=== PATIENT | female | born 1955 | race Caucasian/White ===

== ENCOUNTER 2018-12-06 21:05 | Inpatient (IN) | payer OTHER ==
[~2018-12-06] VITALS: Ht 175.3 cm; Wt 96.6 kg
--- NOTE | 2018-12-06 22:40 | PHYS DOC ---
Past Medical History Past Medical History: High Cholesterol, Hypertension, Hypothyroid, Other Additional Past Medical Histor: SVT. Past Surgical History: Other Additional Past Surgical Histo: INGUINAL HERNIA Alcohol Use: None Drug Use: None Adult General Chief Complaint Chief Complaint: URINARY RETENTION HPI HPI Patient is a 63 year old female who presents complaining of urinary retention. Patient states that she has not urinated since thirty this morning. Patient states that she has had three bottles of water without urinating. Patient states that she has attempted to urinate twice without success. Patient states that she has not felt the urge to urinate, however, she still attempted to urinate as she felt it was odd that she has not since this morning. Patient reports a similar episode last week in which she eventually was able to urinate. Patient notes that she is currently being treated for a UTI with Ciprofloxacin of which she is currently on day 5 of 7. Patient states that she received a phone call from her PCP today and was told that her sodium is low and she should be evaluated by a flag car driver as she is 'not filtering correctly '. Patient reports sensation of abdominal fullness but denies experiencing any pain. Patient states that she would like to attempt to urinate here in the ED. Denies hematuria, urinary frequency, urinary urgency, and dysuria. Review of Systems Review of Systems Constitutional: Denies fever or chills. Eyes: Denies change in visual acuity or eye pain. HENT: Denies nasal congestion or sore throat. Respiratory: Denies cough or shortness of breath. Cardiovascular: Denies chest pain or palpitations. GI: Denies abdominal pain, nausea, vomiting, or diarrhea [] : Denies dysuria or hematuria. Musculoskeletal: Denies back pain or joint pain. Integument: Denies rash or skin lesions. Neurologic: Denies headache, focal weakness or sensory changes. Complete systems were reviewed and found to be within normal limits, except as documented in this note. Current Medications Current Medications Current Medications Medications (Trade) Dose Ordered Sig/Jayden Start Time Stop Time Status Last Admin Dose Admin Ceftriaxone Sodium (Rocephin) 1 gm 1X ONCE 12/06/18 23:45 12/06/18 23:46 DC 12/06/18 23:45 1 GM Fluconazole (Diflucan) 100 mg 1X ONCE 12/06/18 23:45 12/06/18 23:46 DC 12/06/18 23:45 100 MG Magnesium Sulfate 50 ml @ 25 mls/hr 1X ONCE 12/06/18 23:45 12/07/18 01:44 12/06/18 23:45 25 MLS/HR Sodium Chloride 1,000 ml @ 1,000 mls/hr 1X ONCE 12/06/18 23:00 12/06/18 23:59 DC 12/06/18 22:49 1,000 MLS/HR Allergies Allergies Allergies Coded Allergies Type Severity Reaction Last Updated Verified codeine Allergy Intermediate 12/06/18 Yes Physical Exam Physical Exam Constitutional: Well developed, well nourished, no acute distress, non-toxic appearance. HENT: Normocephalic, atraumatic, oropharynx moist, no oral exudates. Eyes: PERRL, EOMI, conjunctiva without erythema. Neck: Normal range of motion, no tenderness, supple. Cardiovascular: Heart rate regular rhythm, no murmur. Lungs & Thorax: Bilateral breath sounds clear to auscultation. No wheezes or rhonchi. Abdomen: Bowel sounds normal, soft, no tenderness on palpation. No rebound or guarding. Skin: Warm, dry, no rash. Back: No tenderness, no CVA tenderness. Extremities: No tenderness, ROM intact, no edema. Neurologic: Alert and oriented X3, normal motor function, normal sensory function, no focal deficits noted. Psychologic: Affect normal. Speech within normal limits. Current Patient Data Vital Signs Vital Signs Date Time Temp Pulse Resp B/P (MAP) Pulse Ox O2 Delivery O2 Flow Rate FiO2 12/06/18 22:55 64 99 12/06/18 21:20 97.4 130/60 (83) Room Air 97.4 Lab Values Laboratory Tests Test 12/06/18 22:33 12/06/18 22:42 Urine Collection Type Unknown Urine Color Yellow Urine Clarity Clear Urine pH 6.5 Urine Specific [place] 1.010 Urine Protein >=300 mg/dL (NEG-TRACE) Urine Glucose (UA) Negative mg/dL (NEG) Urine Ketones (Stick) Negative mg/dL (NEG) Urine Blood Small (NEG) Urine Nitrite Negative (NEG) Urine Bilirubin Negative (NEG) Urine Urobilinogen Dipstick 0.2 mg/dL (0.2 mg/dL) Urine Leukocyte Esterase Small (NEG) Urine RBC 1-2 /HPF (0-2) Urine WBC 11-20 /HPF (0-4) Urine Squamous Epithelial Cells Mod /LPF Urine Bacteria Moderate /HPF (0-FEW) Urine Mucus Slight /LPF Urine Yeast Present /HPF White Blood Count 12.3 x10^3/uL (4.0-11.0) H Red Blood Count 3.67 x10^6/uL (3.50-5.40) Hemoglobin 12.9 g/dL (12.0-15.5) Hematocrit 38.1 % (36.0-47.0) Mean Corpuscular Volume 104 fL (79-100) H Mean Corpuscular Hemoglobin 35 pg (25-35) Mean Corpuscular Hemoglobin Concent 34 g/dL (31-37) Red Cell Distribution Width 13.7 % (11.5-14.5) Platelet Count 242 x10^3/uL (140-400) Neutrophils (%) (Auto) 78 % (31-73) H Lymphocytes (%) (Auto) 8 % (24-48) L Monocytes (%) (Auto) 12 % (0-9) H Eosinophils (%) (Auto) 1 % (0-3) Basophils (%) (Auto) 1 % (0-3) Neutrophils # (Auto) 9.5 x10^3uL (1.8-7.7) H Lymphocytes # (Auto) 1.0 x10^3/uL (1.0-4.8) Monocytes # (Auto) 1.5 x10^3/uL (0.0-1.1) H Eosinophils # (Auto) 0.2 x10^3/uL (0.0-0.7) Basophils # (Auto) 0.1 x10^3/uL (0.0-0.2) Sodium Level 121 mmol/L (136-145) L Potassium Level 4.0 mmol/L (3.5-5.1) Chloride Level 84 mmol/L (98-107) L Carbon Dioxide Level 22 mmol/L (21-32) Anion Gap 15 (6-14) H Blood Urea Nitrogen 23 mg/dL (7-20) H Creatinine 4.1 mg/dL (0.6-1.0) H Estimated GFR (Cockcroft-Gault) 11.0 BUN/Creatinine Ratio 6 (6-20) Glucose Level 118 mg/dL (70-99) H Calcium Level 8.3 mg/dL (8.5-10.1) L Magnesium Level 1.6 mg/dL (1.8-2.4) L Total Bilirubin 0.7 mg/dL (0.2-1.0) Aspartate Amino Transferase (AST) 15 U/L (15-37) Alanine Aminotransferase (ALT) 14 U/L (14-59) Alkaline Phosphatase 84 U/L (46-116) Total Protein 6.9 g/dL (6.4-8.2) Albumin 3.2 g/dL (3.4-5.0) L Albumin/Globulin Ratio 0.9 (1.0-1.7) L Laboratory Tests 12/06/18 22:42 Laboratory Tests 12/06/18 22:42 EKG EKG [] Radiology/Procedures Radiology/Procedures [] Course & Med Decision Making Course & Med Decision Making Pertinent Labs and Imaging studies reviewed. (See chart for details) [] Dragon Disclaimer Dragon Disclaimer This electronic medical record was generated, in whole or in part, using a voice recognition dictation system. Departure Departure Impression: Primary Impression: Acute renal failure Additional Impressions: Hyponatremia Hypomagnesemia UTI (urinary tract infection) Yeast cystitis Disposition: ADMITTED INPATIENT Admitting Physician: Other (Riffel) Condition: GUARDED Referrals: JOEL FRYE (PCP) Critical Care Time Critical care time was 30 minutes which includes time at bedside, spent in discussion of patient's care with specialists and/or family members, with interpretation of laboratory and/or radiological studies and is exclusive of procedures. Problem Qualifiers Primary Impression: Acute renal failure Acute renal failure type: unspecified Qualified Codes: N17.9 - Acute kidney failure, unspecified Additional Impressions: UTI (urinary tract infection) Urinary tract infection type: acute cystitis Hematuria presence: without hematuria Qualified Codes: N30.00 - Acute cystitis without hematuria MARY CARMONA DO Dec 06, 2018 22:40
[2018-12-06 22:55] LABS: BASO # 0.1 x10^3/uL (0.0-0.2); BASO % 1 % (0-3); EOS # 0.2 x10^3/uL (0.0-0.7); EOS % 1 % (0-3); HEMATOCRIT 38.1 % (36.0-47.0); HEMOGLOBIN 12.9 g/dL (12.0-15.5); LYMPH % 8 % (24-48); MEAN CORPUSCULAR HEMOGLOBIN 35 pg (25-35); MEAN CORPUSCULAR HGB CONC 34 g/dL (31-37); MEAN CORPUSCULAR VOLUME 104 fL (79-100); MONO # 1.5 x10^3/uL (0.0-1.1); MONO % 12 % (0-9); NEUT # 9.5 x10^3uL (1.8-7.7); NEUT % 78 % (31-73); PLATELET COUNT 242 x10^3/uL (140-400); RED BLOOD COUNT 3.67 x10^6/uL (3.50-5.40); RED CELL DISTRIBUTION WIDTH 13.7 % (11.5-14.5); WHITE BLOOD COUNT 12.3 x10^3/uL (4.0-11.0)
[2018-12-06 22:55] LABS: BILIRUBIN,URINE NEGATIVE (NEG); CLARITY,URINE CLEAR; COLOR,URINE YELLOW; NITRITE,URINE NEGATIVE (NEG); PH,URINE 6.5; PROTEIN,URINE >=300 mg/dL (NEG-TRACE); UROBILINOGEN,URINE 0.2 mg/dL (0.2 mg/dL)
[2018-12-06 22:58] LABS: SQUAMOUS EPITHELIAL CELL,UR MOD /LPF
[2018-12-06 23:00] LABS: BACTERIA,URINE MODERATE /HPF (0-FEW); YEAST,URINE PRESENT /HPF
[2018-12-06] MEDS ORDERED: IV NORMAL SALINE 1000ML BAG 1,000 ML IV ONE (23:00)
[2018-12-06 23:03] LABS: CALCIUM 8.3 mg/dL (8.5-10.1); CREATININE 4.1 mg/dL (0.6-1.0)
[2018-12-06 23:09] LABS: ALBUMIN 3.2 g/dL (3.4-5.0); ALBUMIN/GLOBULIN RATIO 0.9 (1.0-1.7); MAGNESIUM 1.6 mg/dL (1.8-2.4); TOTAL BILIRUBIN 0.7 mg/dL (0.2-1.0); TOTAL PROTEIN 6.9 g/dL (6.4-8.2)
[2018-12-06] MEDS ORDERED: FLUCONAZOLE 100 MG TABLET. PO ONE (23:45)
[2018-12-06] MEDS ORDERED: MAGNESIUM SULFATE 2GM 50 ML IV ONE (23:45)
[2018-12-06] MEDS ORDERED: cefTRIAXone IV Push 1 GM VIAL. IVP ONE (23:45)
[2018-12-07] MEDS ORDERED: ONDANSETRON PF 4 MG/2 ML VIAL. IV PRN (00:30)
[2018-12-07] MEDS ORDERED: IV NORMAL SALINE 1000ML BAG 1,000 ML IV ONE (01:00)
[2018-12-07] MEDS ORDERED: LOSA-73 PO (01:36)
[2018-12-07] MEDS ORDERED: METO50TA6 PO (01:36)
[2018-12-07] MEDS ORDERED: LEVO75TA5 PO (01:36)
[2018-12-07] MEDS ORDERED: SENN-37 PO (01:36)
[2018-12-07] MEDS ORDERED: SIMV20TA3 PO (01:36)
[2018-12-07 02:29] VITALS: BP 110/49
[2018-12-07] MEDS: LORazepam 0.5 MG TABLET PO PRN ×3 (03:55→20:57)
[2018-12-07 05:47] LABS: CALCIUM 7.8 mg/dL (8.5-10.1); CREATININE 4.2 mg/dL (0.6-1.0); GFR 10.7; POTASSIUM 4.8 mmol/L (3.5-5.1)
[2018-12-07] MEDS: LEVOTHYROXINE 75 MCG TABLET PO SCH (06:38)
[2018-12-07] MEDS: IV NORMAL SALINE 1000ML BAG 1,000 ML IV SCH ×3 (06:40→22:30)
[2018-12-07 07:00] VITALS: BP 115/66
[2018-12-07] MEDS ORDERED: SODIUM CHLORIDE 3 % 100 ML IV ONE (09:00)
[2018-12-07] MEDS: METOPROLOL TART IMMED RELEASE 50 MG TABLET. PO SCH ×2 (09:10→20:55)
[2018-12-07] MEDS: SENNOSIDES/DOCUSATE 8.6/50MG TABLET. PO SCH (09:10)
[2018-12-07 11:00] VITALS: BP 108/66
--- NOTE | 2018-12-07 11:35 | HP ---
ADMIT DATE: 12/07/2018 CHIEF COMPLAINT: Urinary retention. HISTORY OF PRESENT ILLNESS: The patient is a pleasant 63-year-old female who has not been urinating much. She presented for evaluation, rates it at 9. She has associated anxiety. Tried taking some home meds, but that was not working. Her doctor told her to be on low sodium diet, so she has been trying to follow that. She describes her symptoms as irritating. While in the ER, she is noted to have severe hyponatremia of 121 and a white count of 12 and acute renal failure with a creatinine of 4.2. I discussed the case with ER physician. We are going to admit the patient and consult Nephrology. She will be getting some hypertonic saline as well. PAST MEDICAL HISTORY: Hyperlipidemia, hypertension, hypothyroidism, SVT, inguinal hernia. ALLERGIES: CODEINE. FAMILY HISTORY: Coronary artery disease. SOCIAL HISTORY: She does not drink, smoke or take drugs. MEDICATIONS: Reviewed, please refer to MRAD. She is on 5 including simvastatin, metoprolol, losartan, Senokot, Synthroid. REVIEW OF SYSTEMS: GENERAL: No history of weight change, weakness or fevers. SKIN: No bruising, hair changes or rashes. EYES: No blurred, double or loss of vision. NOSE AND THROAT: No history of nosebleeds, hoarseness or sore throat. HEART: No history of palpitations, chest pain or shortness of breath on exertion. LUNGS: Denies cough, hemoptysis, wheezing or shortness of breath. GASTROINTESTINAL: Denies changes in appetite, nausea, vomiting, diarrhea or constipation. GENITOURINARY: She complains of dysuria and low urine output. NEUROLOGIC: Denies history of numbness, tingling, tremor or weakness. PSYCHIATRIC: No history of panic, anxiety or depression. ENDOCRINE: No history of heat or cold intolerance, polyuria or polydipsia. EXTREMITIES: Denies muscle weakness, joint pain, pain on walking or stiffness. PHYSICAL EXAMINATION: VITAL SIGNS: Temperature is afebrile, pulse 92, respirations 16, blood pressure 144/90. GENERAL: She is alert, cooperative. HEART: Normal S1, S2. LUNGS: Clear. ABDOMEN: Soft. EXTREMITIES: Trace edema. SKIN: No rash. ENDOCRINE: No thyromegaly. LYMPHATICS: No cervical edema. HEMATOPOIETIC: No bruising. PSYCHIATRIC: She is stable, a little anxious though. LABORATORY DATA: Electrolytes: Sodium 121, potassium 4, chloride 84, bicarbonate 22, BUN is 23, creatinine 4.1, glucose 118. ASSESSMENT AND PLAN: Severe hyponatremia and acute renal failure. The patient has been admitted. We are going to try some hypertonic saline. Consult Nephrology. IV fluids to try to hydrate her well and see if her creatinine will drop. Frequent labs. Deep venous thrombosis prophylaxis. Full code. Resume home meds except for the losartan. PROGNOSIS: Guarded. TOTAL TIME: 32 minutes. AMANDA IRBY DO DR: MARGY/amie JOB#: [id number] / [id number]
--- NOTE | 2018-12-07 11:48 | RAD ---
Renal ultrasound, 12/07/2018: HISTORY: Acute kidney injury The right kidney measures 13.5 cm in length while the left kidney measures 12.3 cm. There is no evidence of hydronephrosis or a renal mass. The renal parenchymal echogenicity is within normal limits. The bladder is largely collapsed and not adequately delineated. IMPRESSION: No significant renal abnormality is detected. Electronically signed by: Bridger Baca MD (12/07/2018 11:45 AM) [facility]
--- NOTE | 2018-12-07 14:06 | PDOC2 ---
CONSULT Date of Consult Date of Consult DATE: 12/07/18 TIME: 13:51 Reason for Consult Reason for Consult: RENAL FAILURE AND LOW NA Referring Physician Referring Physician: ANITAFEL Identification/Chief Complaint Chief Complaint ABNORMAL LABS Source Source: Chart review, Patient History of Present Illness Reason for Visit: THIS IS A 63 YR OLD PT WHO SEES DR JOEL FRYE OP. SHE WAS SEEN IN 2016 AT WHICH TIME HER LABS WERE NORMAL. SHE WAS TREATED FOR AN UTI LAST WEEK WITH [facility]. HER FIRST VISIT IN THE OFFICE SINCE 2015 WAS LAST WEEK ON Thursday12-02-18. AT WHICH TIME LABS WERE DRAWN AND SHE WAS NOTIFIED OF LAB RESULTS YESTERDAY AND TOLD TO GO TO THE ER PER THE WET SUIT GLUER AT DR WASHBURN OFFICE. PT STATES THAT SHE HAS NOT BEEN ABLE TO URINATE AND THEREFORE CAME TO THE ER. NO NEPHROTOXINS NOTED. NO NSAIDS. NO HX OF ANY KIDNEY OR BLADDER SURGERIES HEMATURIA NOTED. NO OTHER HX. PT DOES STATE THAT SHE RAN OUT OF HER HTN MEDS AND TOOK ONE OF HER MOTHERS BP MEDS BUT CANNOT RECALL WHAT IT IS. SHE IS A POOR HISTORIAN. OP MEDS PER OFFICE INDICATED METOPROLOL AND LOSARTAN HER ONLY TWO ANTIHYPERTENSIVES. APPETITE NOT THE BEST PER PT BUT N/V OR DIARRHEA Past Medical History Cardiovascular: HTN, Hyperlipidemia, Other (PSVT) Pulmonary: Other (ALLERGIC RHINITIS) GI: No pertinent hx Heme/Onc: No pertinent hx Renal/: No pertinent hx Endocrine: Hypothyroidism Social History Quit Drugs: None Lives: with Family Current Problem List Problem List Problems Medical Problems: (1) Acute renal failure Status: Acute (2) Hypomagnesemia Status: Acute (3) Hyponatremia Status: Acute (4) UTI (urinary tract infection) Status: Acute (5) Yeast cystitis Status: Acute Current Medications Current Medications Current Medications Sodium Chloride 1,000 ml @ 1,000 mls/hr 1X ONCE IV Last administered on at 22:49; Start 12/06/18 at 23:00; Stop 12/06/18 at 23:59; Status DC Magnesium Sulfate 50 ml @ 25 mls/hr 1X ONCE IV Last administered on 12/06/18at 23:45; Start 12/06/18 at 23:45; Stop 12/07/18 at 01:44; Status DC Ceftriaxone Sodium (Rocephin) 1 gm 1X ONCE IVP Last administered on 12/06/18at 23:45; Start 12/06/18 at 23:45; Stop 12/06/18 at 23:46; Status DC Fluconazole (Diflucan) 100 mg 1X ONCE PO Last administered on 12/06/18at 23:45; Start 12/06/18 at 23:45; Stop 12/06/18 at 23:46; Status DC Ondansetron HCl (Zofran) 4 mg PRN Q8HRS PRN IV NAUSEA/VOMITING 1ST CHOICE Last administered on 12/07/18at 00:38; Start 12/07/18 at 00:30; Stop 12/08/18 at 00:29 Sodium Chloride 1,000 ml @ 100 mls/hr 1X ONCE IV Last administered on at 02:05; Start 12/07/18 at 01:00; Stop 12/07/18 at 10:59; Status DC Levothyroxine Sodium (Synthroid) 75 mcg DAILY06 PO Last administered on at 06:38; Start 12/07/18 at 06:00 Metoprolol Tartrate (Lopressor) 50 mg BID PO Last administered on 12/07/18at 09: 10; Start 12/07/18 at 09:00 Senna/Docusate Sodium (Senna Plus) 1 tab DAILY PO Last administered on at 09:10; Start 12/07/18 at 09:00 Simvastatin (Zocor) 20 mg HS PO ; Start 12/07/18 at 21:00 Lorazepam (Ativan) 0.5 mg PRN Q6HRS PRN PO ANXIETY / AGITATION Last administered on 12/07/18at 10:26; Start 12/07/18 at 03:00 Sodium Chloride 1,000 ml @ 100 mls/hr Q10H IV Last administered on 12/07/18 10 :25; Start 12/07/18 at 06:00 Sodium Chloride 100 ml @ 30 mls/hr 1X ONCE IV Last administered on 12/07/18 10:25; Start 12/07/18 at 09:00; Stop 12/07/18 at 12:19; Status DC Active Scripts Active Reported Metoprolol Tartrate 50 Mg Tablet 50 Mg PO BID Simvastatin 20 Mg Tablet 20 Mg PO HS Levothyroxine Sodium 75 Mcg Tablet 75 Mcg PO DAILYAC Senokot-S Tablet (Sennosides/Docusate Sodium) 1 Each Tablet 1 Each PO DAILY Losartan Potassium 50 Mg Tablet 50 Mg PO DAILY Allergies Allergies: Coded Allergies: codeine (Verified Allergy, Intermediate, 12/06/18) ROS General: YES: Fatigue, Malaise, Appetite Eyes: Yes Decreased vision HEENT: YES: Heacaches ALLERGY AND IMMUNOLOGY: YES: Seasonal Allergies Respiratory: YES: Cough Gastrointestinal: Yes Constipation Genitourinary: YES Retention Musculoskeletal: Yes Muscular Weakness Neurological: Yes Weakness Skin: Yes Dry Skin Physical Exam General: Alert, Oriented X3, Cooperative, No acute distress, mild distress HEENT: Atraumatic, PERRLA, EOMI, Mucous membr. moist/pink Lungs: Clear to auscultation Heart: Regular rate, Normal S1, Normal S2 Abdomen: Normal bowel sounds, Soft, No tenderness Extremities: No clubbing, No cyanosis Skin: No breakdown Neuro: Normal speech, Sensation intact Psych/Mental Status: Mental status NL, Mood NL MUSCULOSKELETAL: No joint tenderness, No deformity, No swelling Vitals VITALS Vital Signs Date Time Temp Pulse Resp B/P (MAP) Pulse Ox O2 Delivery O2 Flow Rate FiO2 12/07/18 11:00 98.1 65 16 108/66 (80) 96 Room Air 98.1 Labs Labs Laboratory Tests Test 12/06/18 22:33 12/06/18 22:42 12/07/18 05:00 Urine Collection Type Unknown Urine Color Yellow Urine Clarity Clear Urine pH 6.5 Urine Specific [place] 1.010 Urine Protein >=300 mg/dL (NEG-TRACE) Urine Glucose (UA) Negative mg/dL (NEG) Urine Ketones (Stick) Negative mg/dL (NEG) Urine Blood Small (NEG) Urine Nitrite Negative (NEG) Urine Bilirubin Negative (NEG) Urine Urobilinogen Dipstick 0.2 mg/dL (0.2 mg/dL) Urine Leukocyte Esterase Small (NEG) Urine RBC 1-2 /HPF (0-2) Urine WBC 11-20 /HPF (0-4) Urine Squamous Epithelial Cells Mod /LPF Urine Bacteria Moderate /HPF (0-FEW) Urine Mucus Slight /LPF Urine Yeast Present /HPF White Blood Count 12.3 x10^3/uL (4.0-11.0) Red Blood Count 3.67 x10^6/uL (3.50-5.40) Hemoglobin 12.9 g/dL (12.0-15.5) Hematocrit 38.1 % (36.0-47.0) Mean Corpuscular Volume 104 fL (79-100) Mean Corpuscular Hemoglobin 35 pg (25-35) Mean Corpuscular Hemoglobin Concent 34 g/dL (31-37) Red Cell Distribution Width 13.7 % (11.5-14.5) Platelet Count 242 x10^3/uL (140-400) Neutrophils (%) (Auto) 78 % (31-73) Lymphocytes (%) (Auto) 8 % (24-48) Monocytes (%) (Auto) 12 % (0-9) Eosinophils (%) (Auto) 1 % (0-3) Basophils (%) (Auto) 1 % (0-3) Neutrophils # (Auto) 9.5 x10^3uL (1.8-7.7) Lymphocytes # (Auto) 1.0 x10^3/uL (1.0-4.8) Monocytes # (Auto) 1.5 x10^3/uL (0.0-1.1) Eosinophils # (Auto) 0.2 x10^3/uL (0.0-0.7) Basophils # (Auto) 0.1 x10^3/uL (0.0-0.2) Sodium Level 121 mmol/L (136-145) 119 mmol/L (136-145) Potassium Level 4.0 mmol/L (3.5-5.1) 4.8 mmol/L (3.5-5.1) Chloride Level 84 mmol/L (98-107) 85 mmol/L (98-107) Carbon Dioxide Level 22 mmol/L (21-32) 24 mmol/L (21-32) Anion Gap 15 (6-14) 10 (6-14) Blood Urea Nitrogen 23 mg/dL (7-20) 23 mg/dL (7-20) Creatinine 4.1 mg/dL (0.6-1.0) 4.2 mg/dL (0.6-1.0) Estimated GFR (Cockcroft-Gault) 11.0 10.7 BUN/Creatinine Ratio 6 (6-20) Glucose Level 118 mg/dL (70-99) 118 mg/dL (70-99) Calcium Level 8.3 mg/dL (8.5-10.1) 7.8 mg/dL (8.5-10.1) Magnesium Level 1.6 mg/dL (1.8-2.4) Total Bilirubin 0.7 mg/dL (0.2-1.0) Aspartate Amino Transf (AST/SGOT) 15 U/L (15-37) Alanine Aminotransferase (ALT/SGPT) 14 U/L (14-59) Alkaline Phosphatase 84 U/L (46-116) Total Protein 6.9 g/dL (6.4-8.2) Albumin 3.2 g/dL (3.4-5.0) Albumin/Globulin Ratio 0.9 (1.0-1.7) Thyroid Stimulating Hormone (TSH) 2.302 uIU/mL (0.358-3.74) Laboratory Tests Test 12/06/18 22:33 12/06/18 22:42 12/07/18 05:00 Urine Collection Type Unknown Urine Color Yellow Urine Clarity Clear Urine pH 6.5 Urine Specific [place] 1.010 Urine Protein >=300 mg/dL (NEG-TRACE) Urine Glucose (UA) Negative mg/dL (NEG) Urine Ketones (Stick) Negative mg/dL (NEG) Urine Blood Small (NEG) Urine Nitrite Negative (NEG) Urine Bilirubin Negative (NEG) Urine Urobilinogen Dipstick 0.2 mg/dL (0.2 mg/dL) Urine Leukocyte Esterase Small (NEG) Urine RBC 1-2 /HPF (0-2) Urine WBC 11-20 /HPF (0-4) Urine Squamous Epithelial Cells Mod /LPF Urine Bacteria Moderate /HPF (0-FEW) Urine Mucus Slight /LPF Urine Yeast Present /HPF White Blood Count 12.3 x10^3/uL (4.0-11.0) Red Blood Count 3.67 x10^6/uL (3.50-5.40) Hemoglobin 12.9 g/dL (12.0-15.5) Hematocrit 38.1 % (36.0-47.0) Mean Corpuscular Volume 104 fL (79-100) Mean Corpuscular Hemoglobin 35 pg (25-35) Mean Corpuscular Hemoglobin Concent 34 g/dL (31-37) Red Cell Distribution Width 13.7 % (11.5-14.5) Platelet Count 242 x10^3/uL (140-400) Neutrophils (%) (Auto) 78 % (31-73) Lymphocytes (%) (Auto) 8 % (24-48) Monocytes (%) (Auto) 12 % (0-9) Eosinophils (%) (Auto) 1 % (0-3) Basophils (%) (Auto) 1 % (0-3) Neutrophils # (Auto) 9.5 x10^3uL (1.8-7.7) Lymphocytes # (Auto) 1.0 x10^3/uL (1.0-4.8) Monocytes # (Auto) 1.5 x10^3/uL (0.0-1.1) Eosinophils # (Auto) 0.2 x10^3/uL (0.0-0.7) Basophils # (Auto) 0.1 x10^3/uL (0.0-0.2) Sodium Level 121 mmol/L (136-145) 119 mmol/L (136-145) Potassium Level 4.0 mmol/L (3.5-5.1) 4.8 mmol/L (3.5-5.1) Chloride Level 84 mmol/L (98-107) 85 mmol/L (98-107) Carbon Dioxide Level 22 mmol/L (21-32) 24 mmol/L (21-32) Anion Gap 15 (6-14) 10 (6-14) Blood Urea Nitrogen 23 mg/dL (7-20) 23 mg/dL (7-20) Creatinine 4.1 mg/dL (0.6-1.0) 4.2 mg/dL (0.6-1.0) Estimated GFR (Cockcroft-Gault) 11.0 10.7 BUN/Creatinine Ratio 6 (6-20) Glucose Level 118 mg/dL (70-99) 118 mg/dL (70-99) Calcium Level 8.3 mg/dL (8.5-10.1) 7.8 mg/dL (8.5-10.1) Magnesium Level 1.6 mg/dL (1.8-2.4) Total Bilirubin 0.7 mg/dL (0.2-1.0) Aspartate Amino Transf (AST/SGOT) 15 U/L (15-37) Alanine Aminotransferase (ALT/SGPT) 14 U/L (14-59) Alkaline Phosphatase 84 U/L (46-116) Total Protein 6.9 g/dL (6.4-8.2) Albumin 3.2 g/dL (3.4-5.0) Albumin/Globulin Ratio 0.9 (1.0-1.7) Thyroid Stimulating Hormone (TSH) 2.302 uIU/mL (0.358-3.74) Assessment/Plan Assessment/Plan IMP SEVERE HYPONATREMIA ARCENIO-ETIOLOGY UNKNOWN RECENT UTI HTN HX LOW MAG PLAN HYDRATION AVOID NEPHROTOXINS 3 % SALINE URINE AND SERUM OSMO URINE LYTES CHECK TSH REPLACE MAG RENAL SONOGRAM PT WILL TRY TO FIND OUT WHICH MED SHE TOOK FROM HER MOTHER KATHLEEN MOBLEY MD Dec 07, 2018 14:06
[2018-12-07] MEDS ORDERED: MAGNESIUM SULFATE 2GM 50 ML IV ONE (14:15)
[2018-12-07 15:00] VITALS: BP 117/55
--- NOTE | 2018-12-07 15:02 | NUR ---
SW following pt for anticipated dc needs. Chart reviewed and discussed with RN. Pt lives at home with family. Nephrology currently following pt. No discharge recommendations noted at this time. Will continue to follow.
--- NOTE | 2018-12-07 16:55 | NUR ---
Relayed result of serum Na [address] Chi. Orders received for another round of sodium correction.
[2018-12-07] MEDS ORDERED: SODIUM CHLORIDE 3 % 300 ML IV ONE (17:00)
[2018-12-07 17:11] LABS: SODIUM, URINE 67 mmol/L (Not Estab.); UR POTASSIUM 12.3 mmol/L (Not Estab.)
[2018-12-07 19:30] VITALS: BP 117/60
[2018-12-07] MEDS ORDERED: MOME13HF2 IH (19:35)
[2018-12-07] MEDS: SIMVASTATIN 20 MG TABLET PO SCH (20:55)
[2018-12-07] MEDS: BUDESONIDE 0.5 MG/2 ML NEBU. NEB SCH (21:52)
[2018-12-07] MEDS: ALBUTEROL SULFATE 2.5 MG/3 ML NEBU. NEB SCH (21:53)
[2018-12-07 23:30] VITALS: BP 102/60
[2018-12-08 03:30] VITALS: BP 121/58
[2018-12-08 05:23] LABS: BASO # 0.1 x10^3/uL (0.0-0.2); BASO % 1 % (0-3); EOS % 0 % (0-3); HEMATOCRIT 34.4 % (36.0-47.0); HEMOGLOBIN 11.9 g/dL (12.0-15.5); LYMPH # 0.5 x10^3/uL (1.0-4.8); LYMPH % 6 % (24-48); MEAN CORPUSCULAR HEMOGLOBIN 36 pg (25-35); MEAN CORPUSCULAR HGB CONC 35 g/dL (31-37); MEAN CORPUSCULAR VOLUME 104 fL (79-100); MONO # 0.9 x10^3/uL (0.0-1.1); MONO % 11 % (0-9); NEUT # 6.9 x10^3uL (1.8-7.7); NEUT % 83 % (31-73); PLATELET COUNT 191 x10^3/uL (140-400); RED BLOOD COUNT 3.32 x10^6/uL (3.50-5.40); RED CELL DISTRIBUTION WIDTH 13.8 % (11.5-14.5); WHITE BLOOD COUNT 8.4 x10^3/uL (4.0-11.0)
[2018-12-08] MEDS: LEVOTHYROXINE 75 MCG TABLET PO SCH (06:03)
[2018-12-08 06:04] LABS: CALCIUM 7.7 mg/dL (8.5-10.1); CREATININE 5.2 mg/dL (0.6-1.0); GFR 8.3; MAGNESIUM 2.6 mg/dL (1.8-2.4); POTASSIUM 4.8 mmol/L (3.5-5.1)
[2018-12-08 07:20] VITALS: BP 111/74
[2018-12-08] MEDS: BUDESONIDE 0.5 MG/2 ML NEBU. NEB SCH ×2 (08:04→19:48)
[2018-12-08] MEDS: ALBUTEROL SULFATE 2.5 MG/3 ML NEBU. NEB SCH ×4 (08:04→19:50)
[2018-12-08] MEDS: SENNOSIDES/DOCUSATE 8.6/50MG TABLET. PO SCH (09:00)
[2018-12-08] MEDS ORDERED: NON FORMULARY ITEM (Mometasone/Formoterol (Dulera 100 Mcg/5 Mcg Inhaler) 2 PUFF) IH SCH (09:00)
[2018-12-08] MEDS: METOPROLOL TART IMMED RELEASE 50 MG TABLET. PO SCH ×2 (09:54→20:44)
[2018-12-08 10:56] VITALS: BP 103/61
--- NOTE | 2018-12-08 11:52 | PDOC ---
PROGRESS NOTES Chief Complaint Chief Complaint Hyponatremia and acute renal failure Urinary retention UTI HLD HTN Hypothyroidism SVT History of Present Illness History of Present Illness Pt sitting up in bed, watching TV Denies any new complaints Vitals Vitals Vital Signs Date Time Temp Pulse Resp B/P (MAP) Pulse Ox O2 Delivery O2 Flow Rate FiO2 12/08/18 10:56 98.3 72 20 103/61 (75) 95 Room Air 98.3 Physical Exam General: Alert, Oriented X3, Cooperative, No acute distress Heart: Regular rate, Normal S1, Normal S2, No murmurs Lungs: Clear, Other (No crackles, wheezing or ronchi) Abdomen: Normal bowel sounds, Soft, No tenderness Extremities: No clubbing, No cyanosis, No edema Skin: No rashes, No breakdown, No significant lesion Labs LABS Laboratory Tests Test 12/07/18 16:05 12/08/18 04:40 Sodium Level 121 mmol/L (136-145) 122 mmol/L (136-145) White Blood Count 8.4 x10^3/uL (4.0-11.0) Red Blood Count 3.32 x10^6/uL (3.50-5.40) Hemoglobin 11.9 g/dL (12.0-15.5) Hematocrit 34.4 % (36.0-47.0) Mean Corpuscular Volume 104 fL (79-100) Mean Corpuscular Hemoglobin 36 pg (25-35) Mean Corpuscular Hemoglobin Concent 35 g/dL (31-37) Red Cell Distribution Width 13.8 % (11.5-14.5) Platelet Count 191 x10^3/uL (140-400) Neutrophils (%) (Auto) 83 % (31-73) Lymphocytes (%) (Auto) 6 % (24-48) Monocytes (%) (Auto) 11 % (0-9) Eosinophils (%) (Auto) 0 % (0-3) Basophils (%) (Auto) 1 % (0-3) Neutrophils # (Auto) 6.9 x10^3uL (1.8-7.7) Lymphocytes # (Auto) 0.5 x10^3/uL (1.0-4.8) Monocytes # (Auto) 0.9 x10^3/uL (0.0-1.1) Eosinophils # (Auto) 0.0 x10^3/uL (0.0-0.7) Basophils # (Auto) 0.1 x10^3/uL (0.0-0.2) Potassium Level 4.8 mmol/L (3.5-5.1) Chloride Level 91 mmol/L (98-107) Carbon Dioxide Level 19 mmol/L (21-32) Anion Gap 12 (6-14) Blood Urea Nitrogen 25 mg/dL (7-20) Creatinine 5.2 mg/dL (0.6-1.0) Estimated GFR (Cockcroft-Gault) 8.3 Glucose Level 117 mg/dL (70-99) Calcium Level 7.7 mg/dL (8.5-10.1) Magnesium Level 2.6 mg/dL (1.8-2.4) Review of Systems Review of Systems Denies any F/C Denies N/V Denies CP, SOA Assessment and Plan Assessmemt and Plan Assessment: Acute renal failure, Cr 5.2 from 4.2 Hyponatremia, 122 from 119 Hypomagnesemia, resolved Urinary retention UTI yest cystitis HLD HTN Hypothyroidism, on Synthroid, TSH 2.3 SVT Plan: Refractory hyponatremia, appreciate Nephrology input Awaiting urine and serum osmolarity U/s revealed no significant renal abnormality NS @ 100/hr Recheck labs in am PT/OT Ordered Home meds, holding losartan Monitor I&O's Problems Medical Problems: (1) Acute renal failure Status: Acute (2) Hypomagnesemia Status: Acute (3) Hyponatremia Status: Acute (4) UTI (urinary tract infection) Status: Acute (5) Yeast cystitis Status: Acute Comment Review of Relevant I have reviewed the following items timmy (where applicable) has been applied. Labs Laboratory Tests Test 12/06/18 22:33 12/06/18 22:42 12/07/18 05:00 12/07/18 09:30 Urine Collection Type Unknown Urine Color Yellow Urine Clarity Clear Urine pH 6.5 Urine Specific Wells 1.010 Urine Protein >=300 mg/dL (NEG-TRACE) Urine Glucose (UA) Negative mg/dL (NEG) Urine Ketones (Stick) Negative mg/dL (NEG) Urine Blood Small (NEG) Urine Nitrite Negative (NEG) Urine Bilirubin Negative (NEG) Urine Urobilinogen Dipstick 0.2 mg/dL (0.2 mg/dL) Urine Leukocyte Esterase Small (NEG) Urine RBC 1-2 /HPF (0-2) Urine WBC 11-20 /HPF (0-4) Urine Squamous Epithelial Cells Mod /LPF Urine Bacteria Moderate /HPF (0-FEW) Urine Mucus Slight /LPF Urine Yeast Present /HPF White Blood Count 12.3 x10^3/uL (4.0-11.0) Red Blood Count 3.67 x10^6/uL (3.50-5.40) Hemoglobin 12.9 g/dL (12.0-15.5) Hematocrit 38.1 % (36.0-47.0) Mean Corpuscular Volume 104 fL (79-100) Mean Corpuscular Hemoglobin 35 pg (25-35) Mean Corpuscular Hemoglobin Concent 34 g/dL (31-37) Red Cell Distribution Width 13.7 % (11.5-14.5) Platelet Count 242 x10^3/uL (140-400) Neutrophils (%) (Auto) 78 % (31-73) Lymphocytes (%) (Auto) 8 % (24-48) Monocytes (%) (Auto) 12 % (0-9) Eosinophils (%) (Auto) 1 % (0-3) Basophils (%) (Auto) 1 % (0-3) Neutrophils # (Auto) 9.5 x10^3uL (1.8-7.7) Lymphocytes # (Auto) 1.0 x10^3/uL (1.0-4.8) Monocytes # (Auto) 1.5 x10^3/uL (0.0-1.1) Eosinophils # (Auto) 0.2 x10^3/uL (0.0-0.7) Basophils # (Auto) 0.1 x10^3/uL (0.0-0.2) Sodium Level 121 mmol/L (136-145) 119 mmol/L (136-145) Potassium Level 4.0 mmol/L (3.5-5.1) 4.8 mmol/L (3.5-5.1) Chloride Level 84 mmol/L (98-107) 85 mmol/L (98-107) Carbon Dioxide Level 22 mmol/L (21-32) 24 mmol/L (21-32) Anion Gap 15 (6-14) 10 (6-14) Blood Urea Nitrogen 23 mg/dL (7-20) 23 mg/dL (7-20) Creatinine 4.1 mg/dL (0.6-1.0) 4.2 mg/dL (0.6-1.0) Estimated GFR (Cockcroft-Gault) 11.0 10.7 BUN/Creatinine Ratio 6 (6-20) Glucose Level 118 mg/dL (70-99) 118 mg/dL (70-99) Calcium Level 8.3 mg/dL (8.5-10.1) 7.8 mg/dL (8.5-10.1) Magnesium Level 1.6 mg/dL (1.8-2.4) Total Bilirubin 0.7 mg/dL (0.2-1.0) Aspartate Amino Transf (AST/SGOT) 15 U/L (15-37) Alanine Aminotransferase (ALT/SGPT) 14 U/L (14-59) Alkaline Phosphatase 84 U/L (46-116) Total Protein 6.9 g/dL (6.4-8.2) Albumin 3.2 g/dL (3.4-5.0) Albumin/Globulin Ratio 0.9 (1.0-1.7) Thyroid Stimulating Hormone (TSH) 2.302 uIU/mL (0.358-3.74) Urine Sodium 67 mmol/L (Not Estab.) Urine Potassium 12.3 mmol/L (Not Estab.) Urine Chloride <60 mmol/L (Not Estab.) Test 12/07/18 16:05 12/08/18 04:40 Sodium Level 121 mmol/L (136-145) 122 mmol/L (136-145) White Blood Count 8.4 x10^3/uL (4.0-11.0) Red Blood Count 3.32 x10^6/uL (3.50-5.40) Hemoglobin 11.9 g/dL (12.0-15.5) Hematocrit 34.4 % (36.0-47.0) Mean Corpuscular Volume 104 fL (79-100) Mean Corpuscular Hemoglobin 36 pg (25-35) Mean Corpuscular Hemoglobin Concent 35 g/dL (31-37) Red Cell Distribution Width 13.8 % (11.5-14.5) Platelet Count 191 x10^3/uL (140-400) Neutrophils (%) (Auto) 83 % (31-73) Lymphocytes (%) (Auto) 6 % (24-48) Monocytes (%) (Auto) 11 % (0-9) Eosinophils (%) (Auto) 0 % (0-3) Basophils (%) (Auto) 1 % (0-3) Neutrophils # (Auto) 6.9 x10^3uL (1.8-7.7) Lymphocytes # (Auto) 0.5 x10^3/uL (1.0-4.8) Monocytes # (Auto) 0.9 x10^3/uL (0.0-1.1) Eosinophils # (Auto) 0.0 x10^3/uL (0.0-0.7) Basophils # (Auto) 0.1 x10^3/uL (0.0-0.2) Potassium Level 4.8 mmol/L (3.5-5.1) Chloride Level 91 mmol/L (98-107) Carbon Dioxide Level 19 mmol/L (21-32) Anion Gap 12 (6-14) Blood Urea Nitrogen 25 mg/dL (7-20) Creatinine 5.2 mg/dL (0.6-1.0) Estimated GFR (Cockcroft-Gault) 8.3 Glucose Level 117 mg/dL (70-99) Calcium Level 7.7 mg/dL (8.5-10.1) Magnesium Level 2.6 mg/dL (1.8-2.4) Laboratory Tests Test 12/07/18 16:05 12/08/18 04:40 Sodium Level 121 mmol/L (136-145) 122 mmol/L (136-145) White Blood Count 8.4 x10^3/uL (4.0-11.0) Red Blood Count 3.32 x10^6/uL (3.50-5.40) Hemoglobin 11.9 g/dL (12.0-15.5) Hematocrit 34.4 % (36.0-47.0) Mean Corpuscular Volume 104 fL (79-100) Mean Corpuscular Hemoglobin 36 pg (25-35) Mean Corpuscular Hemoglobin Concent 35 g/dL (31-37) Red Cell Distribution Width 13.8 % (11.5-14.5) Platelet Count 191 x10^3/uL (140-400) Neutrophils (%) (Auto) 83 % (31-73) Lymphocytes (%) (Auto) 6 % (24-48) Monocytes (%) (Auto) 11 % (0-9) Eosinophils (%) (Auto) 0 % (0-3) Basophils (%) (Auto) 1 % (0-3) Neutrophils # (Auto) 6.9 x10^3uL (1.8-7.7) Lymphocytes # (Auto) 0.5 x10^3/uL (1.0-4.8) Monocytes # (Auto) 0.9 x10^3/uL (0.0-1.1) Eosinophils # (Auto) 0.0 x10^3/uL (0.0-0.7) Basophils # (Auto) 0.1 x10^3/uL (0.0-0.2) Potassium Level 4.8 mmol/L (3.5-5.1) Chloride Level 91 mmol/L (98-107) Carbon Dioxide Level 19 mmol/L (21-32) Anion Gap 12 (6-14) Blood Urea Nitrogen 25 mg/dL (7-20) Creatinine 5.2 mg/dL (0.6-1.0) Estimated GFR (Cockcroft-Gault) 8.3 Glucose Level 117 mg/dL (70-99) Calcium Level 7.7 mg/dL (8.5-10.1) Magnesium Level 2.6 mg/dL (1.8-2.4) Medications Current Medications Sodium Chloride 1,000 ml @ 1,000 mls/hr 1X ONCE IV Last administered on at 22:49; Start 12/06/18 at 23:00; Stop 12/06/18 at 23:59; Status DC Magnesium Sulfate 50 ml @ 25 mls/hr 1X ONCE IV Last administered on 12/06/18at 23:45; Start 12/06/18 at 23:45; Stop 12/07/18 at 01:44; Status DC Ceftriaxone Sodium (Rocephin) 1 gm 1X ONCE IVP Last administered on 12/06/18at 23:45; Start 12/06/18 at 23:45; Stop 12/06/18 at 23:46; Status DC Fluconazole (Diflucan) 100 mg 1X ONCE PO Last administered on 12/06/18 23:45; Start 12/06/18 at 23:45; Stop 12/06/18 at 23:46; Status DC Ondansetron HCl (Zofran) 4 mg PRN Q8HRS PRN IV NAUSEA/VOMITING 1ST CHOICE Last administered on 12/07/18 00:38; Start 12/07/18 at 00:30; Stop 12/08/18 at 00:29; Status DC Sodium Chloride 1,000 ml @ 100 mls/hr 1X ONCE IV Last administered on 02:05; Start 12/07/18 at 01:00; Stop 12/07/18 at 10:59; Status DC Levothyroxine Sodium (Synthroid) 75 mcg DAILY06 PO Last administered on 06:03; Start 12/07/18 at 06:00 Metoprolol Tartrate (Lopressor) 50 mg BID PO Last administered on 12/08/18 09: 54; Start 12/07/18 at 09:00 Senna/Docusate Sodium (Senna Plus) 1 tab DAILY PO Last administered on 09:10; Start 12/07/18 at 09:00 Simvastatin (Zocor) 20 mg HS PO Last administered on 12/07/18 20:55; Start 12/07 at 21:00 Lorazepam (Ativan) 0.5 mg PRN Q6HRS PRN PO ANXIETY / AGITATION Last administered on 12/07/18 20:57; Start 12/07/18 at 03:00 Sodium Chloride 1,000 ml @ 100 mls/hr Q10H IV Last administered on 12/07/18 22 :30; Start 12/07/18 at 06:00 Sodium Chloride 100 ml @ 30 mls/hr 1X ONCE IV Last administered on 12/07/18 10:25; Start 12/07/18 at 09:00; Stop 12/07/18 at 12:19; Status DC Magnesium Sulfate 50 ml @ 25 mls/hr 1X ONCE IV Last administered on 12/07/18 15:41; Start 12/07/18 at 14:15; Stop 12/07/18 at 16:14; Status DC Sodium Chloride 300 ml @ 0 mls/hr 1X ONCE IV Last administered on 4/2/19at 19: 12; Start 12/07/18 at 17:00; Stop 12/07/18 at 17:04; Status DC Non-Formulary Medication (Mometasone/ Formoterol (Dulera 100 Mcg/5 Mcg Inhaler) ) 2 puff BID IH ; Start 12/08/18 at 09:00; Status UNV Albuterol Sulfate (Ventolin Neb Soln) 2.5 mg RTQID NEB Last administered on 12/08at 08:04; Start 12/07/18 at 22:00 Budesonide (Pulmicort) 0.5 mg RTBID NEB Last administered on 12/08/18at 08:04; Start 12/07/18 at 22:00 Active Scripts Active Reported Dulera 100 Mcg/5 Mcg Inhaler (Mometasone/Formoterol) 13 Gm Hfa.aer.ad 2 Puff IH BID Metoprolol Tartrate 50 Mg Tablet 50 Mg PO BID Simvastatin 20 Mg Tablet 20 Mg PO HS Levothyroxine Sodium 75 Mcg Tablet 75 Mcg PO DAILYAC Senokot-S Tablet (Sennosides/Docusate Sodium) 1 Each Tablet 1 Each PO DAILY Losartan Potassium 50 Mg Tablet 50 Mg PO DAILY Vitals/I & O Vital Sign - Last 24 Hours 12/07/18 12/07/18 12/07/18 12/07/18 15:00 19:30 20:15 20:55 Temp 97.9 97.5 97.9 97.5 Pulse 69 73 73 Resp 18 16 B/P (MAP) 117/55 (75) 117/60 (79) 117/60 Pulse Ox 96 97 O2 Delivery Room Air Room Air Room Air 12/07/18 12/08/18 12/08/18 12/08/18 23:30 03:30 07:20 08:04 Temp 97.5 98.5 97.9 97.5 98.5 97.9 Pulse 78 79 76 Resp 16 16 19 B/P (MAP) 102/60 (74) 121/58 (79) 111/74 (86) Pulse Ox 93 93 96 96 O2 Delivery Room Air Room Air Room Air Room Air 12/08/18 12/08/18 09:54 10:56 Temp 98.3 98.3 Pulse 76 72 Resp 20 B/P (MAP) 111/74 103/61 (75) Pulse Ox 95 O2 Delivery Room Air Intake and Output 12/07/18 12/07/18 12/08/18 14:59 22:59 06:59 Intake Total 880 ml 220 ml 150 ml Output Total 550 ml 1500 ml Balance 880 ml -330 ml -1350 ml AMANDA IRBY III DO Dec 08, 2018 11:52
--- NOTE | 2018-12-08 12:43 | PDOC ---
Renal-Progress Notes Subjective Notes Notes NO NEW COMPLAINTS History of Present Illness Hx of present illness ARCENIO IS WORSE Vitals Vitals Vital Signs Date Time Temp Pulse Resp B/P (MAP) Pulse Ox O2 Delivery O2 Flow Rate FiO2 12/08/18 10:56 98.3 72 20 103/61 (75) 95 Room Air 98.3 Weight Weight [ ] I.O. Intake and Output Intake and Output 12/08/18 06:59 Intake Total 1250 ml Output Total 2050 ml Balance -800 ml Intake Oral 1250 ml Output Urine Total 2050 ml Labs Labs Laboratory Tests Test 12/07/18 16:05 12/08/18 04:40 Sodium Level 121 mmol/L (136-145) 122 mmol/L (136-145) White Blood Count 8.4 x10^3/uL (4.0-11.0) Red Blood Count 3.32 x10^6/uL (3.50-5.40) Hemoglobin 11.9 g/dL (12.0-15.5) Hematocrit 34.4 % (36.0-47.0) Mean Corpuscular Volume 104 fL (79-100) Mean Corpuscular Hemoglobin 36 pg (25-35) Mean Corpuscular Hemoglobin Concent 35 g/dL (31-37) Red Cell Distribution Width 13.8 % (11.5-14.5) Platelet Count 191 x10^3/uL (140-400) Neutrophils (%) (Auto) 83 % (31-73) Lymphocytes (%) (Auto) 6 % (24-48) Monocytes (%) (Auto) 11 % (0-9) Eosinophils (%) (Auto) 0 % (0-3) Basophils (%) (Auto) 1 % (0-3) Neutrophils # (Auto) 6.9 x10^3uL (1.8-7.7) Lymphocytes # (Auto) 0.5 x10^3/uL (1.0-4.8) Monocytes # (Auto) 0.9 x10^3/uL (0.0-1.1) Eosinophils # (Auto) 0.0 x10^3/uL (0.0-0.7) Basophils # (Auto) 0.1 x10^3/uL (0.0-0.2) Potassium Level 4.8 mmol/L (3.5-5.1) Chloride Level 91 mmol/L (98-107) Carbon Dioxide Level 19 mmol/L (21-32) Anion Gap 12 (6-14) Blood Urea Nitrogen 25 mg/dL (7-20) Creatinine 5.2 mg/dL (0.6-1.0) Estimated GFR (Cockcroft-Gault) 8.3 Glucose Level 117 mg/dL (70-99) Calcium Level 7.7 mg/dL (8.5-10.1) Magnesium Level 2.6 mg/dL (1.8-2.4) Micro Micro Microbiology 12/06/18 Urine Culture - Final, Complete 12/06/18 Urine Culture Result 1 (BOB) - Final, Complete Review of Systems Constitutional: yes: weakness, alert, oriented Ears/Nose/Throat: Yes: no symptom reported Eyes: Yes: no symptom reported Pulmonary: Yes no symptom reported Cardiovascular: Yes no symptom reported Gastrointestional: Yes: no symptom reported Genitourinary: Yes: no symptom reported Musculoskeletal: Yes: muscle stiffness Skin: Yes no symptom reported Psychiatric/Neurological: Yes: anxiety Endocrine: Yes: no symptom reported Hematologic/Lymphatic: Yes: no symptom reported Physical Exam General Appearance: no apparent distress Skin: warm, no edema, no erythema Respiratory: bilateral CTA Heart: S1S2, RRR Abdomen: soft, bowel sounds present Genitourinary: bladder flat Extremities: pulses present, no edema Neurology: alert, oriented, Ext weakness Assessment Assessment IMP SEVERE HYPONATREMIA ARCENIO-ETIOLOGY UNKNOWN-LAST NL LABS IN 2016-NONE SINCE THEN TILL LAST WK WHEN CR WAS 4.2 RECENT UTI WITH DIP STICK POS HEMATURIA AND PROTEINURIA HTN HX LOW MAG PLAN HYDRATION AVOID NEPHROTOXINS 3 % SALINE AGAIN URINE AND SERUM OSMO URINE LYTES CHECK TSH REPLACED MAG RENAL SONOGRAM-NEG FOR ACUTE FINDINGS SHE TOOK HER MOTHERS LEYLA-I/HCTZ FOR A FEW DAYS BUT NO EVIDENCE OF DEHYDRATION ON EXAM RENAL BIOPSY ORDERED FOR TISSUE DIAGNOSIS-COULD JUST BE ATN BUT WITH RECENT UTI UA DIFFICULT TO INTERPRET ALSO WILL ASK IR TO PLACE A TEMP HD CATHETER HD WILL START TOMORROW UPDATED PT AND SON AND THEY AGREE TO OUTLINED PLAN KATHLEEN MOBLEY MD Dec 08, 2018 12:43
[2018-12-08] MEDS ORDERED: SODIUM CHLORIDE 3 % 250 ML IV ONE (13:00)
[2018-12-08 14:23] VITALS: BP 101/51
--- NOTE | 2018-12-08 15:58 | NUR ---
SW following pt. Chart reviewed and discussed with RN. Pt will get a temporary cath tomorrow and start HD. No indication if this is acute or pt will need OP HD at this time. SW will continue to assess dc needs.
[2018-12-08] MEDS: LORazepam 0.5 MG TABLET PO PRN ×2 (16:28→23:41)
[2018-12-08] MEDS: IV NORMAL SALINE 1000ML BAG 1,000 ML IV SCH (16:29)
[2018-12-08 19:56] VITALS: BP 121/63
[2018-12-08] MEDS: SIMVASTATIN 20 MG TABLET PO SCH (20:44)
[2018-12-08 23:41] VITALS: BP 116/59
[2018-12-09] VITALS (10 sets, daily range): BP systolic 12–141; BP diastolic 58–83
[2018-12-09] MEDS: IV NORMAL SALINE 1000ML BAG 1,000 ML IV SCH ×3 (02:04→16:31)
[2018-12-09] MEDS: LEVOTHYROXINE 75 MCG TABLET PO SCH (05:20)
[2018-12-09] MEDS: ALBUTEROL SULFATE 2.5 MG/3 ML NEBU. NEB SCH ×2 (08:00→12:00)
[2018-12-09] MEDS: BUDESONIDE 0.5 MG/2 ML NEBU. NEB SCH (08:00)
[2018-12-09] MEDS: METOPROLOL TART IMMED RELEASE 50 MG TABLET. PO SCH ×2 (08:02→20:30)
[2018-12-09] MEDS: SENNOSIDES/DOCUSATE 8.6/50MG TABLET. PO SCH (08:02)
[2018-12-09] MEDS: LORazepam 0.5 MG TABLET PO PRN ×2 (08:03→20:28)
[2018-12-09 08:54] LABS: BASO % 1 % (0-3); EOS # 0.1 x10^3/uL (0.0-0.7); EOS % 1 % (0-3); HEMATOCRIT 35.4 % (36.0-47.0); HEMOGLOBIN 11.9 g/dL (12.0-15.5); LYMPH # 0.6 x10^3/uL (1.0-4.8); LYMPH % 9 % (24-48); MEAN CORPUSCULAR HEMOGLOBIN 35 pg (25-35); MEAN CORPUSCULAR HGB CONC 34 g/dL (31-37); MEAN CORPUSCULAR VOLUME 105 fL (79-100); MONO # 0.8 x10^3/uL (0.0-1.1); MONO % 11 % (0-9); NEUT # 5.6 x10^3uL (1.8-7.7); NEUT % 79 % (31-73); PLATELET COUNT 208 x10^3/uL (140-400); RED BLOOD COUNT 3.37 x10^6/uL (3.50-5.40); RED CELL DISTRIBUTION WIDTH 13.9 % (11.5-14.5); WHITE BLOOD COUNT 7.1 x10^3/uL (4.0-11.0)
[2018-12-09 09:20] LABS: CALCIUM 7.6 mg/dL (8.5-10.1); GFR 7.1; PHOSPHORUS 4.1 mg/dL (2.6-4.7); POTASSIUM 4.4 mmol/L (3.5-5.1)
[2018-12-09] MEDS ORDERED: MIDAZOLAM HCL/PF 2 MG/2 ML VIAL. ONE (09:46)
[2018-12-09] MEDS ORDERED: fentaNYL PF VIAL 100 MCG/2 ML VIAL ONE (09:47)
[2018-12-09] MEDS ORDERED: GELATIN SPONGE SIZE 12-7MM SPONGE. ONE (10:00)
[2018-12-09] MEDS ORDERED: LIDOCAINE WITH 8.4% SOD BICARB 3 ML DISP.SYRIN. ONE ×2 (10:00→10:09)
--- NOTE | 2018-12-09 10:14 | PDOC ---
SUBJECTIVE ROS No complaints- denies any N/V. No Orthostatic symptoms reports Good UOP since next day of admission She has many questions regarding HD OBJECTIVE Vital Signs Vital Signs Date Time Temp Pulse Resp B/P (MAP) Pulse Ox O2 Delivery O2 Flow Rate FiO2 12/09/18 08:02 71 111/58 12/09/18 07:09 98.1 18 93 Room Air 98.1 I & 0 Intake and Output 12/09/18 06:59 Intake Total 3780 ml Output Total 1200 ml Balance 2580 ml Intake Oral 1380 ml Other 2400 ml Output Urine Total 1200 ml # Voids 5 PHYSICAL EXAM Physical Exam General: NAD HEENT: OM moist Lungs: Clear to auscultation Heart: Regular rate, Normal S1, Normal S2 Abdomen: Soft, No tenderness Extremities: No LE edema Skin: No rash Neuro: Normal speech, Sensation intact - No Ordoñez DIAGNOSIS/ASSESSMENT Assessment & Plan ARCENIO- Etiology Unknown ? 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 Pt reports was on Lisinopril/HCTZ from 2008- 2013 , it was dced by her PCP, not sure of the reason Reports taking it for 5 days approx 2 weeks back on her own as ran out of BP meds Anuric post UTI and Cipro, now good UOP No improvement in Renal function,no Micr hematuria, Proteinuria +, WBC + Renal US unremarkable Scheduled for renal bx and Temp HD cath placement this am Severe Hyponatremia - Improving HD today Recent UTI - Received Cipro Hx of HTN - BP stable Discussed at great length with Pt and son at bedside COMMENT/RELEVANT DATA Meds Current Medications Medications (Trade) Dose Ordered Sig/Jayden Start Time Stop Time Status Last Admin Dose Admin Albuterol Sulfate (Ventolin Neb Soln) 2.5 mg RTQID 12/07/18 22:00 12/08/18 08:04 2.5 MG Budesonide (Pulmicort) 0.5 mg RTBID 12/07/18 22:00 12/08/18 19:48 0.5 MG Ceftriaxone Sodium (Rocephin) 1 gm 1X ONCE 12/06/18 23:45 12/06/18 23:46 DC 12/06/18 23:45 1 GM Fentanyl Citrate (Fentanyl 2ml Vial) 100 mcg STK-MED ONCE 12/09/18 09:47 12/09/18 09:48 DC Fluconazole (Diflucan) 100 mg 1X ONCE 12/06/18 23:45 12/06/18 23:46 DC 12/06/18 23:45 100 MG Gelatin (Gelfoam Size 12-7mm) 1 each STK-MED ONCE 12/09/18 10:00 12/09/18 10:01 DC Levothyroxine Sodium (Synthroid) 75 mcg DAILY06 12/07/18 06:00 12/08/18 06:03 75 MCG Lidocaine/Sodium Bicarbonate (Buffered Lidocaine 1%) 3 ml STK-MED ONCE 12/09/18 10:00 12/09/18 10:01 DC Lorazepam (Ativan) 0.5 mg PRN Q6HRS PRN 12/07/18 03:00 12/09/18 08:03 0.5 MG Magnesium Sulfate 50 ml @ 25 mls/hr 1X ONCE 12/07/18 14:15 12/07/18 16:14 DC 12/07/18 15:41 25 MLS/HR Metoprolol Tartrate (Lopressor) 50 mg BID 12/07/18 09:00 12/09/18 08:02 50 MG Midazolam HCl (Versed) 2 mg STK-MED ONCE 12/09/18 09:46 12/09/18 09:47 DC Non-Formulary Medication (Mometasone/ Formoterol (Dulera 100 Mcg/5 Mcg Inhaler)) 2 puff BID 12/08/18 09:00 UNV Ondansetron HCl (Zofran) 4 mg PRN Q8HRS PRN 12/07/18 00:30 12/08/18 00:29 DC 12/07/18 00:38 4 MG Senna/Docusate Sodium (Senna Plus) 1 tab DAILY 12/07/18 09:00 12/09/18 08:02 1 TAB Simvastatin (Zocor) 20 mg HS 12/07/18 21:00 12/08/18 20:44 20 MG Sodium Chloride 250 ml @ 30 mls/hr 1X ONCE 12/08/18 13:00 12/08/18 21:19 DC 12/08/18 16:29 30 MLS/HR Lab Laboratory Tests Test 12/09/18 08:03 White Blood Count 7.1 x10^3/uL (4.0-11.0) Red Blood Count 3.37 x10^6/uL (3.50-5.40) Hemoglobin 11.9 g/dL (12.0-15.5) Hematocrit 35.4 % (36.0-47.0) Mean Corpuscular Volume 105 fL (79-100) Mean Corpuscular Hemoglobin 35 pg (25-35) Mean Corpuscular Hemoglobin Concent 34 g/dL (31-37) Red Cell Distribution Width 13.9 % (11.5-14.5) Platelet Count 208 x10^3/uL (140-400) Neutrophils (%) (Auto) 79 % (31-73) Lymphocytes (%) (Auto) 9 % (24-48) Monocytes (%) (Auto) 11 % (0-9) Eosinophils (%) (Auto) 1 % (0-3) Basophils (%) (Auto) 1 % (0-3) Neutrophils # (Auto) 5.6 x10^3uL (1.8-7.7) Lymphocytes # (Auto) 0.6 x10^3/uL (1.0-4.8) Monocytes # (Auto) 0.8 x10^3/uL (0.0-1.1) Eosinophils # (Auto) 0.1 x10^3/uL (0.0-0.7) Basophils # (Auto) 0.0 x10^3/uL (0.0-0.2) Sodium Level 126 mmol/L (136-145) Potassium Level 4.4 mmol/L (3.5-5.1) Chloride Level 95 mmol/L (98-107) Carbon Dioxide Level 20 mmol/L (21-32) Anion Gap 11 (6-14) Blood Urea Nitrogen 26 mg/dL (7-20) Creatinine 6.0 mg/dL (0.6-1.0) Estimated GFR (Cockcroft-Gault) 7.1 Glucose Level 105 mg/dL (70-99) Calcium Level 7.6 mg/dL (8.5-10.1) Phosphorus Level 4.1 mg/dL (2.6-4.7) Results All relevant outside records, renal labs, imaging studies, telemetry/EKG's were reviewed. YANG FERREIRA MD Dec 09, 2018 10:14
[2018-12-09] MEDS ORDERED: fentaNYL PF VIAL 100 MCG/2 ML VIAL IV ONE (10:45)
[2018-12-09] MEDS ORDERED: LIDOCAINE WITH 8.4% SOD BICARB 3 ML DISP.SYRIN. IJ ONE (10:45)
[2018-12-09] MEDS ORDERED: MIDAZOLAM HCL/PF 2 MG/2 ML VIAL. IV ONE (10:45)
--- NOTE | 2018-12-09 10:46 | PDOC ---
PROGRESS NOTES Chief Complaint Chief Complaint Hyponatremia and acute renal failure Urinary retention UTI HLD HTN Hypothyroidism SVT History of Present Illness History of Present Illness Pt sitting up in bed, son at bedside Pt now reporting she was taking a combined ACEinhib/HCTZ medication for ~5days. Questions regarding dialysis and need for kidney biopsy addressed Discussed plans of care with son Denies any new complaints Vitals Vitals Vital Signs Date Time Temp Pulse Resp B/P (MAP) Pulse Ox O2 Delivery O2 Flow Rate FiO2 12/09/18 10:35 66 16 100 Nasal Cannula 2.0 12/09/18 08:02 111/58 12/09/18 07:09 98.1 98.1 Physical Exam General: Alert, Oriented X3, Cooperative, No acute distress Heart: Regular rate, Normal S1, Normal S2, No murmurs Lungs: Clear, Other (No crackles, wheezing or ronchi) Abdomen: Normal bowel sounds, Soft, No tenderness Extremities: No clubbing, No cyanosis, No edema Skin: No rashes, No breakdown, No significant lesion Labs LABS Laboratory Tests Test 12/09/18 08:03 White Blood Count 7.1 x10^3/uL (4.0-11.0) Red Blood Count 3.37 x10^6/uL (3.50-5.40) Hemoglobin 11.9 g/dL (12.0-15.5) Hematocrit 35.4 % (36.0-47.0) Mean Corpuscular Volume 105 fL (79-100) Mean Corpuscular Hemoglobin 35 pg (25-35) Mean Corpuscular Hemoglobin Concent 34 g/dL (31-37) Red Cell Distribution Width 13.9 % (11.5-14.5) Platelet Count 208 x10^3/uL (140-400) Neutrophils (%) (Auto) 79 % (31-73) Lymphocytes (%) (Auto) 9 % (24-48) Monocytes (%) (Auto) 11 % (0-9) Eosinophils (%) (Auto) 1 % (0-3) Basophils (%) (Auto) 1 % (0-3) Neutrophils # (Auto) 5.6 x10^3uL (1.8-7.7) Lymphocytes # (Auto) 0.6 x10^3/uL (1.0-4.8) Monocytes # (Auto) 0.8 x10^3/uL (0.0-1.1) Eosinophils # (Auto) 0.1 x10^3/uL (0.0-0.7) Basophils # (Auto) 0.0 x10^3/uL (0.0-0.2) Sodium Level 126 mmol/L (136-145) Potassium Level 4.4 mmol/L (3.5-5.1) Chloride Level 95 mmol/L (98-107) Carbon Dioxide Level 20 mmol/L (21-32) Anion Gap 11 (6-14) Blood Urea Nitrogen 26 mg/dL (7-20) Creatinine 6.0 mg/dL (0.6-1.0) Estimated GFR (Cockcroft-Gault) 7.1 Glucose Level 105 mg/dL (70-99) Calcium Level 7.6 mg/dL (8.5-10.1) Phosphorus Level 4.1 mg/dL (2.6-4.7) Review of Systems Review of Systems Denies any N/F, F/C, CP or SOA Assessment and Plan Assessmemt and Plan Assessment: Acute renal failure, Cr 6.0 from 5.2 yesterday Hyponatremia, 126 from 122 yesterday Hypomagnesemia, resolved Urinary retention UTI yest cystitis HLD HTN Hypothyroidism, on Synthroid, TSH 2.3 SVT Plan: HD planned for today Renal Biopsy planned Refractory hyponatremia, slowly improving following hypertonic saline and NS, appreciate Nephrology input Awaiting urine and serum osmolarity U/s revealed no significant renal abnormality NS @ 100/hr Recheck labs in am PT/OT Ordered Home meds, holding losartan Monitor I&O's Plan of care discussed with pt and son Problems Medical Problems: (1) Acute renal failure Status: Acute (2) Hypomagnesemia Status: Acute (3) Hyponatremia Status: Acute (4) UTI (urinary tract infection) Status: Acute (5) Yeast cystitis Status: Acute Comment Review of Relevant I have reviewed the following items timmy (where applicable) has been applied. Labs Laboratory Tests Test 12/07/18 16:05 12/08/18 04:40 12/09/18 08:03 Sodium Level 121 mmol/L (136-145) 122 mmol/L (136-145) 126 mmol/L (136-145) White Blood Count 8.4 x10^3/uL (4.0-11.0) 7.1 x10^3/uL (4.0-11.0) Red Blood Count 3.32 x10^6/uL (3.50-5.40) 3.37 x10^6/uL (3.50-5.40) Hemoglobin 11.9 g/dL (12.0-15.5) 11.9 g/dL (12.0-15.5) Hematocrit 34.4 % (36.0-47.0) 35.4 % (36.0-47.0) Mean Corpuscular Volume 104 fL (79-100) 105 fL (79-100) Mean Corpuscular Hemoglobin 36 pg (25-35) 35 pg (25-35) Mean Corpuscular Hemoglobin Concent 35 g/dL (31-37) 34 g/dL (31-37) Red Cell Distribution Width 13.8 % (11.5-14.5) 13.9 % (11.5-14.5) Platelet Count 191 x10^3/uL (140-400) 208 x10^3/uL (140-400) Neutrophils (%) (Auto) 83 % (31-73) 79 % (31-73) Lymphocytes (%) (Auto) 6 % (24-48) 9 % (24-48) Monocytes (%) (Auto) 11 % (0-9) 11 % (0-9) Eosinophils (%) (Auto) 0 % (0-3) 1 % (0-3) Basophils (%) (Auto) 1 % (0-3) 1 % (0-3) Neutrophils # (Auto) 6.9 x10^3uL (1.8-7.7) 5.6 x10^3uL (1.8-7.7) Lymphocytes # (Auto) 0.5 x10^3/uL (1.0-4.8) 0.6 x10^3/uL (1.0-4.8) Monocytes # (Auto) 0.9 x10^3/uL (0.0-1.1) 0.8 x10^3/uL (0.0-1.1) Eosinophils # (Auto) 0.0 x10^3/uL (0.0-0.7) 0.1 x10^3/uL (0.0-0.7) Basophils # (Auto) 0.1 x10^3/uL (0.0-0.2) 0.0 x10^3/uL (0.0-0.2) Prothrombin Time 14.0 SEC (11.7-14.0) Prothromb Time International Ratio 1.1 (0.8-1.1) Potassium Level 4.8 mmol/L (3.5-5.1) 4.4 mmol/L (3.5-5.1) Chloride Level 91 mmol/L (98-107) 95 mmol/L (98-107) Carbon Dioxide Level 19 mmol/L (21-32) 20 mmol/L (21-32) Anion Gap 12 (6-14) 11 (6-14) Blood Urea Nitrogen 25 mg/dL (7-20) 26 mg/dL (7-20) Creatinine 5.2 mg/dL (0.6-1.0) 6.0 mg/dL (0.6-1.0) Estimated GFR (Cockcroft-Gault) 8.3 7.1 Glucose Level 117 mg/dL (70-99) 105 mg/dL (70-99) Calcium Level 7.7 mg/dL (8.5-10.1) 7.6 mg/dL (8.5-10.1) Magnesium Level 2.6 mg/dL (1.8-2.4) Phosphorus Level 4.1 mg/dL (2.6-4.7) Laboratory Tests Test 12/09/18 08:03 White Blood Count 7.1 x10^3/uL (4.0-11.0) Red Blood Count 3.37 x10^6/uL (3.50-5.40) Hemoglobin 11.9 g/dL (12.0-15.5) Hematocrit 35.4 % (36.0-47.0) Mean Corpuscular Volume 105 fL (79-100) Mean Corpuscular Hemoglobin 35 pg (25-35) Mean Corpuscular Hemoglobin Concent 34 g/dL (31-37) Red Cell Distribution Width 13.9 % (11.5-14.5) Platelet Count 208 x10^3/uL (140-400) Neutrophils (%) (Auto) 79 % (31-73) Lymphocytes (%) (Auto) 9 % (24-48) Monocytes (%) (Auto) 11 % (0-9) Eosinophils (%) (Auto) 1 % (0-3) Basophils (%) (Auto) 1 % (0-3) Neutrophils # (Auto) 5.6 x10^3uL (1.8-7.7) Lymphocytes # (Auto) 0.6 x10^3/uL (1.0-4.8) Monocytes # (Auto) 0.8 x10^3/uL (0.0-1.1) Eosinophils # (Auto) 0.1 x10^3/uL (0.0-0.7) Basophils # (Auto) 0.0 x10^3/uL (0.0-0.2) Sodium Level 126 mmol/L (136-145) Potassium Level 4.4 mmol/L (3.5-5.1) Chloride Level 95 mmol/L (98-107) Carbon Dioxide Level 20 mmol/L (21-32) Anion Gap 11 (6-14) Blood Urea Nitrogen 26 mg/dL (7-20) Creatinine 6.0 mg/dL (0.6-1.0) Estimated GFR (Cockcroft-Gault) 7.1 Glucose Level 105 mg/dL (70-99) Calcium Level 7.6 mg/dL (8.5-10.1) Phosphorus Level 4.1 mg/dL (2.6-4.7) Microbiology 12/06/18 Urine Culture - Final, Complete 12/06/18 Urine Culture Result 1 (BOB) - Final, Complete Medications Current Medications Sodium Chloride 1,000 ml @ 1,000 mls/hr 1X ONCE IV Last administered on at 22:49; Start 12/06/18 at 23:00; Stop 12/06/18 at 23:59; Status DC Magnesium Sulfate 50 ml @ 25 mls/hr 1X ONCE IV Last administered on 12/06/18at 23:45; Start 12/06/18 at 23:45; Stop 12/07/18 at 01:44; Status DC Ceftriaxone Sodium (Rocephin) 1 gm 1X ONCE IVP Last administered on 12/06/18at 23:45; Start 12/06/18 at 23:45; Stop 12/06/18 at 23:46; Status DC Fluconazole (Diflucan) 100 mg 1X ONCE PO Last administered on 12/06/18at 23:45; Start 12/06/18 at 23:45; Stop 12/06/18 at 23:46; Status DC Ondansetron HCl (Zofran) 4 mg PRN Q8HRS PRN IV NAUSEA/VOMITING 1ST CHOICE Last administered on 12/07/18at 00:38; Start 12/07/18 at 00:30; Stop 12/08/18 at 00:29; Status DC Sodium Chloride 1,000 ml @ 100 mls/hr 1X ONCE IV Last administered on at 02:05; Start 12/07/18 at 01:00; Stop 12/07/18 at 10:59; Status DC Levothyroxine Sodium (Synthroid) 75 mcg DAILY06 PO Last administered on 06:03; Start 12/07/18 at 06:00 Metoprolol Tartrate (Lopressor) 50 mg BID PO Last administered on 12/09/18 08: 02; Start 12/07/18 at 09:00 Senna/Docusate Sodium (Senna Plus) 1 tab DAILY PO Last administered on 08:02; Start 12/07/18 at 09:00 Simvastatin (Zocor) 20 mg HS PO Last administered on 12/08/18 20:44; Start 12/07 at 21:00 Lorazepam (Ativan) 0.5 mg PRN Q6HRS PRN PO ANXIETY / AGITATION Last administered on 12/09/18 08:03; Start 12/07/18 at 03:00 Sodium Chloride 1,000 ml @ 100 mls/hr Q10H IV Last administered on 12/09/18 08 :03; Start 12/07/18 at 06:00 Sodium Chloride 100 ml @ 30 mls/hr 1X ONCE IV Last administered on 12/07/18at 10:25; Start 12/07/18 at 09:00; Stop 12/07/18 at 12:19; Status DC Magnesium Sulfate 50 ml @ 25 mls/hr 1X ONCE IV Last administered on 12/07/18at 15:41; Start 12/07/18 at 14:15; Stop 12/07/18 at 16:14; Status DC Sodium Chloride 300 ml @ 0 mls/hr 1X ONCE IV Last administered on 12/07/18at 19: 12; Start 12/07/18 at 17:00; Stop 12/07/18 at 17:04; Status DC Non-Formulary Medication (Mometasone/ Formoterol (Dulera 100 Mcg/5 Mcg Inhaler) ) 2 puff BID IH ; Start 12/08/18 at 09:00; Status UNV Albuterol Sulfate (Ventolin Neb Soln) 2.5 mg RTQID NEB Last administered on 12/08at 08:04; Start 12/07/18 at 22:00 Budesonide (Pulmicort) 0.5 mg RTBID NEB Last administered on 12/08/18at 19:48; Start 12/07/18 at 22:00 Sodium Chloride 250 ml @ 30 mls/hr 1X ONCE IV Last administered on 12/08/18at 16:29; Start 12/08/18 at 13:00; Stop 12/08/18 at 21:19; Status DC Midazolam HCl (Versed) 2 mg STK-MED ONCE .ROUTE ; Start 12/09/18 at 09:46; Stop 12/09/18 at 09:47; Status DC Fentanyl Citrate (Fentanyl 2ml Vial) 100 mcg STK-MED ONCE .ROUTE ; Start at 09:47; Stop 12/09/18 at 09:48; Status DC Lidocaine/Sodium Bicarbonate (Buffered Lidocaine 1%) 3 ml STK-MED ONCE .ROUTE ; Start 12/09/18 at 10:00; Stop 12/09/18 at 10:01; Status DC Gelatin (Gelfoam Size 12-7mm) 1 each STK-MED ONCE .ROUTE ; Start 12/09/18 at 10: 00; Stop 12/09/18 at 10:01; Status DC Lidocaine/Sodium Bicarbonate (Buffered Lidocaine 1%) 3 ml STK-MED ONCE .ROUTE ; Start 12/09/18 at 10:09; Stop 12/09/18 at 10:10; Status DC Lidocaine/Sodium Bicarbonate (Buffered Lidocaine 1%) 3 ml 1X ONCE IJ ; Start at 10:45; Stop 12/09/18 at 10:46 Midazolam HCl (Versed) 2 mg 1X ONCE IV ; Start 12/09/18 at 10:45; Stop 12/09/18 at 10:46 Fentanyl Citrate (Fentanyl 2ml Vial) 100 mcg 1X ONCE IV ; Start 12/09/18 at 10: 45; Stop 12/09/18 at 10:46 Active Scripts Active Reported Dulera 100 Mcg/5 Mcg Inhaler (Mometasone/Formoterol) 13 Gm Hfa.aer.ad 2 Puff IH BID Metoprolol Tartrate 50 Mg Tablet 50 Mg PO BID Simvastatin 20 Mg Tablet 20 Mg PO HS Levothyroxine Sodium 75 Mcg Tablet 75 Mcg PO DAILYAC Senokot-S Tablet (Sennosides/Docusate Sodium) 1 Each Tablet 1 Each PO DAILY Losartan Potassium 50 Mg Tablet 50 Mg PO DAILY Vitals/I & O Vital Sign - Last 24 Hours 12/08/18 12/08/18 12/08/18 12/08/18 10:56 14:23 19:51 19:56 Temp 98.3 98.4 97.9 98.3 98.4 97.9 Pulse 72 63 66 Resp 20 18 16 B/P (MAP) 103/61 (75) 101/51 (68) 121/63 (82) Pulse Ox 95 94 96 O2 Delivery Room Air Room Air Room Air Room Air 12/08/18 12/08/18 12/08/18 12/09/18 20:00 20:44 23:41 03:35 Temp 97.9 97.8 97.9 97.8 Pulse 66 75 76 Resp 16 16 B/P (MAP) 123/63 116/59 (78) 119/62 (81) Pulse Ox 96 94 O2 Delivery Room Air Room Air Room Air 12/09/18 12/09/18 12/09/18 12/09/18 07:09 08:02 10:30 10:35 Temp 98.1 98.1 Pulse 71 71 67 66 Resp 16 16 B/P (MAP) 111/58 (75) 111/58 Pulse Ox 93 100 100 O2 Delivery Room Air Nasal Cannula Nasal Cannula O2 Flow Rate 2.0 2.0 Intake and Output 12/08/18 12/08/18 12/09/18 15:00 23:00 07:00 Intake Total 880 ml 2900 ml 0 ml Output Total 700 ml 500 ml Balance 880 ml 2200 ml -500 ml AMANDA IRBY K III DO Dec 09, 2018 10:46
[2018-12-09] MEDS ORDERED: IV NORMAL SALINE 1000ML BAG 1,000 ML IV PRN ×2 (11:00)
[2018-12-09] MEDS ORDERED: 0.9 % SODIUM CHLORIDE 10 ML DISP.SYRIN. IV PRN ×2 (11:00)
--- NOTE | 2018-12-09 11:17 | NUR ---
Patient to for renal biopsy and temp HD catheter placement. Patient had left renal biopsy with sedation, no issue or concerns tolerated well, vitals stable. Temp HD catheter to right IJ placed with no issues or concerns, patient tolerated well and vitals stable. Report called to 6th floor charge nurse and MICHAEL Avendano in dialysis. Patient transported to dialysis from .
--- NOTE | 2018-12-09 13:21 | RAD ---
Procedure: Ultrasound and fluoroscopically guided placement of right internal jugular central venous catheter12/09/2018 1:16 PM Clinical Indication: Renal Failure Discussion: The risks and benefits of the procedure were discussed the patient and/or their employee's representative. Informed consent was obtained. A timeout procedure was performed. All elements of maximal sterile barrier technique including the use of a cap, mask, sterile gown, sterile gloves, large sterile sheet, appropriate hand hygiene, and 2% chlorhexidine for cutaneous antisepsis (or acceptable alternative antiseptic per current guidelines) were followed for this procedure. The patient was prepped and draped in the usual sterile fashion. Ultrasound interrogation of the right neck revealed patency and compressibility of the right internal jugular vein. A 21-gauge micropuncture was then used to gain access to this vein under ultrasound guidance. A hard copy ultrasound image was recorded. A guidewire was advanced centrally. 5 Lao sheath was placed. Over a wire following dilatation, a dual-lumen temporary dialysis catheter was advanced centrally, and placed under fluoroscopy, such the tip is at the cavoatrial junction. Catheter was found to flush and aspirate normally. Catheter secured in place and a sterile dressing was applied. No immediate complications were identified. Total fluoroscopy time: 0.5 Minutes dose area product: 1 Gycm2 Anesthesia: Local only Impression: Successful ultrasound-guided placement of right internal jugular triple-lumen central venous catheter
--- NOTE | 2018-12-09 13:23 | RAD ---
Nontargeted Ultrasound-guided biopsy, left kidney 12/09/2018 Indication: Acute renal failure, unknown etiology Discussion: The risks and benefits of the procedure were discussed the patient. Informed consent was obtained. Timeout procedure was performed. The patient was placed in the prone position. Ultrasound evaluation demonstrates adequate visualization of the left kidney. 1% lidocaine was administered for local anesthesia. Under continuous ultrasound guidance a 17-gauge needle was advanced into the posterior inferior renal cortex. 2 x 18-gauge core biopsy samples were obtained. Gelfoam embolization of the biopsy tract was performed as the guiding needle was removed. Manual pressure was held. Repeat ultrasound demonstrates no significant hemorrhage or other immediate complication. The patient tolerated the procedure well. The procedures performed under conscious sedation including continuous cardiopulmonary monitoring via a dedicated sedation nurse. [id number] sedation time: 15 minutes Impression: Ultrasound-guided left renal biopsy
[2018-12-09] MEDS ORDERED: DIALYSIS PATIENT. MC PRN ×2 (13:30)
[2018-12-09] MEDS: DULERA INH SCH (20:27)
[2018-12-09] MEDS: SIMVASTATIN 20 MG TABLET PO SCH (20:28)
[2018-12-10 03:00] VITALS: BP 134/76
[2018-12-10] MEDS: LEVOTHYROXINE 75 MCG TABLET PO SCH (05:17)
[2018-12-10] MEDS: IV NORMAL SALINE 1000ML BAG 1,000 ML IV SCH ×3 (05:18→20:55)
[2018-12-10 07:00] VITALS: BP 125/58
[2018-12-10 07:08] LABS: BASO % 1 % (0-3); EOS # 0.1 x10^3/uL (0.0-0.7); EOS % 1 % (0-3); HEMATOCRIT 34.7 % (36.0-47.0); LYMPH # 0.9 x10^3/uL (1.0-4.8); LYMPH % 13 % (24-48); MEAN CORPUSCULAR HEMOGLOBIN 36 pg (25-35); MEAN CORPUSCULAR HGB CONC 35 g/dL (31-37); MEAN CORPUSCULAR VOLUME 104 fL (79-100); MONO # 0.9 x10^3/uL (0.0-1.1); MONO % 13 % (0-9); NEUT # 4.9 x10^3uL (1.8-7.7); NEUT % 72 % (31-73); PLATELET COUNT 193 x10^3/uL (140-400); RED BLOOD COUNT 3.34 x10^6/uL (3.50-5.40); WHITE BLOOD COUNT 6.8 x10^3/uL (4.0-11.0)
[2018-12-10 08:21] LABS: CALCIUM 7.4 mg/dL (8.5-10.1); CREATININE 3.8 mg/dL (0.6-1.0); POTASSIUM 3.9 mmol/L (3.5-5.1)
[2018-12-10] MEDS ORDERED: IV NORMAL SALINE 1000ML BAG 1,000 ML IV PRN ×2 (08:39)
[2018-12-10] MEDS ORDERED: DIALYSIS PATIENT. MC PRN (08:45)
[2018-12-10] MEDS ORDERED: diphenhydrAMINE 50 MG/ML VIAL IV PRN ×2 (08:45)
--- NOTE | 2018-12-10 11:16 | PDOC ---
PROGRESS NOTES Chief Complaint Chief Complaint Hyponatremia and acute renal failure Urinary retention UTI HLD HTN Hypothyroidism SVT History of Present Illness History of Present Illness Pt sitting upright in bed on Hemodialysis Answered questions regarding need for HD Discussed plans of care with nursing Pt reports she took a combined ACEinhib/HCTZ medication for ~5days. Denies any new complaints Vitals Vitals Vital Signs Date Time Temp Pulse Resp B/P (MAP) Pulse Ox O2 Delivery O2 Flow Rate FiO2 12/10/18 08:00 Room Air 2.0 12/10/18 07:00 97.6 69 16 125/58 (80) 97 97.6 Physical Exam General: Alert, Oriented X3, Cooperative, No acute distress, Other (Flat affect ) Heart: Regular rate, Normal S1, Normal S2, No murmurs Lungs: Clear, Other (No crackles, wheezing or ronchi) Abdomen: Normal bowel sounds, Soft, No tenderness Extremities: No clubbing, No cyanosis, No edema Skin: No rashes, No breakdown, No significant lesion, Other (R IJ Cath ) Labs LABS Laboratory Tests Test 12/10/18 06:58 White Blood Count 6.8 x10^3/uL (4.0-11.0) Red Blood Count 3.34 x10^6/uL (3.50-5.40) Hemoglobin 12.0 g/dL (12.0-15.5) Hematocrit 34.7 % (36.0-47.0) Mean Corpuscular Volume 104 fL (79-100) Mean Corpuscular Hemoglobin 36 pg (25-35) Mean Corpuscular Hemoglobin Concent 35 g/dL (31-37) Red Cell Distribution Width 14.0 % (11.5-14.5) Platelet Count 193 x10^3/uL (140-400) Neutrophils (%) (Auto) 72 % (31-73) Lymphocytes (%) (Auto) 13 % (24-48) Monocytes (%) (Auto) 13 % (0-9) Eosinophils (%) (Auto) 1 % (0-3) Basophils (%) (Auto) 1 % (0-3) Neutrophils # (Auto) 4.9 x10^3uL (1.8-7.7) Lymphocytes # (Auto) 0.9 x10^3/uL (1.0-4.8) Monocytes # (Auto) 0.9 x10^3/uL (0.0-1.1) Eosinophils # (Auto) 0.1 x10^3/uL (0.0-0.7) Basophils # (Auto) 0.0 x10^3/uL (0.0-0.2) Sodium Level 133 mmol/L (136-145) Potassium Level 3.9 mmol/L (3.5-5.1) Chloride Level 98 mmol/L (98-107) Carbon Dioxide Level 26 mmol/L (21-32) Anion Gap 9 (6-14) Blood Urea Nitrogen 13 mg/dL (7-20) Creatinine 3.8 mg/dL (0.6-1.0) Estimated GFR (Cockcroft-Gault) 12.0 Glucose Level 94 mg/dL (70-99) Calcium Level 7.4 mg/dL (8.5-10.1) Review of Systems Review of Systems Denies any F/C, CP or SOA Assessment and Plan Assessmemt and Plan Assessment: Acute renal failure, Cr improving, 3.8 today Hyponatremia, improving 133 from 126 Hypomagnesemia, resolved Urinary retention UTI yest cystitis HLD HTN Hypothyroidism, on Synthroid, TSH 2.3 SVT Plan: R IJ placed for HD, currently receiving HD Awaiting results of Renal Biopsy Refractory hyponatremia, slowly improving following hypertonic saline and NS, appreciate Nephrology input Awaiting urine and serum osmolarity U/s revealed no significant renal abnormality NS @ 100/hr Recheck labs in am PT/OT Ordered Home meds, holding losartan Monitor I&O's Problems Medical Problems: (1) Acute renal failure Status: Acute (2) Hypomagnesemia Status: Acute (3) Hyponatremia Status: Acute (4) UTI (urinary tract infection) Status: Acute (5) Yeast cystitis Status: Acute Comment Review of Relevant I have reviewed the following items timmy (where applicable) has been applied. Labs Laboratory Tests Test 12/09/18 08:03 12/10/18 06:58 White Blood Count 7.1 x10^3/uL (4.0-11.0) 6.8 x10^3/uL (4.0-11.0) Red Blood Count 3.37 x10^6/uL (3.50-5.40) 3.34 x10^6/uL (3.50-5.40) Hemoglobin 11.9 g/dL (12.0-15.5) 12.0 g/dL (12.0-15.5) Hematocrit 35.4 % (36.0-47.0) 34.7 % (36.0-47.0) Mean Corpuscular Volume 105 fL (79-100) 104 fL (79-100) Mean Corpuscular Hemoglobin 35 pg (25-35) 36 pg (25-35) Mean Corpuscular Hemoglobin Concent 34 g/dL (31-37) 35 g/dL (31-37) Red Cell Distribution Width 13.9 % (11.5-14.5) 14.0 % (11.5-14.5) Platelet Count 208 x10^3/uL (140-400) 193 x10^3/uL (140-400) Neutrophils (%) (Auto) 79 % (31-73) 72 % (31-73) Lymphocytes (%) (Auto) 9 % (24-48) 13 % (24-48) Monocytes (%) (Auto) 11 % (0-9) 13 % (0-9) Eosinophils (%) (Auto) 1 % (0-3) 1 % (0-3) Basophils (%) (Auto) 1 % (0-3) 1 % (0-3) Neutrophils # (Auto) 5.6 x10^3uL (1.8-7.7) 4.9 x10^3uL (1.8-7.7) Lymphocytes # (Auto) 0.6 x10^3/uL (1.0-4.8) 0.9 x10^3/uL (1.0-4.8) Monocytes # (Auto) 0.8 x10^3/uL (0.0-1.1) 0.9 x10^3/uL (0.0-1.1) Eosinophils # (Auto) 0.1 x10^3/uL (0.0-0.7) 0.1 x10^3/uL (0.0-0.7) Basophils # (Auto) 0.0 x10^3/uL (0.0-0.2) 0.0 x10^3/uL (0.0-0.2) Sodium Level 126 mmol/L (136-145) 133 mmol/L (136-145) Potassium Level 4.4 mmol/L (3.5-5.1) 3.9 mmol/L (3.5-5.1) Chloride Level 95 mmol/L (98-107) 98 mmol/L (98-107) Carbon Dioxide Level 20 mmol/L (21-32) 26 mmol/L (21-32) Anion Gap 11 (6-14) 9 (6-14) Blood Urea Nitrogen 26 mg/dL (7-20) 13 mg/dL (7-20) Creatinine 6.0 mg/dL (0.6-1.0) 3.8 mg/dL (0.6-1.0) Estimated GFR (Cockcroft-Gault) 7.1 12.0 Glucose Level 105 mg/dL (70-99) 94 mg/dL (70-99) Calcium Level 7.6 mg/dL (8.5-10.1) 7.4 mg/dL (8.5-10.1) Phosphorus Level 4.1 mg/dL (2.6-4.7) Hepatitis B Surface Antigen Nonreactive (Nonreactive) Laboratory Tests Test 12/10/18 06:58 White Blood Count 6.8 x10^3/uL (4.0-11.0) Red Blood Count 3.34 x10^6/uL (3.50-5.40) Hemoglobin 12.0 g/dL (12.0-15.5) Hematocrit 34.7 % (36.0-47.0) Mean Corpuscular Volume 104 fL (79-100) Mean Corpuscular Hemoglobin 36 pg (25-35) Mean Corpuscular Hemoglobin Concent 35 g/dL (31-37) Red Cell Distribution Width 14.0 % (11.5-14.5) Platelet Count 193 x10^3/uL (140-400) Neutrophils (%) (Auto) 72 % (31-73) Lymphocytes (%) (Auto) 13 % (24-48) Monocytes (%) (Auto) 13 % (0-9) Eosinophils (%) (Auto) 1 % (0-3) Basophils (%) (Auto) 1 % (0-3) Neutrophils # (Auto) 4.9 x10^3uL (1.8-7.7) Lymphocytes # (Auto) 0.9 x10^3/uL (1.0-4.8) Monocytes # (Auto) 0.9 x10^3/uL (0.0-1.1) Eosinophils # (Auto) 0.1 x10^3/uL (0.0-0.7) Basophils # (Auto) 0.0 x10^3/uL (0.0-0.2) Sodium Level 133 mmol/L (136-145) Potassium Level 3.9 mmol/L (3.5-5.1) Chloride Level 98 mmol/L (98-107) Carbon Dioxide Level 26 mmol/L (21-32) Anion Gap 9 (6-14) Blood Urea Nitrogen 13 mg/dL (7-20) Creatinine 3.8 mg/dL (0.6-1.0) Estimated GFR (Cockcroft-Gault) 12.0 Glucose Level 94 mg/dL (70-99) Calcium Level 7.4 mg/dL (8.5-10.1) Microbiology 12/06/18 Urine Culture - Final, Complete 12/06/18 Urine Culture Result 1 (BOB) - Final, Complete Medications Current Medications Sodium Chloride 1,000 ml @ 1,000 mls/hr 1X ONCE IV Last administered on at 22:49; Start 12/06/18 at 23:00; Stop 12/06/18 at 23:59; Status DC Magnesium Sulfate 50 ml @ 25 mls/hr 1X ONCE IV Last administered on 12/06/18at 23:45; Start 12/06/18 at 23:45; Stop 12/07/18 at 01:44; Status DC Ceftriaxone Sodium (Rocephin) 1 gm 1X ONCE IVP Last administered on 12/06/18at 23:45; Start 12/06/18 at 23:45; Stop 12/06/18 at 23:46; Status DC Fluconazole (Diflucan) 100 mg 1X ONCE PO Last administered on 12/06/18at 23:45; Start 12/06/18 at 23:45; Stop 12/06/18 at 23:46; Status DC Ondansetron HCl (Zofran) 4 mg PRN Q8HRS PRN IV NAUSEA/VOMITING 1ST CHOICE Last administered on 12/07/18at 00:38; Start 12/07/18 at 00:30; Stop 12/08/18 at 00:29; Status DC Sodium Chloride 1,000 ml @ 100 mls/hr 1X ONCE IV Last administered on at 02:05; Start 12/07/18 at 01:00; Stop 12/07/18 at 10:59; Status DC Levothyroxine Sodium (Synthroid) 75 mcg DAILY06 PO Last administered on 05:17; Start 12/07/18 at 06:00 Metoprolol Tartrate (Lopressor) 50 mg BID PO Last administered on 12/09/18 20: 30; Start 12/07/18 at 09:00 Senna/Docusate Sodium (Senna Plus) 1 tab DAILY PO Last administered on 08:02; Start 12/07/18 at 09:00 Simvastatin (Zocor) 20 mg HS PO Last administered on 12/09/18 20:28; Start 12/07 at 21:00 Lorazepam (Ativan) 0.5 mg PRN Q6HRS PRN PO ANXIETY / AGITATION Last administered on 12/09/18 20:28; Start 12/07/18 at 03:00 Sodium Chloride 1,000 ml @ 100 mls/hr Q10H IV Last administered on 12/10/18 05 :18; Start 12/07/18 at 06:00 Sodium Chloride 100 ml @ 30 mls/hr 1X ONCE IV Last administered on 12/07/18 10:25; Start 12/07/18 at 09:00; Stop 12/07/18 at 12:19; Status DC Magnesium Sulfate 50 ml @ 25 mls/hr 1X ONCE IV Last administered on 12/07/18at 15:41; Start 12/07/18 at 14:15; Stop 12/07/18 at 16:14; Status DC Sodium Chloride 300 ml @ 0 mls/hr 1X ONCE IV Last administered on 12/07/18 19: 12; Start 12/07/18 at 17:00; Stop 12/07/18 at 17:04; Status DC Non-Formulary Medication (Mometasone/ Formoterol (Dulera 100 Mcg/5 Mcg Inhaler) ) 2 puff BID IH ; Start 12/08/18 at 09:00; Status UNV Albuterol Sulfate (Ventolin Neb Soln) 2.5 mg RTQID NEB Last administered on 12/08at 08:04; Start 12/07/18 at 22:00; Stop 12/09/18 at 14:23; Status DC Budesonide (Pulmicort) 0.5 mg RTBID NEB Last administered on 12/08/18at 19:48; Start 12/07/18 at 22:00; Stop 12/09/18 at 14:23; Status DC Sodium Chloride 250 ml @ 30 mls/hr 1X ONCE IV Last administered on 12/08/18at 16:29; Start 12/08/18 at 13:00; Stop 12/08/18 at 21:19; Status DC Midazolam HCl (Versed) 2 mg STK-MED ONCE .ROUTE ; Start 12/09/18 at 09:46; Stop 12/09/18 at 09:47; Status DC Fentanyl Citrate (Fentanyl 2ml Vial) 100 mcg STK-MED ONCE .ROUTE ; Start at 09:47; Stop 12/09/18 at 09:48; Status DC Lidocaine/Sodium Bicarbonate (Buffered Lidocaine 1%) 3 ml STK-MED ONCE .ROUTE ; Start 12/09/18 at 10:00; Stop 12/09/18 at 10:01; Status DC Gelatin (Gelfoam Size 12-7mm) 1 each STK-MED ONCE .ROUTE ; Start 12/09/18 at 10: 00; Stop 12/09/18 at 10:01; Status DC Lidocaine/Sodium Bicarbonate (Buffered Lidocaine 1%) 3 ml STK-MED ONCE .ROUTE ; Start 12/09/18 at 10:09; Stop 12/09/18 at 10:10; Status DC Lidocaine/Sodium Bicarbonate (Buffered Lidocaine 1%) 3 ml 1X ONCE IJ Last administered on 12/09/18at 10:44; Start 12/09/18 at 10:45; Stop 12/09/18 at 10:46; Status DC Midazolam HCl (Versed) 2 mg 1X ONCE IV Last administered on 12/09/18at 10:44; Start 12/09/18 at 10:45; Stop 12/09/18 at 10:46; Status DC Fentanyl Citrate (Fentanyl 2ml Vial) 100 mcg 1X ONCE IV Last administered on at 10:44; Start 12/09/18 at 10:45; Stop 12/09/18 at 10:46; Status DC Sodium Chloride 1,000 ml @ 1,000 mls/hr Q1H PRN IV hypotension; Start 12/09/18 at 11:00; Stop 12/09/18 at 16:59; Status DC Sodium Chloride (Normal Saline Flush) 10 ml 1X PRN PRN IV AP catheter pack; Start 12/09/18 at 11:00; Stop 12/10/18 at 10:59; Status DC Sodium Chloride (Normal Saline Flush) 10 ml 1X PRN PRN IV LEATHER DRIER catheter pack; Start 12/09/18 at 11:00; Stop 12/10/18 at 10:59; Status DC Sodium Chloride 1,000 ml @ 400 mls/hr Q2H30M PRN IV PATENCY; Start 12/09/18 at 11:00; Stop 12/09/18 at 22:59; Status DC Info (PHARMACY MONITORING -- do not chart) 1 each PRN DAILY PRN MC SEE COMMENTS ; Start 12/09/18 at 13:30 Info (PHARMACY MONITORING -- do not chart) 1 each PRN DAILY PRN MC SEE COMMENTS ; Start 12/09/18 at 13:30; Status UNV Non-Formulary Medication 1 ea BID INH Last administered on 12/09/18at 20:27; Start 12/09/18 at 21:00 Sodium Chloride 1,000 ml @ 1,000 mls/hr Q1H PRN IV hypotension; Start 12/10/18 at 08:39; Stop 12/10/18 at 14:38 Diphenhydramine HCl (Benadryl) 25 mg 1X PRN PRN IV ITCHING; Start 12/10/18 at 08 :45; Stop 12/11/18 at 08:44 Diphenhydramine HCl (Benadryl) 25 mg 1X PRN PRN IV ITCHING; Start 12/10/18 at 08 :45; Stop 12/11/18 at 08:44 Sodium Chloride 1,000 ml @ 400 mls/hr Q2H30M PRN IV PATENCY; Start 12/10/18 at 08:39; Stop 12/10/18 at 20:38 Info (PHARMACY MONITORING -- do not chart) 1 each PRN DAILY PRN MC SEE COMMENTS ; Start 12/10/18 at 08:45 Active Scripts Active Reported Dulera 100 Mcg/5 Mcg Inhaler (Mometasone/Formoterol) 13 Gm Hfa.aer.ad 2 Puff IH BID Metoprolol Tartrate 50 Mg Tablet 50 Mg PO BID Simvastatin 20 Mg Tablet 20 Mg PO HS Levothyroxine Sodium 75 Mcg Tablet 75 Mcg PO DAILYAC Senokot-S Tablet (Sennosides/Docusate Sodium) 1 Each Tablet 1 Each PO DAILY Losartan Potassium 50 Mg Tablet 50 Mg PO DAILY Vitals/I & O Vital Sign - Last 24 Hours 12/09/18 12/09/18 12/09/18 12/09/18 11:15 19:00 20:00 20:30 Temp 97.6 97.6 Pulse 66 66 66 Resp 14 18 B/P (MAP) 141/70 (93) 141/66 Pulse Ox 96 97 O2 Delivery Room Air Room Air Room Air O2 Flow Rate 2.0 12/09/18 12/10/18 12/10/18 12/10/18 23:00 03:00 07:00 08:00 Temp 97.8 97.7 97.6 97.8 97.7 97.6 Pulse 72 75 69 Resp 18 18 16 B/P (MAP) 132/69 (90) 134/76 (95) 125/58 (80) Pulse Ox 96 96 97 O2 Delivery Room Air Room Air Room Air Room Air O2 Flow Rate 2.0 2.0 Intake and Output 12/09/18 12/09/18 12/10/18 15:00 23:00 07:00 Intake Total 1000 ml 150 ml 0 ml Output Total 1100 ml Balance 1000 ml 150 ml -1100 ml AMANDA IRBY III DO Dec 10, 2018 11:16
[2018-12-10] MEDS: DULERA INH SCH ×2 (12:40→20:59)
[2018-12-10] MEDS: SENNOSIDES/DOCUSATE 8.6/50MG TABLET. PO SCH (12:40)
[2018-12-10] MEDS: METOPROLOL TART IMMED RELEASE 50 MG TABLET. PO SCH ×2 (12:40→20:56)
[2018-12-10 15:00] VITALS: BP 117/60
--- NOTE | 2018-12-10 15:06 | NUR ---
SW following pt. Discussed with Dr. Batres about OP HD. At this time, unsure if pt will need OP HD. Physician believes pt's renal function will improve after doing dialysis the next two days. Discussed with RN as well.
--- NOTE | 2018-12-10 15:15 | PDOC ---
SUBJECTIVE ROS Seen on HD - 2 nd treatment today No complaints OBJECTIVE Vital Signs Vital Signs Date Time Temp Pulse Resp B/P (MAP) Pulse Ox O2 Delivery O2 Flow Rate FiO2 12/10/18 12:40 69 125/58 12/10/18 08:00 Room Air 2.0 12/10/18 07:00 97.6 16 97 97.6 I & 0 Intake and Output 12/10/18 07:00 Intake Total 1150 ml Output Total 1100 ml Balance 50 ml Intake Oral 150 ml IV Total 1000 ml Output Urine Total 1100 ml # Voids 2 PHYSICAL EXAM Physical Exam General: NAD HEENT: OM moist Lungs: Clear to auscultation Heart: Regular rate, Normal S1, Normal S2 Abdomen: Soft, No tenderness Extremities: No LE edema Skin: No rash Neuro: Normal speech, Sensation intact - No Ordoñez DIAGNOSIS/ASSESSMENT Assessment & Plan ARCENIO- Etiology uncertain ? 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 Pt reports was on Lisinopril/HCTZ from 2008- 2013 , it was dced by her PCP, not sure of the reason Reports taking it for 5 days approx 2 weeks back on her own as ran out of BP meds Anuric post UTI and Cipro, now good UOP No improvement in Renal function,no Micr hematuria, Proteinuria +, WBC + Renal US unremarkable s/p renal bx 12/09 and Temp HD cath placed- Initiated HD 12/09 treatment today- seen on HD, tolerating well Continue as ordered , Dw psychiatric cns, No UF Monitor for renal recovery Severe Hyponatremia - Improving HD today Recent UTI - Received Cipro Hx of HTN - BP stable Discussed at great length with Pt and son at bedside COMMENT/RELEVANT DATA Meds Current Medications Medications (Trade) Dose Ordered Sig/Jayden Start Time Stop Time Status Last Admin Dose Admin Albuterol Sulfate (Ventolin Neb Soln) 2.5 mg RTQID 12/07/18 22:00 12/09/18 14:23 DC 12/08/18 08:04 2.5 MG Budesonide (Pulmicort) 0.5 mg RTBID 12/07/18 22:00 12/09/18 14:23 DC 12/08/18 19:48 0.5 MG Ceftriaxone Sodium (Rocephin) 1 gm 1X ONCE 12/06/18 23:45 12/06/18 23:46 DC 12/06/18 23:45 1 GM Diphenhydramine HCl (Benadryl) 25 mg 1X PRN PRN 12/10/18 08:45 12/11/18 08:44 Fentanyl Citrate (Fentanyl 2ml Vial) 100 mcg 1X ONCE 12/09/18 10:45 12/09/18 10:46 DC 12/09/18 10:44 50 MCG Fluconazole (Diflucan) 100 mg 1X ONCE 12/06/18 23:45 12/06/18 23:46 DC 12/06/18 23:45 100 MG Gelatin (Gelfoam Size 12-7mm) 1 each STK-MED ONCE 12/09/18 10:00 12/09/18 10:01 DC Info (PHARMACY MONITORING -- do not chart) 1 each PRN DAILY PRN 12/10/18 08:45 Levothyroxine Sodium (Synthroid) 75 mcg DAILY06 12/07/18 06:00 12/10/18 05:17 75 MCG Lidocaine/Sodium Bicarbonate (Buffered Lidocaine 1%) 3 ml 1X ONCE 12/09/18 10:45 12/09/18 10:46 DC 12/09/18 10:44 8 ML Lorazepam (Ativan) 0.5 mg PRN Q6HRS PRN 12/07/18 03:00 12/09/18 20:28 0.5 MG Magnesium Sulfate 50 ml @ 25 mls/hr 1X ONCE 12/07/18 14:15 12/07/18 16:14 DC 12/07/18 15:41 25 MLS/HR Metoprolol Tartrate (Lopressor) 50 mg BID 12/07/18 09:00 12/10/18 12:40 50 MG Midazolam HCl (Versed) 2 mg 1X ONCE 12/09/18 10:45 12/09/18 10:46 DC 12/09/18 10:44 1 MG Non-Formulary Medication 1 ea BID 12/09/18 21:00 12/10/18 12:40 1 EA Non-Formulary Medication (Mometasone/ Formoterol (Dulera 100 Mcg/5 Mcg Inhaler)) 2 puff BID 12/08/18 09:00 UNV Ondansetron HCl (Zofran) 4 mg PRN Q8HRS PRN 12/07/18 00:30 12/08/18 00:29 DC 12/07/18 00:38 4 MG Senna/Docusate Sodium (Senna Plus) 1 tab DAILY 12/07/18 09:00 12/10/18 12:40 1 TAB Simvastatin (Zocor) 20 mg HS 12/07/18 21:00 12/09/18 20:28 20 MG Sodium Chloride 1,000 ml @ 400 mls/hr Q2H30M PRN 12/10/18 08:39 12/10/18 20:38 Sodium Chloride (Normal Saline Flush) 10 ml 1X PRN PRN 12/09/18 11:00 12/10/18 10:59 DC Lab Laboratory Tests Test 12/10/18 06:58 White Blood Count 6.8 x10^3/uL (4.0-11.0) Red Blood Count 3.34 x10^6/uL (3.50-5.40) Hemoglobin 12.0 g/dL (12.0-15.5) Hematocrit 34.7 % (36.0-47.0) Mean Corpuscular Volume 104 fL (79-100) Mean Corpuscular Hemoglobin 36 pg (25-35) Mean Corpuscular Hemoglobin Concent 35 g/dL (31-37) Red Cell Distribution Width 14.0 % (11.5-14.5) Platelet Count 193 x10^3/uL (140-400) Neutrophils (%) (Auto) 72 % (31-73) Lymphocytes (%) (Auto) 13 % (24-48) Monocytes (%) (Auto) 13 % (0-9) Eosinophils (%) (Auto) 1 % (0-3) Basophils (%) (Auto) 1 % (0-3) Neutrophils # (Auto) 4.9 x10^3uL (1.8-7.7) Lymphocytes # (Auto) 0.9 x10^3/uL (1.0-4.8) Monocytes # (Auto) 0.9 x10^3/uL (0.0-1.1) Eosinophils # (Auto) 0.1 x10^3/uL (0.0-0.7) Basophils # (Auto) 0.0 x10^3/uL (0.0-0.2) Sodium Level 133 mmol/L (136-145) Potassium Level 3.9 mmol/L (3.5-5.1) Chloride Level 98 mmol/L (98-107) Carbon Dioxide Level 26 mmol/L (21-32) Anion Gap 9 (6-14) Blood Urea Nitrogen 13 mg/dL (7-20) Creatinine 3.8 mg/dL (0.6-1.0) Estimated GFR (Cockcroft-Gault) 12.0 Glucose Level 94 mg/dL (70-99) Calcium Level 7.4 mg/dL (8.5-10.1) Hepatitis B Surface Antibody Nonreactive Results All relevant outside records, renal labs, imaging studies, telemetry/EKG's were reviewed. YANG FERREIRA MD Dec 10, 2018 15:15
--- NOTE | 2018-12-10 17:00 | NUR ---
Multiple questions about labs and procedures and the truck terminal manager POC. This RN explained the current goals of care, and patient verbalized understanding of this. This RN also suggested that she should write all her questions down and talk with the physicians airway traffic controller this weekend. Pt agreed to do this.
[2018-12-10 19:00] VITALS: BP 115/61
[2018-12-10] MEDS: SIMVASTATIN 20 MG TABLET PO SCH (20:56)
[2018-12-10] MEDS: LORazepam 0.5 MG TABLET PO PRN (20:56)
--- NOTE | 2018-12-10 21:00 | NUR ---
Non-administered patient second dose of Dulera due to pt stating she only takes once daily.
[2018-12-10 23:00] VITALS: BP 114/57
[2018-12-11 03:00] VITALS: BP 130/58
[2018-12-11] MEDS: IV NORMAL SALINE 1000ML BAG 1,000 ML IV SCH (06:03)
[2018-12-11] MEDS: LEVOTHYROXINE 75 MCG TABLET PO SCH (06:03)
[2018-12-11 06:14] LABS: BASO # 0.1 x10^3/uL (0.0-0.2); BASO % 1 % (0-3); EOS # 0.1 x10^3/uL (0.0-0.7); EOS % 2 % (0-3); HEMATOCRIT 31.9 % (36.0-47.0); HEMOGLOBIN 10.9 g/dL (12.0-15.5); LYMPH % 16 % (24-48); MEAN CORPUSCULAR HEMOGLOBIN 36 pg (25-35); MEAN CORPUSCULAR HGB CONC 34 g/dL (31-37); MEAN CORPUSCULAR VOLUME 104 fL (79-100); MONO # 0.9 x10^3/uL (0.0-1.1); MONO % 15 % (0-9); NEUT # 4.1 x10^3uL (1.8-7.7); NEUT % 66 % (31-73); PLATELET COUNT 175 x10^3/uL (140-400); RED BLOOD COUNT 3.06 x10^6/uL (3.50-5.40); RED CELL DISTRIBUTION WIDTH 13.9 % (11.5-14.5); WHITE BLOOD COUNT 6.1 x10^3/uL (4.0-11.0)
[2018-12-11 06:34] LABS: CALCIUM 7.5 mg/dL (8.5-10.1); CREATININE 2.5 mg/dL (0.6-1.0); GFR 19.4; POTASSIUM 3.1 mmol/L (3.5-5.1)
[2018-12-11 07:00] VITALS: BP 124/55
[2018-12-11] MEDS: SENNOSIDES/DOCUSATE 8.6/50MG TABLET. PO SCH (08:42)
[2018-12-11] MEDS: DULERA INH SCH ×2 (08:42→19:22)
[2018-12-11] MEDS: METOPROLOL TART IMMED RELEASE 50 MG TABLET. PO SCH ×2 (09:44→19:20)
[2018-12-11] MEDS ORDERED: POTASSIUM CHLORIDE 20 MEQ TABLET.ER. PO ONE (10:00)
[2018-12-11 11:00] VITALS: BP 131/71
--- NOTE | 2018-12-11 11:12 | PDOC ---
PROGRESS NOTES Chief Complaint Chief Complaint Hyponatremia and acute renal failure Urinary retention UTI HLD HTN Hypothyroidism SVT History of Present Illness History of Present Illness Pt sitting upright in bed, son at bedside Plans of care discussed with pt and son Denies any new complaints Pt reports she took a combined ACEinhib/HCTZ medication for ~5days PR[employer]. Vitals Vitals Vital Signs Date Time Temp Pulse Resp B/P (MAP) Pulse Ox O2 Delivery O2 Flow Rate FiO2 12/11/18 09:44 71 124/55 12/11/18 07:00 97.9 20 96 Room Air 97.9 12/10/18 08:00 2.0 Physical Exam General: Alert, Oriented X3, Cooperative, No acute distress, Other (Flat affect ) Heart: Regular rate, Normal S1, Normal S2, No murmurs, Other (R Subclavian HD access site) Lungs: Clear, Other (No crackles, wheezing or ronchi) Abdomen: Normal bowel sounds, Soft, No tenderness Extremities: No clubbing, No cyanosis, No edema Skin: No rashes, No breakdown, No significant lesion, Other (R subclavian Cath C/D/I) Labs LABS Laboratory Tests Test 12/10/18 11:20 12/11/18 05:30 Hepatitis B Core Total Antibody Negative (Negative) White Blood Count 6.1 x10^3/uL (4.0-11.0) Red Blood Count 3.06 x10^6/uL (3.50-5.40) Hemoglobin 10.9 g/dL (12.0-15.5) Hematocrit 31.9 % (36.0-47.0) Mean Corpuscular Volume 104 fL (79-100) Mean Corpuscular Hemoglobin 36 pg (25-35) Mean Corpuscular Hemoglobin Concent 34 g/dL (31-37) Red Cell Distribution Width 13.9 % (11.5-14.5) Platelet Count 175 x10^3/uL (140-400) Neutrophils (%) (Auto) 66 % (31-73) Lymphocytes (%) (Auto) 16 % (24-48) Monocytes (%) (Auto) 15 % (0-9) Eosinophils (%) (Auto) 2 % (0-3) Basophils (%) (Auto) 1 % (0-3) Neutrophils # (Auto) 4.1 x10^3uL (1.8-7.7) Lymphocytes # (Auto) 1.0 x10^3/uL (1.0-4.8) Monocytes # (Auto) 0.9 x10^3/uL (0.0-1.1) Eosinophils # (Auto) 0.1 x10^3/uL (0.0-0.7) Basophils # (Auto) 0.1 x10^3/uL (0.0-0.2) Sodium Level 141 mmol/L (136-145) Potassium Level 3.1 mmol/L (3.5-5.1) Chloride Level 102 mmol/L (98-107) Carbon Dioxide Level 30 mmol/L (21-32) Anion Gap 9 (6-14) Blood Urea Nitrogen 6 mg/dL (7-20) Creatinine 2.5 mg/dL (0.6-1.0) Estimated GFR (Cockcroft-Gault) 19.4 Glucose Level 103 mg/dL (70-99) Calcium Level 7.5 mg/dL (8.5-10.1) Review of Systems Review of Systems Denies N/V, F/C, CP, SOA, or changes in bowel habits Assessment and Plan Assessmemt and Plan Assessment: Acute renal failure, Cr improving, 2.5 today Hyponatremia, resolved, 141 today Hypomagnesemia, resolved Urinary retention UTI Yest cystitis HLD HTN Hypothyroidism, on Synthroid, TSH 2.3 SVT Plan: Discharge disposition pending, possible d/c Thursday following evaluation of kidney function and subsequent need for dialysis R subclavian cath placed for HD, HDx2, appreciate nephrology input Awaiting results of Renal Biopsy Refractory hyponatremia, improved following hypertonic saline and NS Awaiting urine and serum osmolarity U/s revealed no significant renal abnormality NS @ 100/hr Recheck labs in am PT/OT Ordered Home meds, holding losartan Monitor I&O's Problems Medical Problems: (1) Acute renal failure Status: Acute (2) Hypomagnesemia Status: Acute (3) Hyponatremia Status: Acute (4) UTI (urinary tract infection) Status: Acute (5) Yeast cystitis Status: Acute Comment Review of Relevant I have reviewed the following items timmy (where applicable) has been applied. Labs Laboratory Tests Test 12/10/18 06:58 12/10/18 11:20 12/11/18 05:30 White Blood Count 6.8 x10^3/uL (4.0-11.0) 6.1 x10^3/uL (4.0-11.0) Red Blood Count 3.34 x10^6/uL (3.50-5.40) 3.06 x10^6/uL (3.50-5.40) Hemoglobin 12.0 g/dL (12.0-15.5) 10.9 g/dL (12.0-15.5) Hematocrit 34.7 % (36.0-47.0) 31.9 % (36.0-47.0) Mean Corpuscular Volume 104 fL (79-100) 104 fL (79-100) Mean Corpuscular Hemoglobin 36 pg (25-35) 36 pg (25-35) Mean Corpuscular Hemoglobin Concent 35 g/dL (31-37) 34 g/dL (31-37) Red Cell Distribution Width 14.0 % (11.5-14.5) 13.9 % (11.5-14.5) Platelet Count 193 x10^3/uL (140-400) 175 x10^3/uL (140-400) Neutrophils (%) (Auto) 72 % (31-73) 66 % (31-73) Lymphocytes (%) (Auto) 13 % (24-48) 16 % (24-48) Monocytes (%) (Auto) 13 % (0-9) 15 % (0-9) Eosinophils (%) (Auto) 1 % (0-3) 2 % (0-3) Basophils (%) (Auto) 1 % (0-3) 1 % (0-3) Neutrophils # (Auto) 4.9 x10^3uL (1.8-7.7) 4.1 x10^3uL (1.8-7.7) Lymphocytes # (Auto) 0.9 x10^3/uL (1.0-4.8) 1.0 x10^3/uL (1.0-4.8) Monocytes # (Auto) 0.9 x10^3/uL (0.0-1.1) 0.9 x10^3/uL (0.0-1.1) Eosinophils # (Auto) 0.1 x10^3/uL (0.0-0.7) 0.1 x10^3/uL (0.0-0.7) Basophils # (Auto) 0.0 x10^3/uL (0.0-0.2) 0.1 x10^3/uL (0.0-0.2) Sodium Level 133 mmol/L (136-145) 141 mmol/L (136-145) Potassium Level 3.9 mmol/L (3.5-5.1) 3.1 mmol/L (3.5-5.1) Chloride Level 98 mmol/L (98-107) 102 mmol/L (98-107) Carbon Dioxide Level 26 mmol/L (21-32) 30 mmol/L (21-32) Anion Gap 9 (6-14) 9 (6-14) Blood Urea Nitrogen 13 mg/dL (7-20) 6 mg/dL (7-20) Creatinine 3.8 mg/dL (0.6-1.0) 2.5 mg/dL (0.6-1.0) Estimated GFR (Cockcroft-Gault) 12.0 19.4 Glucose Level 94 mg/dL (70-99) 103 mg/dL (70-99) Calcium Level 7.4 mg/dL (8.5-10.1) 7.5 mg/dL (8.5-10.1) Hepatitis B Surface Antibody Nonreactive Hepatitis B Core Total Antibody Negative (Negative) Laboratory Tests Test 12/10/18 11:20 12/11/18 05:30 Hepatitis B Core Total Antibody Negative (Negative) White Blood Count 6.1 x10^3/uL (4.0-11.0) Red Blood Count 3.06 x10^6/uL (3.50-5.40) Hemoglobin 10.9 g/dL (12.0-15.5) Hematocrit 31.9 % (36.0-47.0) Mean Corpuscular Volume 104 fL (79-100) Mean Corpuscular Hemoglobin 36 pg (25-35) Mean Corpuscular Hemoglobin Concent 34 g/dL (31-37) Red Cell Distribution Width 13.9 % (11.5-14.5) Platelet Count 175 x10^3/uL (140-400) Neutrophils (%) (Auto) 66 % (31-73) Lymphocytes (%) (Auto) 16 % (24-48) Monocytes (%) (Auto) 15 % (0-9) Eosinophils (%) (Auto) 2 % (0-3) Basophils (%) (Auto) 1 % (0-3) Neutrophils # (Auto) 4.1 x10^3uL (1.8-7.7) Lymphocytes # (Auto) 1.0 x10^3/uL (1.0-4.8) Monocytes # (Auto) 0.9 x10^3/uL (0.0-1.1) Eosinophils # (Auto) 0.1 x10^3/uL (0.0-0.7) Basophils # (Auto) 0.1 x10^3/uL (0.0-0.2) Sodium Level 141 mmol/L (136-145) Potassium Level 3.1 mmol/L (3.5-5.1) Chloride Level 102 mmol/L (98-107) Carbon Dioxide Level 30 mmol/L (21-32) Anion Gap 9 (6-14) Blood Urea Nitrogen 6 mg/dL (7-20) Creatinine 2.5 mg/dL (0.6-1.0) Estimated GFR (Cockcroft-Gault) 19.4 Glucose Level 103 mg/dL (70-99) Calcium Level 7.5 mg/dL (8.5-10.1) Microbiology 12/06/18 Urine Culture - Final, Complete 12/06/18 Urine Culture Result 1 (BOB) - Final, Complete Medications Current Medications Sodium Chloride 1,000 ml @ 1,000 mls/hr 1X ONCE IV Last administered on at 22:49; Start 12/06/18 at 23:00; Stop 12/06/18 at 23:59; Status DC Magnesium Sulfate 50 ml @ 25 mls/hr 1X ONCE IV Last administered on 12/06/18at 23:45; Start 12/06/18 at 23:45; Stop 12/07/18 at 01:44; Status DC Ceftriaxone Sodium (Rocephin) 1 gm 1X ONCE IVP Last administered on 12/06/18at 23:45; Start 12/06/18 at 23:45; Stop 12/06/18 at 23:46; Status DC Fluconazole (Diflucan) 100 mg 1X ONCE PO Last administered on 12/06/18 23:45; Start 12/06/18 at 23:45; Stop 12/06/18 at 23:46; Status DC Ondansetron HCl (Zofran) 4 mg PRN Q8HRS PRN IV NAUSEA/VOMITING 1ST CHOICE Last administered on 12/07/18 00:38; Start 12/07/18 at 00:30; Stop 12/08/18 at 00:29; Status DC Sodium Chloride 1,000 ml @ 100 mls/hr 1X ONCE IV Last administered on 02:05; Start 12/07/18 at 01:00; Stop 12/07/18 at 10:59; Status DC Levothyroxine Sodium (Synthroid) 75 mcg DAILY06 PO Last administered on 06:03; Start 12/07/18 at 06:00 Metoprolol Tartrate (Lopressor) 50 mg BID PO Last administered on 12/11/18 09: 44; Start 12/07/18 at 09:00 Senna/Docusate Sodium (Senna Plus) 1 tab DAILY PO Last administered on 08:42; Start 12/07/18 at 09:00 Simvastatin (Zocor) 20 mg HS PO Last administered on 12/10/18 20:56; Start 12/07 at 21:00 Lorazepam (Ativan) 0.5 mg PRN Q6HRS PRN PO ANXIETY / AGITATION Last administered on 12/10/18 20:56; Start 12/07/18 at 03:00 Sodium Chloride 1,000 ml @ 100 mls/hr Q10H IV Last administered on 12/11/18 06 :03; Start 12/07/18 at 06:00; Stop 12/11/18 at 09:26; Status DC Sodium Chloride 100 ml @ 30 mls/hr 1X ONCE IV Last administered on 12/07/18 10:25; Start 12/07/18 at 09:00; Stop 12/07/18 at 12:19; Status DC Magnesium Sulfate 50 ml @ 25 mls/hr 1X ONCE IV Last administered on 12/07/18 15:41; Start 12/07/18 at 14:15; Stop 12/07/18 at 16:14; Status DC Sodium Chloride 300 ml @ 0 mls/hr 1X ONCE IV Last administered on 12/07/18at 19: 12; Start 12/07/18 at 17:00; Stop 12/07/18 at 17:04; Status DC Non-Formulary Medication (Mometasone/ Formoterol (Dulera 100 Mcg/5 Mcg Inhaler) ) 2 puff BID IH ; Start 12/08/18 at 09:00; Status UNV Albuterol Sulfate (Ventolin Neb Soln) 2.5 mg RTQID NEB Last administered on 12/08at 08:04; Start 12/07/18 at 22:00; Stop 12/09/18 at 14:23; Status DC Budesonide (Pulmicort) 0.5 mg RTBID NEB Last administered on 12/08/18at 19:48; Start 12/07/18 at 22:00; Stop 12/09/18 at 14:23; Status DC Sodium Chloride 250 ml @ 30 mls/hr 1X ONCE IV Last administered on 12/08/18at 16:29; Start 12/08/18 at 13:00; Stop 12/08/18 at 21:19; Status DC Midazolam HCl (Versed) 2 mg STK-MED ONCE .ROUTE ; Start 12/09/18 at 09:46; Stop 12/09/18 at 09:47; Status DC Fentanyl Citrate (Fentanyl 2ml Vial) 100 mcg STK-MED ONCE .ROUTE ; Start at 09:47; Stop 12/09/18 at 09:48; Status DC Lidocaine/Sodium Bicarbonate (Buffered Lidocaine 1%) 3 ml STK-MED ONCE .ROUTE ; Start 12/09/18 at 10:00; Stop 12/09/18 at 10:01; Status DC Gelatin (Gelfoam Size 12-7mm) 1 each STK-MED ONCE .ROUTE ; Start 12/09/18 at 10: 00; Stop 12/09/18 at 10:01; Status DC Lidocaine/Sodium Bicarbonate (Buffered Lidocaine 1%) 3 ml STK-MED ONCE .ROUTE ; Start 12/09/18 at 10:09; Stop 12/09/18 at 10:10; Status DC Lidocaine/Sodium Bicarbonate (Buffered Lidocaine 1%) 3 ml 1X ONCE IJ Last administered on 12/09/18at 10:44; Start 12/09/18 at 10:45; Stop 12/09/18 at 10:46; Status DC Midazolam HCl (Versed) 2 mg 1X ONCE IV Last administered on 12/09/18at 10:44; Start 12/09/18 at 10:45; Stop 12/09/18 at 10:46; Status DC Fentanyl Citrate (Fentanyl 2ml Vial) 100 mcg 1X ONCE IV Last administered on at 10:44; Start 12/09/18 at 10:45; Stop 12/09/18 at 10:46; Status DC Sodium Chloride 1,000 ml @ 1,000 mls/hr Q1H PRN IV hypotension; Start 12/09/18 at 11:00; Stop 12/09/18 at 16:59; Status DC Sodium Chloride (Normal Saline Flush) 10 ml 1X PRN PRN IV AP catheter pack; Start 12/09/18 at 11:00; Stop 12/10/18 at 10:59; Status DC Sodium Chloride (Normal Saline Flush) 10 ml 1X PRN PRN IV [employer] catheter pack; Start 12/09/18 at 11:00; Stop 12/10/18 at 10:59; Status DC Sodium Chloride 1,000 ml @ 400 mls/hr Q2H30M PRN IV PATENCY; Start 12/09/18 at 11:00; Stop 12/09/18 at 22:59; Status DC Info (PHARMACY MONITORING -- do not chart) 1 each PRN DAILY PRN MC SEE COMMENTS ; Start 12/09/18 at 13:30; Stop 12/10/18 at 17:23; Status DC Info (PHARMACY MONITORING -- do not chart) 1 each PRN DAILY PRN MC SEE COMMENTS ; Start 12/09/18 at 13:30; Status UNV Non-Formulary Medication 1 ea BID INH Last administered on 12/11/18at 08:42; Start 12/09/18 at 21:00 Sodium Chloride 1,000 ml @ 1,000 mls/hr Q1H PRN IV hypotension; Start 12/10/18 at 08:39; Stop 12/10/18 at 14:38; Status DC Diphenhydramine HCl (Benadryl) 25 mg 1X PRN PRN IV ITCHING; Start 12/10/18 at 08 :45; Stop 12/11/18 at 08:44; Status DC Diphenhydramine HCl (Benadryl) 25 mg 1X PRN PRN IV ITCHING; Start 12/10/18 at 08 :45; Stop 12/11/18 at 08:44; Status DC Sodium Chloride 1,000 ml @ 400 mls/hr Q2H30M PRN IV PATENCY; Start 12/10/18 at 08:39; Stop 12/10/18 at 20:38; Status DC Info (PHARMACY MONITORING -- do not chart) 1 each PRN DAILY PRN MC SEE COMMENTS ; Start 12/10/18 at 08:45 Potassium Chloride (Klor-Con) 20 meq 1X ONCE PO Last administered on 12/11/18at 09:45; Start 12/11/18 at 10:00; Stop 12/11/18 at 10:01; Status DC Active Scripts Active Reported Dulera 100 Mcg/5 Mcg Inhaler (Mometasone/Formoterol) 13 Gm Hfa.aer.ad 2 Puff IH BID Metoprolol Tartrate 50 Mg Tablet 50 Mg PO BID Simvastatin 20 Mg Tablet 20 Mg PO HS Levothyroxine Sodium 75 Mcg Tablet 75 Mcg PO DAILYAC Senokot-S Tablet (Sennosides/Docusate Sodium) 1 Each Tablet 1 Each PO DAILY Losartan Potassium 50 Mg Tablet 50 Mg PO DAILY Vitals/I & O Vital Sign - Last 24 Hours 12/10/18 12/10/18 12/10/18 12/10/18 12:40 15:00 19:00 20:18 Temp 98.3 97.7 98.3 97.7 Pulse 69 62 73 Resp 16 16 B/P (MAP) 125/58 117/60 (79) 115/61 (79) Pulse Ox 95 95 O2 Delivery Room Air Room Air Room Air 12/10/18 12/10/18 12/11/18 12/11/18 20:56 23:00 03:00 07:00 Temp 98.1 97.6 97.9 98.1 97.6 97.9 Pulse 73 70 78 71 Resp 16 16 20 B/P (MAP) 115/61 114/57 (76) 130/58 (82) 124/55 (78) Pulse Ox 96 95 96 O2 Delivery Room Air Room Air Room Air 12/11/18 09:44 Pulse 71 B/P (MAP) 124/55 Intake and Output 4/01/2312/10/18 12/11/18 14:59 22:59 06:59 Intake Total 240 ml 400 ml Output Total 800 ml 1950 ml Balance 240 ml -400 ml -1950 ml AMANDA IRBY III DO Dec 11, 2018 11:12
--- NOTE | 2018-12-11 14:59 | PDOC ---
SUBJECTIVE ROS No new concerns, Complaints , good uop OBJECTIVE Vital Signs Vital Signs Date Time Temp Pulse Resp B/P (MAP) Pulse Ox O2 Delivery O2 Flow Rate FiO2 12/11/18 11:00 98.2 71 20 131/71 (91) 94 Room Air 98.2 12/10/18 08:00 2.0 I & 0 Intake and Output 12/11/18 07:00 Intake Total 640 ml Output Total 2750 ml Balance -2110 ml Intake Oral 640 ml Output Urine Total 2750 ml # Voids 103 PHYSICAL EXAM Physical Exam General: NAD HEENT: OM moist Lungs: Clear to auscultation Heart: Regular rate, Normal S1, Normal S2 Abdomen: Soft, No tenderness Extremities: No LE edema Skin: No rash Neuro: Normal speech, Sensation intact - No Ordoñez DIAGNOSIS/ASSESSMENT Assessment & Plan ARCENIO- Etiology uncertain ? 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 s/p renal biopsy on 12/09 - pending report Renal US unremarkable s/p renal bx 12/09 and Temp HD cath placed- Initiated HD 12/09 x 2 treatments No indication for HD today, Monitor for renal recovery over the weekend , continue strict I/O Dc IVF Severe Hyponatremia -resolved Hypokalemia- mild PO KCL x1 Recent UTI - Received Cipro Hx of HTN - BP stable Discussed at great length with Pt and son at bedside COMMENT/RELEVANT DATA Meds Current Medications Medications (Trade) Dose Ordered Sig/Jayden Start Time Stop Time Status Last Admin Dose Admin Albuterol Sulfate (Ventolin Neb Soln) 2.5 mg RTQID 12/07/18 22:00 12/09/18 14:23 DC 12/08/18 08:04 2.5 MG Budesonide (Pulmicort) 0.5 mg RTBID 12/07/18 22:00 12/09/18 14:23 DC 12/08/18 19:48 0.5 MG Ceftriaxone Sodium (Rocephin) 1 gm 1X ONCE 12/06/18 23:45 12/06/18 23:46 DC 12/06/18 23:45 1 GM Diphenhydramine HCl (Benadryl) 25 mg 1X PRN PRN 12/10/18 08:45 12/11/18 08:44 DC Fentanyl Citrate (Fentanyl 2ml Vial) 100 mcg 1X ONCE 12/09/18 10:45 12/09/18 10:46 DC 12/09/18 10:44 50 MCG Fluconazole (Diflucan) 100 mg 1X ONCE 12/06/18 23:45 12/06/18 23:46 DC 12/06/18 23:45 100 MG Gelatin (Gelfoam Size 12-7mm) 1 each STK-MED ONCE 12/09/18 10:00 12/09/18 10:01 DC Info (PHARMACY MONITORING -- do not chart) 1 each PRN DAILY PRN 12/10/18 08:45 Levothyroxine Sodium (Synthroid) 75 mcg DAILY06 12/07/18 06:00 12/11/18 06:03 75 MCG Lidocaine/Sodium Bicarbonate (Buffered Lidocaine 1%) 3 ml 1X ONCE 12/09/18 10:45 12/09/18 10:46 DC 12/09/18 10:44 8 ML Lorazepam (Ativan) 0.5 mg PRN Q6HRS PRN 12/07/18 03:00 12/10/18 20:56 0.5 MG Magnesium Sulfate 50 ml @ 25 mls/hr 1X ONCE 12/07/18 14:15 12/07/18 16:14 DC 12/07/18 15:41 25 MLS/HR Metoprolol Tartrate (Lopressor) 50 mg BID 12/07/18 09:00 12/11/18 09:44 50 MG Midazolam HCl (Versed) 2 mg 1X ONCE 12/09/18 10:45 12/09/18 10:46 DC 12/09/18 10:44 1 MG Non-Formulary Medication 1 ea BID 12/09/18 21:00 12/11/18 08:42 1 EA Non-Formulary Medication (Mometasone/ Formoterol (Dulera 100 Mcg/5 Mcg Inhaler)) 2 puff BID 12/08/18 09:00 UNV Ondansetron HCl (Zofran) 4 mg PRN Q8HRS PRN 12/07/18 00:30 12/08/18 00:29 DC 12/07/18 00:38 4 MG Potassium Chloride (Klor-Con) 20 meq 1X ONCE 12/11/18 10:00 12/11/18 10:01 DC 12/11/18 09:45 20 MEQ Senna/Docusate Sodium (Senna Plus) 1 tab DAILY 12/07/18 09:00 12/11/18 08:42 1 TAB Simvastatin (Zocor) 20 mg HS 12/07/18 21:00 12/10/18 20:56 20 MG Sodium Chloride 1,000 ml @ 400 mls/hr Q2H30M PRN 12/10/18 08:39 12/10/18 20:38 DC Sodium Chloride (Normal Saline Flush) 10 ml 1X PRN PRN 12/09/18 11:00 12/10/18 10:59 DC Lab Laboratory Tests Test 12/11/18 05:30 White Blood Count 6.1 x10^3/uL (4.0-11.0) Red Blood Count 3.06 x10^6/uL (3.50-5.40) Hemoglobin 10.9 g/dL (12.0-15.5) Hematocrit 31.9 % (36.0-47.0) Mean Corpuscular Volume 104 fL (79-100) Mean Corpuscular Hemoglobin 36 pg (25-35) Mean Corpuscular Hemoglobin Concent 34 g/dL (31-37) Red Cell Distribution Width 13.9 % (11.5-14.5) Platelet Count 175 x10^3/uL (140-400) Neutrophils (%) (Auto) 66 % (31-73) Lymphocytes (%) (Auto) 16 % (24-48) Monocytes (%) (Auto) 15 % (0-9) Eosinophils (%) (Auto) 2 % (0-3) Basophils (%) (Auto) 1 % (0-3) Neutrophils # (Auto) 4.1 x10^3uL (1.8-7.7) Lymphocytes # (Auto) 1.0 x10^3/uL (1.0-4.8) Monocytes # (Auto) 0.9 x10^3/uL (0.0-1.1) Eosinophils # (Auto) 0.1 x10^3/uL (0.0-0.7) Basophils # (Auto) 0.1 x10^3/uL (0.0-0.2) Sodium Level 141 mmol/L (136-145) Potassium Level 3.1 mmol/L (3.5-5.1) Chloride Level 102 mmol/L (98-107) Carbon Dioxide Level 30 mmol/L (21-32) Anion Gap 9 (6-14) Blood Urea Nitrogen 6 mg/dL (7-20) Creatinine 2.5 mg/dL (0.6-1.0) Estimated GFR (Cockcroft-Gault) 19.4 Glucose Level 103 mg/dL (70-99) Calcium Level 7.5 mg/dL (8.5-10.1) Results All relevant outside records, renal labs, imaging studies, telemetry/EKG's were reviewed. YANG FERREIRA MD Dec 11, 2018 14:59
[2018-12-11 15:00] VITALS: BP 148/69
[2018-12-11 19:10] VITALS: BP 145/61
[2018-12-11] MEDS: LORazepam 0.5 MG TABLET PO PRN (19:20)
[2018-12-11] MEDS: SIMVASTATIN 20 MG TABLET PO SCH (19:20)
[2018-12-12 03:38] VITALS: BP 142/63
[2018-12-12] MEDS: LEVOTHYROXINE 75 MCG TABLET PO SCH (06:00)
[2018-12-12 06:16] LABS: BASO # 0.1 x10^3/uL (0.0-0.2); BASO % 1 % (0-3); EOS # 0.2 x10^3/uL (0.0-0.7); EOS % 3 % (0-3); HEMATOCRIT 31.4 % (36.0-47.0); HEMOGLOBIN 10.4 g/dL (12.0-15.5); LYMPH # 1.2 x10^3/uL (1.0-4.8); LYMPH % 18 % (24-48); MEAN CORPUSCULAR HEMOGLOBIN 35 pg (25-35); MEAN CORPUSCULAR HGB CONC 33 g/dL (31-37); MEAN CORPUSCULAR VOLUME 105 fL (79-100); MONO % 15 % (0-9); NEUT % 63 % (31-73); PLATELET COUNT 185 x10^3/uL (140-400); RED CELL DISTRIBUTION WIDTH 13.6 % (11.5-14.5); WHITE BLOOD COUNT 6.4 x10^3/uL (4.0-11.0)
[2018-12-12 06:32] LABS: CALCIUM 7.4 mg/dL (8.5-10.1); CREATININE 2.1 mg/dL (0.6-1.0); GFR 23.7
[2018-12-12 06:55] VITALS: BP 122/64
[2018-12-12] MEDS: SENNOSIDES/DOCUSATE 8.6/50MG TABLET. PO SCH (08:52)
[2018-12-12] MEDS: METOPROLOL TART IMMED RELEASE 50 MG TABLET. PO SCH ×2 (08:53→20:44)
[2018-12-12] MEDS: DULERA INH SCH ×2 (09:00→20:47)
[2018-12-12 10:34] VITALS: BP 121/53
--- NOTE | 2018-12-12 13:25 | PDOC ---
PROGRESS NOTES Chief Complaint Chief Complaint Hyponatremia and acute renal failure Urinary retention UTI HLD HTN Hypothyroidism SVT History of Present Illness History of Present Illness Pt sitting upright in bed, son at bedside Denies any new complaints and reports she wants to have the temporary HD cath removed prior to d/c Discussed future plans of care with pt and son and possible need for HD, pending lab values Pt reports she took a combined ACEinhib/HCTZ medication for ~5days EQUIPMENT LEAD. Vitals Vitals Vital Signs Date Time Temp Pulse Resp B/P (MAP) Pulse Ox O2 Delivery O2 Flow Rate FiO2 12/12/18 10:34 98.4 58 16 121/53 (75) 93 Room Air 98.4 12/12/18 08:00 2.0 Physical Exam General: Alert, Oriented X3, Cooperative, No acute distress, Other (Flat affect ) Heart: Regular rate, Normal S1, Normal S2, No murmurs, Other (R Subclavian HD access site) Lungs: Clear, Other (No crackles, wheezing or ronchi) Abdomen: Normal bowel sounds, Soft, No tenderness Extremities: No clubbing, No cyanosis, No edema Skin: No rashes, No breakdown, No significant lesion, Other (R subclavian Cath C/D/I) Labs LABS Laboratory Tests Test 12/12/18 05:00 White Blood Count 6.4 x10^3/uL (4.0-11.0) Red Blood Count 3.00 x10^6/uL (3.50-5.40) Hemoglobin 10.4 g/dL (12.0-15.5) Hematocrit 31.4 % (36.0-47.0) Mean Corpuscular Volume 105 fL (79-100) Mean Corpuscular Hemoglobin 35 pg (25-35) Mean Corpuscular Hemoglobin Concent 33 g/dL (31-37) Red Cell Distribution Width 13.6 % (11.5-14.5) Platelet Count 185 x10^3/uL (140-400) Neutrophils (%) (Auto) 63 % (31-73) Lymphocytes (%) (Auto) 18 % (24-48) Monocytes (%) (Auto) 15 % (0-9) Eosinophils (%) (Auto) 3 % (0-3) Basophils (%) (Auto) 1 % (0-3) Neutrophils # (Auto) 4.0 x10^3uL (1.8-7.7) Lymphocytes # (Auto) 1.2 x10^3/uL (1.0-4.8) Monocytes # (Auto) 1.0 x10^3/uL (0.0-1.1) Eosinophils # (Auto) 0.2 x10^3/uL (0.0-0.7) Basophils # (Auto) 0.1 x10^3/uL (0.0-0.2) Sodium Level 141 mmol/L (136-145) Potassium Level 3.0 mmol/L (3.5-5.1) Chloride Level 103 mmol/L (98-107) Carbon Dioxide Level 29 mmol/L (21-32) Anion Gap 9 (6-14) Blood Urea Nitrogen 7 mg/dL (7-20) Creatinine 2.1 mg/dL (0.6-1.0) Estimated GFR (Cockcroft-Gault) 23.7 Glucose Level 101 mg/dL (70-99) Calcium Level 7.4 mg/dL (8.5-10.1) Review of Systems Review of Systems Denies N/V, Denies F/C Denies CP or SOA Assessment and Plan Assessmemt and Plan Assessment: Acute renal failure, Cr improving, 2.1 today off HD for 2 days Hypokalemia, 3.0 today Hyponatremia,141 resolved Hypomagnesemia, resolved Urinary retention UTI, tx Yest cystitis HLD HTN Hypothyroidism, on Synthroid, TSH 2.3 SVT Plan: Discharge disposition pending, possible d/c Thursday following evaluation of kidney function and subsequent need for dialysis Creatine has continued to normalize in the absence of HD, 2.1 today HypoKalemia, 3.0 today following 20Meq KCl yesterday per nephrology. Will await nephrologies input R subclavian cath placed for HD, HDx2, appreciate nephrology input Recommended to pt LEYLA/ARB be added to allergy list, pending biopsy results Awaiting results of Renal Biopsy Refractory hyponatremia, resolved following hypertonic saline and NS U/s revealed no significant renal abnormality Recheck labs in am PT/OT Ordered Home meds, holding losartan, on Metoprolol Monitor I&O's Problems Medical Problems: (1) Acute renal failure Status: Acute (2) Hypomagnesemia Status: Acute (3) Hyponatremia Status: Acute (4) UTI (urinary tract infection) Status: Acute (5) Yeast cystitis Status: Acute Comment Review of Relevant I have reviewed the following items timmy (where applicable) has been applied. Labs Laboratory Tests Test 12/11/18 05:30 12/12/18 05:00 White Blood Count 6.1 x10^3/uL (4.0-11.0) 6.4 x10^3/uL (4.0-11.0) Red Blood Count 3.06 x10^6/uL (3.50-5.40) 3.00 x10^6/uL (3.50-5.40) Hemoglobin 10.9 g/dL (12.0-15.5) 10.4 g/dL (12.0-15.5) Hematocrit 31.9 % (36.0-47.0) 31.4 % (36.0-47.0) Mean Corpuscular Volume 104 fL (79-100) 105 fL (79-100) Mean Corpuscular Hemoglobin 36 pg (25-35) 35 pg (25-35) Mean Corpuscular Hemoglobin Concent 34 g/dL (31-37) 33 g/dL (31-37) Red Cell Distribution Width 13.9 % (11.5-14.5) 13.6 % (11.5-14.5) Platelet Count 175 x10^3/uL (140-400) 185 x10^3/uL (140-400) Neutrophils (%) (Auto) 66 % (31-73) 63 % (31-73) Lymphocytes (%) (Auto) 16 % (24-48) 18 % (24-48) Monocytes (%) (Auto) 15 % (0-9) 15 % (0-9) Eosinophils (%) (Auto) 2 % (0-3) 3 % (0-3) Basophils (%) (Auto) 1 % (0-3) 1 % (0-3) Neutrophils # (Auto) 4.1 x10^3uL (1.8-7.7) 4.0 x10^3uL (1.8-7.7) Lymphocytes # (Auto) 1.0 x10^3/uL (1.0-4.8) 1.2 x10^3/uL (1.0-4.8) Monocytes # (Auto) 0.9 x10^3/uL (0.0-1.1) 1.0 x10^3/uL (0.0-1.1) Eosinophils # (Auto) 0.1 x10^3/uL (0.0-0.7) 0.2 x10^3/uL (0.0-0.7) Basophils # (Auto) 0.1 x10^3/uL (0.0-0.2) 0.1 x10^3/uL (0.0-0.2) Sodium Level 141 mmol/L (136-145) 141 mmol/L (136-145) Potassium Level 3.1 mmol/L (3.5-5.1) 3.0 mmol/L (3.5-5.1) Chloride Level 102 mmol/L (98-107) 103 mmol/L (98-107) Carbon Dioxide Level 30 mmol/L (21-32) 29 mmol/L (21-32) Anion Gap 9 (6-14) 9 (6-14) Blood Urea Nitrogen 6 mg/dL (7-20) 7 mg/dL (7-20) Creatinine 2.5 mg/dL (0.6-1.0) 2.1 mg/dL (0.6-1.0) Estimated GFR (Cockcroft-Gault) 19.4 23.7 Glucose Level 103 mg/dL (70-99) 101 mg/dL (70-99) Calcium Level 7.5 mg/dL (8.5-10.1) 7.4 mg/dL (8.5-10.1) Laboratory Tests Test 12/12/18 05:00 White Blood Count 6.4 x10^3/uL (4.0-11.0) Red Blood Count 3.00 x10^6/uL (3.50-5.40) Hemoglobin 10.4 g/dL (12.0-15.5) Hematocrit 31.4 % (36.0-47.0) Mean Corpuscular Volume 105 fL (79-100) Mean Corpuscular Hemoglobin 35 pg (25-35) Mean Corpuscular Hemoglobin Concent 33 g/dL (31-37) Red Cell Distribution Width 13.6 % (11.5-14.5) Platelet Count 185 x10^3/uL (140-400) Neutrophils (%) (Auto) 63 % (31-73) Lymphocytes (%) (Auto) 18 % (24-48) Monocytes (%) (Auto) 15 % (0-9) Eosinophils (%) (Auto) 3 % (0-3) Basophils (%) (Auto) 1 % (0-3) Neutrophils # (Auto) 4.0 x10^3uL (1.8-7.7) Lymphocytes # (Auto) 1.2 x10^3/uL (1.0-4.8) Monocytes # (Auto) 1.0 x10^3/uL (0.0-1.1) Eosinophils # (Auto) 0.2 x10^3/uL (0.0-0.7) Basophils # (Auto) 0.1 x10^3/uL (0.0-0.2) Sodium Level 141 mmol/L (136-145) Potassium Level 3.0 mmol/L (3.5-5.1) Chloride Level 103 mmol/L (98-107) Carbon Dioxide Level 29 mmol/L (21-32) Anion Gap 9 (6-14) Blood Urea Nitrogen 7 mg/dL (7-20) Creatinine 2.1 mg/dL (0.6-1.0) Estimated GFR (Cockcroft-Gault) 23.7 Glucose Level 101 mg/dL (70-99) Calcium Level 7.4 mg/dL (8.5-10.1) Microbiology 12/06/18 Urine Culture - Final, Complete 12/06/18 Urine Culture Result 1 (BOB) - Final, Complete Medications Current Medications Sodium Chloride 1,000 ml @ 1,000 mls/hr 1X ONCE IV Last administered on at 22:49; Start 12/06/18 at 23:00; Stop 12/06/18 at 23:59; Status DC Magnesium Sulfate 50 ml @ 25 mls/hr 1X ONCE IV Last administered on 12/06/18at 23:45; Start 12/06/18 at 23:45; Stop 12/07/18 at 01:44; Status DC Ceftriaxone Sodium (Rocephin) 1 gm 1X ONCE IVP Last administered on 12/06/18at 23:45; Start 12/06/18 at 23:45; Stop 12/06/18 at 23:46; Status DC Fluconazole (Diflucan) 100 mg 1X ONCE PO Last administered on 12/06/18at 23:45; Start 12/06/18 at 23:45; Stop 12/06/18 at 23:46; Status DC Ondansetron HCl (Zofran) 4 mg PRN Q8HRS PRN IV NAUSEA/VOMITING 1ST CHOICE Last administered on 12/07/18 00:38; Start 12/07/18 at 00:30; Stop 12/08/18 at 00:29; Status DC Sodium Chloride 1,000 ml @ 100 mls/hr 1X ONCE IV Last administered on 02:05; Start 12/07/18 at 01:00; Stop 12/07/18 at 10:59; Status DC Levothyroxine Sodium (Synthroid) 75 mcg DAILY06 PO Last administered on 06:03; Start 12/07/18 at 06:00 Metoprolol Tartrate (Lopressor) 50 mg BID PO Last administered on 12/12/18 08: 53; Start 12/07/18 at 09:00 Senna/Docusate Sodium (Senna Plus) 1 tab DAILY PO Last administered on 08:52; Start 12/07/18 at 09:00 Simvastatin (Zocor) 20 mg HS PO Last administered on 12/11/18 19:20; Start 12/07 at 21:00 Lorazepam (Ativan) 0.5 mg PRN Q6HRS PRN PO ANXIETY / AGITATION Last administered on 12/11/18 19:20; Start 12/07/18 at 03:00 Sodium Chloride 1,000 ml @ 100 mls/hr Q10H IV Last administered on 12/11/18 06 :03; Start 12/07/18 at 06:00; Stop 12/11/18 at 09:26; Status DC Sodium Chloride 100 ml @ 30 mls/hr 1X ONCE IV Last administered on 12/07/18 10:25; Start 12/07/18 at 09:00; Stop 12/07/18 at 12:19; Status DC Magnesium Sulfate 50 ml @ 25 mls/hr 1X ONCE IV Last administered on 4/2/19at 15:41; Start 12/07/18 at 14:15; Stop 12/07/18 at 16:14; Status DC Sodium Chloride 300 ml @ 0 mls/hr 1X ONCE IV Last administered on 12/07/18at 19: 12; Start 12/07/18 at 17:00; Stop 12/07/18 at 17:04; Status DC Non-Formulary Medication (Mometasone/ Formoterol (Dulera 100 Mcg/5 Mcg Inhaler) ) 2 puff BID IH ; Start 12/08/18 at 09:00; Status UNV Albuterol Sulfate (Ventolin Neb Soln) 2.5 mg RTQID NEB Last administered on 12/08at 08:04; Start 12/07/18 at 22:00; Stop 12/09/18 at 14:23; Status DC Budesonide (Pulmicort) 0.5 mg RTBID NEB Last administered on 12/08/18at 19:48; Start 12/07/18 at 22:00; Stop 12/09/18 at 14:23; Status DC Sodium Chloride 250 ml @ 30 mls/hr 1X ONCE IV Last administered on 12/08/18at 16:29; Start 12/08/18 at 13:00; Stop 12/08/18 at 21:19; Status DC Midazolam HCl (Versed) 2 mg STK-MED ONCE .ROUTE ; Start 12/09/18 at 09:46; Stop 12/09/18 at 09:47; Status DC Fentanyl Citrate (Fentanyl 2ml Vial) 100 mcg STK-MED ONCE .ROUTE ; Start at 09:47; Stop 12/09/18 at 09:48; Status DC Lidocaine/Sodium Bicarbonate (Buffered Lidocaine 1%) 3 ml STK-MED ONCE .ROUTE ; Start 12/09/18 at 10:00; Stop 12/09/18 at 10:01; Status DC Gelatin (Gelfoam Size 12-7mm) 1 each STK-MED ONCE .ROUTE ; Start 12/09/18 at 10: 00; Stop 12/09/18 at 10:01; Status DC Lidocaine/Sodium Bicarbonate (Buffered Lidocaine 1%) 3 ml STK-MED ONCE .ROUTE ; Start 12/09/18 at 10:09; Stop 12/09/18 at 10:10; Status DC Lidocaine/Sodium Bicarbonate (Buffered Lidocaine 1%) 3 ml 1X ONCE IJ Last administered on 12/09/18at 10:44; Start 12/09/18 at 10:45; Stop 12/09/18 at 10:46; Status DC Midazolam HCl (Versed) 2 mg 1X ONCE IV Last administered on 12/09/18at 10:44; Start 12/09/18 at 10:45; Stop 12/09/18 at 10:46; Status DC Fentanyl Citrate (Fentanyl 2ml Vial) 100 mcg 1X ONCE IV Last administered on at 10:44; Start 12/09/18 at 10:45; Stop 12/09/18 at 10:46; Status DC Sodium Chloride 1,000 ml @ 1,000 mls/hr Q1H PRN IV hypotension; Start 12/09/18 at 11:00; Stop 12/09/18 at 16:59; Status DC Sodium Chloride (Normal Saline Flush) 10 ml 1X PRN PRN IV AP catheter pack; Start 12/09/18 at 11:00; Stop 12/10/18 at 10:59; Status DC Sodium Chloride (Normal Saline Flush) 10 ml 1X PRN PRN IV NONPROFIT DIRECTOR catheter pack; Start 12/09/18 at 11:00; Stop 12/10/18 at 10:59; Status DC Sodium Chloride 1,000 ml @ 400 mls/hr Q2H30M PRN IV PATENCY; Start 12/09/18 at 11:00; Stop 12/09/18 at 22:59; Status DC Info (PHARMACY MONITORING -- do not chart) 1 each PRN DAILY PRN MC SEE COMMENTS ; Start 12/09/18 at 13:30; Stop 12/10/18 at 17:23; Status DC Info (PHARMACY MONITORING -- do not chart) 1 each PRN DAILY PRN MC SEE COMMENTS ; Start 12/09/18 at 13:30; Status UNV Non-Formulary Medication 1 ea BID INH Last administered on 12/12/18at 09:00; Start 12/09/18 at 21:00 Sodium Chloride 1,000 ml @ 1,000 mls/hr Q1H PRN IV hypotension; Start 12/10/18 at 08:39; Stop 12/10/18 at 14:38; Status DC Diphenhydramine HCl (Benadryl) 25 mg 1X PRN PRN IV ITCHING; Start 12/10/18 at 08 :45; Stop 12/11/18 at 08:44; Status DC Diphenhydramine HCl (Benadryl) 25 mg 1X PRN PRN IV ITCHING; Start 12/10/18 at 08 :45; Stop 12/11/18 at 08:44; Status DC Sodium Chloride 1,000 ml @ 400 mls/hr Q2H30M PRN IV PATENCY; Start 12/10/18 at 08:39; Stop 12/10/18 at 20:38; Status DC Info (PHARMACY MONITORING -- do not chart) 1 each PRN DAILY PRN MC SEE COMMENTS ; Start 12/10/18 at 08:45 Potassium Chloride (Klor-Con) 20 meq 1X ONCE PO Last administered on 12/11/18at 09:45; Start 12/11/18 at 10:00; Stop 12/11/18 at 10:01; Status DC Active Scripts Active Reported Dulera 100 Mcg/5 Mcg Inhaler (Mometasone/Formoterol) 13 Gm Hfa.aer.ad 2 Puff IH BID Metoprolol Tartrate 50 Mg Tablet 50 Mg PO BID Simvastatin 20 Mg Tablet 20 Mg PO HS Levothyroxine Sodium 75 Mcg Tablet 75 Mcg PO DAILYAC Senokot-S Tablet (Sennosides/Docusate Sodium) 1 Each Tablet 1 Each PO DAILY Losartan Potassium 50 Mg Tablet 50 Mg PO DAILY Vitals/I & O Vital Sign - Last 24 Hours 12/11/18 12/11/18 12/11/18 12/11/18 15:00 19:10 19:20 19:56 Temp 98.0 97.8 98.0 97.8 Pulse 76 79 79 Resp 20 20 B/P (MAP) 148/69 (95) 145/61 (89) 145/61 Pulse Ox 95 96 O2 Delivery Room Air Room Air Room Air 12/12/18 12/12/18 12/12/18 12/12/18 03:38 06:55 08:00 08:53 Temp 98.0 98.0 98.0 98.0 Pulse 74 82 82 Resp 20 18 B/P (MAP) 142/63 (89) 122/64 (83) 122/64 Pulse Ox 93 94 O2 Delivery Room Air Room Air Room Air O2 Flow Rate 2.0 12/12/18 10:34 Temp 98.4 98.4 Pulse 58 Resp 16 B/P (MAP) 121/53 (75) Pulse Ox 93 O2 Delivery Room Air Intake and Output 12/11/18 12/11/18 12/12/18 15:00 23:00 07:00 Intake Total 800 ml 200 ml 600 ml Output Total 1600 ml 400 ml 1900 ml Balance -800 ml -200 ml -1300 ml AMANDA IRBY III DO Dec 12, 2018 13:25
--- NOTE | 2018-12-12 14:09 | PDOC ---
SUBJECTIVE ROS Yesterday she was insisting that she wants HD as "someone told me that i will get for 3 days ' she was upset and tearul Today in good mood, no complaints OBJECTIVE Vital Signs Vital Signs Date Time Temp Pulse Resp B/P (MAP) Pulse Ox O2 Delivery O2 Flow Rate FiO2 12/12/18 10:34 98.4 58 16 121/53 (75) 93 Room Air 98.4 12/12/18 08:00 2.0 I & 0 Intake and Output 12/12/18 07:00 Intake Total 1600 ml Output Total 3900 ml Balance -2300 ml Intake Oral 1350 ml IV Total 250 ml Output Urine Total 3900 ml # Voids 1 PHYSICAL EXAM Physical Exam General: NAD HEENT: OM moist Lungs: Clear to auscultation Heart: Regular rate, Normal S1, Normal S2 Abdomen: Soft, No tenderness Extremities: No LE edema Skin: No rash Neuro: Normal speech, Sensation intact - No Ordoñez DIAGNOSIS/ASSESSMENT Assessment & Plan ARCENIO- Etiology uncertain ? 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 s/p renal biopsy on 12/09 - pending report Renal US unremarkable s/p renal bx 12/09 and Temp HD cath placed- Initiated HD 12/09 x 2 treatments No indication for HD today,Creat improving Re-eval in am Severe Hyponatremia -resolved Hypokalemia- mild Replace as indicated Recent UTI - Received Cipro Hx of HTN - BP stable Discussed A/P again with Pt and son at great length COMMENT/RELEVANT DATA Meds Current Medications Medications (Trade) Dose Ordered Sig/Jayden Start Time Stop Time Status Last Admin Dose Admin Albuterol Sulfate (Ventolin Neb Soln) 2.5 mg RTQID 12/07/18 22:00 12/09/18 14:23 DC 12/08/18 08:04 2.5 MG Budesonide (Pulmicort) 0.5 mg RTBID 12/07/18 22:00 12/09/18 14:23 DC 12/08/18 19:48 0.5 MG Ceftriaxone Sodium (Rocephin) 1 gm 1X ONCE 12/06/18 23:45 12/06/18 23:46 DC 12/06/18 23:45 1 GM Diphenhydramine HCl (Benadryl) 25 mg 1X PRN PRN 12/10/18 08:45 12/11/18 08:44 DC Fentanyl Citrate (Fentanyl 2ml Vial) 100 mcg 1X ONCE 12/09/18 10:45 12/09/18 10:46 DC 12/09/18 10:44 50 MCG Fluconazole (Diflucan) 100 mg 1X ONCE 12/06/18 23:45 12/06/18 23:46 DC 12/06/18 23:45 100 MG Gelatin (Gelfoam Size 12-7mm) 1 each STK-MED ONCE 12/09/18 10:00 12/09/18 10:01 DC Info (PHARMACY MONITORING -- do not chart) 1 each PRN DAILY PRN 12/10/18 08:45 Levothyroxine Sodium (Synthroid) 75 mcg DAILY06 12/07/18 06:00 12/11/18 06:03 75 MCG Lidocaine/Sodium Bicarbonate (Buffered Lidocaine 1%) 3 ml 1X ONCE 12/09/18 10:45 12/09/18 10:46 DC 12/09/18 10:44 8 ML Lorazepam (Ativan) 0.5 mg PRN Q6HRS PRN 12/07/18 03:00 12/11/18 19:20 0.5 MG Magnesium Sulfate 50 ml @ 25 mls/hr 1X ONCE 12/07/18 14:15 12/07/18 16:14 DC 12/07/18 15:41 25 MLS/HR Metoprolol Tartrate (Lopressor) 50 mg BID 12/07/18 09:00 12/12/18 08:53 50 MG Midazolam HCl (Versed) 2 mg 1X ONCE 12/09/18 10:45 12/09/18 10:46 DC 12/09/18 10:44 1 MG Non-Formulary Medication 1 ea BID 12/09/18 21:00 12/12/18 09:00 1 EA Non-Formulary Medication (Mometasone/ Formoterol (Dulera 100 Mcg/5 Mcg Inhaler)) 2 puff BID 12/08/18 09:00 UNV Ondansetron HCl (Zofran) 4 mg PRN Q8HRS PRN 12/07/18 00:30 12/08/18 00:29 DC 12/07/18 00:38 4 MG Potassium Chloride (Klor-Con) 20 meq 1X ONCE 12/11/18 10:00 12/11/18 10:01 DC 12/11/18 09:45 20 MEQ Senna/Docusate Sodium (Senna Plus) 1 tab DAILY 12/07/18 09:00 12/12/18 08:52 1 TAB Simvastatin (Zocor) 20 mg HS 12/07/18 21:00 12/11/18 19:20 20 MG Sodium Chloride 1,000 ml @ 400 mls/hr Q2H30M PRN 12/10/18 08:39 12/10/18 20:38 DC Sodium Chloride (Normal Saline Flush) 10 ml 1X PRN PRN 12/09/18 11:00 12/10/18 10:59 DC Lab Laboratory Tests Test 12/12/18 05:00 White Blood Count 6.4 x10^3/uL (4.0-11.0) Red Blood Count 3.00 x10^6/uL (3.50-5.40) Hemoglobin 10.4 g/dL (12.0-15.5) Hematocrit 31.4 % (36.0-47.0) Mean Corpuscular Volume 105 fL (79-100) Mean Corpuscular Hemoglobin 35 pg (25-35) Mean Corpuscular Hemoglobin Concent 33 g/dL (31-37) Red Cell Distribution Width 13.6 % (11.5-14.5) Platelet Count 185 x10^3/uL (140-400) Neutrophils (%) (Auto) 63 % (31-73) Lymphocytes (%) (Auto) 18 % (24-48) Monocytes (%) (Auto) 15 % (0-9) Eosinophils (%) (Auto) 3 % (0-3) Basophils (%) (Auto) 1 % (0-3) Neutrophils # (Auto) 4.0 x10^3uL (1.8-7.7) Lymphocytes # (Auto) 1.2 x10^3/uL (1.0-4.8) Monocytes # (Auto) 1.0 x10^3/uL (0.0-1.1) Eosinophils # (Auto) 0.2 x10^3/uL (0.0-0.7) Basophils # (Auto) 0.1 x10^3/uL (0.0-0.2) Sodium Level 141 mmol/L (136-145) Potassium Level 3.0 mmol/L (3.5-5.1) Chloride Level 103 mmol/L (98-107) Carbon Dioxide Level 29 mmol/L (21-32) Anion Gap 9 (6-14) Blood Urea Nitrogen 7 mg/dL (7-20) Creatinine 2.1 mg/dL (0.6-1.0) Estimated GFR (Cockcroft-Gault) 23.7 Glucose Level 101 mg/dL (70-99) Calcium Level 7.4 mg/dL (8.5-10.1) Results All relevant outside records, renal labs, imaging studies, telemetry/EKG's were reviewed. YANG FERREIRA MD Dec 12, 2018 14:09
[2018-12-12 14:26] VITALS: BP 127/57
[2018-12-12] MEDS ORDERED: POTASSIUM CHLORIDE 20 MEQ TABLET.ER. PO ONE (14:30)
[2018-12-12 19:59] VITALS: BP 140/78
[2018-12-12] MEDS: LORazepam 0.5 MG TABLET PO PRN (20:43)
[2018-12-12] MEDS: SIMVASTATIN 20 MG TABLET PO SCH (20:44)
[2018-12-13 02:56] VITALS: BP 139/63
[2018-12-13] MEDS: LEVOTHYROXINE 75 MCG TABLET PO SCH (06:42)
[2018-12-13 06:55] VITALS: BP 144/66
[2018-12-13 08:54] LABS: BASO # 0.1 x10^3/uL (0.0-0.2); BASO % 1 % (0-3); EOS # 0.2 x10^3/uL (0.0-0.7); EOS % 3 % (0-3); HEMATOCRIT 34.9 % (36.0-47.0); HEMOGLOBIN 11.8 g/dL (12.0-15.5); LYMPH # 1.2 x10^3/uL (1.0-4.8); LYMPH % 18 % (24-48); MEAN CORPUSCULAR HEMOGLOBIN 35 pg (25-35); MEAN CORPUSCULAR HGB CONC 34 g/dL (31-37); MEAN CORPUSCULAR VOLUME 103 fL (79-100); MONO # 0.6 x10^3/uL (0.0-1.1); MONO % 9 % (0-9); NEUT # 4.5 x10^3uL (1.8-7.7); NEUT % 69 % (31-73); PLATELET COUNT 221 x10^3/uL (140-400); RED BLOOD COUNT 3.38 x10^6/uL (3.50-5.40); RED CELL DISTRIBUTION WIDTH 13.9 % (11.5-14.5); WHITE BLOOD COUNT 6.5 x10^3/uL (4.0-11.0)
[2018-12-13] MEDS: DULERA INH SCH (09:00)
--- NOTE | 2018-12-13 09:00 | NUR ---
Pt stated that "someone delilah my blood at 0500 am and I want to know where it is." This RN spoke with [facility], who stated they did not have any blood drawn from 0500.
[2018-12-13 09:06] LABS: CALCIUM 7.1 mg/dL (8.5-10.1); CREATININE 1.7 mg/dL (0.6-1.0); GFR 30.3
[2018-12-13 09:10] LABS: POTASSIUM 2.8 mmol/L (3.5-5.1)
[2018-12-13] MEDS ORDERED: POTASSIUM CHLORIDE 20 MEQ TABLET.ER. PO ONE (09:45)
[2018-12-13] MEDS: SENNOSIDES/DOCUSATE 8.6/50MG TABLET. PO SCH (09:52)
[2018-12-13] MEDS: METOPROLOL TART IMMED RELEASE 50 MG TABLET. PO SCH (09:53)
--- NOTE | 2018-12-13 10:03 | PDOC ---
SUBJECTIVE ROS No complaints, wants to go home OBJECTIVE Vital Signs Vital Signs Date Time Temp Pulse Resp B/P (MAP) Pulse Ox O2 Delivery O2 Flow Rate FiO2 12/13/18 09:53 64 144/66 12/13/18 06:55 98.5 18 93 Room Air 98.5 12/12/18 08:00 2.0 I & 0 Intake and Output 12/13/18 07:00 Intake Total 2180 ml Output Total 4700 ml Balance -2520 ml Intake Oral 2180 ml Output Urine Total 4700 ml PHYSICAL EXAM Physical Exam General: NAD HEENT: OM moist Lungs: Clear to auscultation Heart: Regular rate, Normal S1, Normal S2 Abdomen: Soft, No tenderness Extremities: No LE edema Skin: No rash Neuro: Normal speech, Sensation intact - No Ordoñez DIAGNOSIS/ASSESSMENT Assessment & Plan ARCENIO- ? 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 s/p renal biopsy on 12/09 - pending report Renal US unremarkable s/p renal bx 12/09 and Temp HD cath placed- Initiated HD 12/09 x 2 treatments No indication for HD Creat improving Renal Bx report Pending Remove Temp Dialysis catheter, Ced RN Severe Hyponatremia -resolved Hypokalemia- KCL 40 meq given this am Dc home with KCL 20 meq QD - adjust based on follow up labs in nest few days as OP Recent UTI - Received Cipro Hx of HTN - BP stable Anticipated DC home today. Follow up BMP with PCP in 3-4 days Will schedule follow up with Renal as OP as well Discussed A/P with Pt and son at great length COMMENT/RELEVANT DATA Meds Current Medications Medications (Trade) Dose Ordered Sig/Jayden Start Time Stop Time Status Last Admin Dose Admin Albuterol Sulfate (Ventolin Neb Soln) 2.5 mg RTQID 12/07/18 22:00 12/09/18 14:23 DC 12/08/18 08:04 2.5 MG Budesonide (Pulmicort) 0.5 mg RTBID 12/07/18 22:00 12/09/18 14:23 DC 12/08/18 19:48 0.5 MG Ceftriaxone Sodium (Rocephin) 1 gm 1X ONCE 12/06/18 23:45 12/06/18 23:46 DC 12/06/18 23:45 1 GM Diphenhydramine HCl (Benadryl) 25 mg 1X PRN PRN 12/10/18 08:45 12/11/18 08:44 DC Fentanyl Citrate (Fentanyl 2ml Vial) 100 mcg 1X ONCE 12/09/18 10:45 12/09/18 10:46 DC 12/09/18 10:44 50 MCG Fluconazole (Diflucan) 100 mg 1X ONCE 12/06/18 23:45 12/06/18 23:46 DC 12/06/18 23:45 100 MG Gelatin (Gelfoam Size 12-7mm) 1 each STK-MED ONCE 12/09/18 10:00 12/09/18 10:01 DC Info (PHARMACY MONITORING -- do not chart) 1 each PRN DAILY PRN 12/10/18 08:45 Levothyroxine Sodium (Synthroid) 75 mcg DAILY06 12/07/18 06:00 12/13/18 06:42 75 MCG Lidocaine/Sodium Bicarbonate (Buffered Lidocaine 1%) 3 ml 1X ONCE 12/09/18 10:45 12/09/18 10:46 DC 12/09/18 10:44 8 ML Lorazepam (Ativan) 0.5 mg PRN Q6HRS PRN 12/07/18 03:00 12/12/18 20:43 0.5 MG Magnesium Sulfate 50 ml @ 25 mls/hr 1X ONCE 12/07/18 14:15 12/07/18 16:14 DC 12/07/18 15:41 25 MLS/HR Metoprolol Tartrate (Lopressor) 50 mg BID 12/07/18 09:00 12/13/18 09:53 50 MG Midazolam HCl (Versed) 2 mg 1X ONCE 12/09/18 10:45 12/09/18 10:46 DC 12/09/18 10:44 1 MG Non-Formulary Medication 1 ea BID 12/09/18 21:00 12/13/18 09:00 1 EA Non-Formulary Medication (Mometasone/ Formoterol (Dulera 100 Mcg/5 Mcg Inhaler)) 2 puff BID 12/08/18 09:00 UNV Ondansetron HCl (Zofran) 4 mg PRN Q8HRS PRN 12/07/18 00:30 12/08/18 00:29 DC 12/07/18 00:38 4 MG Potassium Chloride (Klor-Con) 40 meq 1X ONCE 12/13/18 09:45 12/13/18 09:46 DC 12/13/18 09:53 40 MEQ Senna/Docusate Sodium (Senna Plus) 1 tab DAILY 12/07/18 09:00 12/13/18 09:52 1 TAB Simvastatin (Zocor) 20 mg HS 12/07/18 21:00 12/12/18 20:44 20 MG Sodium Chloride 1,000 ml @ 400 mls/hr Q2H30M PRN 12/10/18 08:39 12/10/18 20:38 DC Sodium Chloride (Normal Saline Flush) 10 ml 1X PRN PRN 12/09/18 11:00 12/10/18 10:59 DC Lab Laboratory Tests Test 12/13/18 08:37 White Blood Count 6.5 x10^3/uL (4.0-11.0) Red Blood Count 3.38 x10^6/uL (3.50-5.40) Hemoglobin 11.8 g/dL (12.0-15.5) Hematocrit 34.9 % (36.0-47.0) Mean Corpuscular Volume 103 fL (79-100) Mean Corpuscular Hemoglobin 35 pg (25-35) Mean Corpuscular Hemoglobin Concent 34 g/dL (31-37) Red Cell Distribution Width 13.9 % (11.5-14.5) Platelet Count 221 x10^3/uL (140-400) Neutrophils (%) (Auto) 69 % (31-73) Lymphocytes (%) (Auto) 18 % (24-48) Monocytes (%) (Auto) 9 % (0-9) Eosinophils (%) (Auto) 3 % (0-3) Basophils (%) (Auto) 1 % (0-3) Neutrophils # (Auto) 4.5 x10^3uL (1.8-7.7) Lymphocytes # (Auto) 1.2 x10^3/uL (1.0-4.8) Monocytes # (Auto) 0.6 x10^3/uL (0.0-1.1) Eosinophils # (Auto) 0.2 x10^3/uL (0.0-0.7) Basophils # (Auto) 0.1 x10^3/uL (0.0-0.2) Sodium Level 142 mmol/L (136-145) Potassium Level 2.8 mmol/L (3.5-5.1) Chloride Level 101 mmol/L (98-107) Carbon Dioxide Level 30 mmol/L (21-32) Anion Gap 11 (6-14) Blood Urea Nitrogen 4 mg/dL (7-20) Creatinine 1.7 mg/dL (0.6-1.0) Estimated GFR (Cockcroft-Gault) 30.3 Glucose Level 140 mg/dL (70-99) Calcium Level 7.1 mg/dL (8.5-10.1) Results All relevant outside records, renal labs, imaging studies, telemetry/EKG's were reviewed. YANG FERREIRA MD Dec 13, 2018 10:03
[2018-12-13 10:32] VITALS: BP 140/52
--- NOTE | 2018-12-13 11:32 | PDOC ---
PROGRESS NOTES Chief Complaint Chief Complaint Hyponatremia and acute renal failure Urinary retention UTI HLD HTN Hypothyroidism SVT History of Present Illness History of Present Illness Pt seen and examined this am Denies any new complaints Wants temporary HD cath removed prior to d/c Pt reports she took a combined ACEinhib/HCTZ medication for ~5days [employer] WA[employer]/WAITRESS. Vitals Vitals Vital Signs Date Time Temp Pulse Resp B/P (MAP) Pulse Ox O2 Delivery O2 Flow Rate FiO2 12/13/18 10:32 98.0 75 19 140/52 (81) 93 Room Air 98.0 12/12/18 08:00 2.0 Physical Exam General: Alert, Oriented X3, Cooperative, No acute distress, Other (Flat affect ) Heart: Regular rate, Normal S1, Normal S2, No murmurs, Other (R Subclavian HD access site) Lungs: Clear, Other (No crackles, wheezing or ronchi) Abdomen: Normal bowel sounds, Soft, No tenderness Extremities: No clubbing, No cyanosis, No edema Skin: No rashes, No breakdown, No significant lesion, Other (R subclavian Cath C/D/I) Labs LABS Laboratory Tests Test 12/13/18 08:37 White Blood Count 6.5 x10^3/uL (4.0-11.0) Red Blood Count 3.38 x10^6/uL (3.50-5.40) Hemoglobin 11.8 g/dL (12.0-15.5) Hematocrit 34.9 % (36.0-47.0) Mean Corpuscular Volume 103 fL (79-100) Mean Corpuscular Hemoglobin 35 pg (25-35) Mean Corpuscular Hemoglobin Concent 34 g/dL (31-37) Red Cell Distribution Width 13.9 % (11.5-14.5) Platelet Count 221 x10^3/uL (140-400) Neutrophils (%) (Auto) 69 % (31-73) Lymphocytes (%) (Auto) 18 % (24-48) Monocytes (%) (Auto) 9 % (0-9) Eosinophils (%) (Auto) 3 % (0-3) Basophils (%) (Auto) 1 % (0-3) Neutrophils # (Auto) 4.5 x10^3uL (1.8-7.7) Lymphocytes # (Auto) 1.2 x10^3/uL (1.0-4.8) Monocytes # (Auto) 0.6 x10^3/uL (0.0-1.1) Eosinophils # (Auto) 0.2 x10^3/uL (0.0-0.7) Basophils # (Auto) 0.1 x10^3/uL (0.0-0.2) Sodium Level 142 mmol/L (136-145) Potassium Level 2.8 mmol/L (3.5-5.1) Chloride Level 101 mmol/L (98-107) Carbon Dioxide Level 30 mmol/L (21-32) Anion Gap 11 (6-14) Blood Urea Nitrogen 4 mg/dL (7-20) Creatinine 1.7 mg/dL (0.6-1.0) Estimated GFR (Cockcroft-Gault) 30.3 Glucose Level 140 mg/dL (70-99) Calcium Level 7.1 mg/dL (8.5-10.1) Review of Systems Review of Systems Denies N/v, F/C, CP and SOA Assessment and Plan Assessmemt and Plan Assessment: Acute renal failure, Cr improving, 1.7 today after being off HD for the weekend Hypokalemia, 2.8 today, replaced Hyponatremia, resolved Hypomagnesemia, resolved Urinary retention UTI, tx'ed Yest cystitis HLD HTN Hypothyroidism, on Synthroid, TSH 2.3 SVT Plan: D/c home today, nephrology concurs given creatine trending down w/o HD over the weekend Pt request removal of temporary HD cath prior to d/c today. F/u with PCP in 1-2 weeks, recheck Cr. HypoKalemia, 2.8 today, 40 Meq KCL ordered, recheck lab R subclavian cath placed for HD, HDx2 Recommended to pt LEYLA/ARB be added to allergy list, pending biopsy results Metoprolol for BP control Awaiting results of Renal Biopsy U/s revealed no significant renal abnormalities Problems Medical Problems: (1) Acute renal failure Status: Acute (2) Hypomagnesemia Status: Acute (3) Hyponatremia Status: Acute (4) UTI (urinary tract infection) Status: Acute (5) Yeast cystitis Status: Acute Comment Review of Relevant I have reviewed the following items timmy (where applicable) has been applied. Labs Laboratory Tests Test 12/12/18 05:00 12/13/18 08:37 White Blood Count 6.4 x10^3/uL (4.0-11.0) 6.5 x10^3/uL (4.0-11.0) Red Blood Count 3.00 x10^6/uL (3.50-5.40) 3.38 x10^6/uL (3.50-5.40) Hemoglobin 10.4 g/dL (12.0-15.5) 11.8 g/dL (12.0-15.5) Hematocrit 31.4 % (36.0-47.0) 34.9 % (36.0-47.0) Mean Corpuscular Volume 105 fL (79-100) 103 fL (79-100) Mean Corpuscular Hemoglobin 35 pg (25-35) 35 pg (25-35) Mean Corpuscular Hemoglobin Concent 33 g/dL (31-37) 34 g/dL (31-37) Red Cell Distribution Width 13.6 % (11.5-14.5) 13.9 % (11.5-14.5) Platelet Count 185 x10^3/uL (140-400) 221 x10^3/uL (140-400) Neutrophils (%) (Auto) 63 % (31-73) 69 % (31-73) Lymphocytes (%) (Auto) 18 % (24-48) 18 % (24-48) Monocytes (%) (Auto) 15 % (0-9) 9 % (0-9) Eosinophils (%) (Auto) 3 % (0-3) 3 % (0-3) Basophils (%) (Auto) 1 % (0-3) 1 % (0-3) Neutrophils # (Auto) 4.0 x10^3uL (1.8-7.7) 4.5 x10^3uL (1.8-7.7) Lymphocytes # (Auto) 1.2 x10^3/uL (1.0-4.8) 1.2 x10^3/uL (1.0-4.8) Monocytes # (Auto) 1.0 x10^3/uL (0.0-1.1) 0.6 x10^3/uL (0.0-1.1) Eosinophils # (Auto) 0.2 x10^3/uL (0.0-0.7) 0.2 x10^3/uL (0.0-0.7) Basophils # (Auto) 0.1 x10^3/uL (0.0-0.2) 0.1 x10^3/uL (0.0-0.2) Sodium Level 141 mmol/L (136-145) 142 mmol/L (136-145) Potassium Level 3.0 mmol/L (3.5-5.1) 2.8 mmol/L (3.5-5.1) Chloride Level 103 mmol/L (98-107) 101 mmol/L (98-107) Carbon Dioxide Level 29 mmol/L (21-32) 30 mmol/L (21-32) Anion Gap 9 (6-14) 11 (6-14) Blood Urea Nitrogen 7 mg/dL (7-20) 4 mg/dL (7-20) Creatinine 2.1 mg/dL (0.6-1.0) 1.7 mg/dL (0.6-1.0) Estimated GFR (Cockcroft-Gault) 23.7 30.3 Glucose Level 101 mg/dL (70-99) 140 mg/dL (70-99) Calcium Level 7.4 mg/dL (8.5-10.1) 7.1 mg/dL (8.5-10.1) Laboratory Tests Test 12/13/18 08:37 White Blood Count 6.5 x10^3/uL (4.0-11.0) Red Blood Count 3.38 x10^6/uL (3.50-5.40) Hemoglobin 11.8 g/dL (12.0-15.5) Hematocrit 34.9 % (36.0-47.0) Mean Corpuscular Volume 103 fL (79-100) Mean Corpuscular Hemoglobin 35 pg (25-35) Mean Corpuscular Hemoglobin Concent 34 g/dL (31-37) Red Cell Distribution Width 13.9 % (11.5-14.5) Platelet Count 221 x10^3/uL (140-400) Neutrophils (%) (Auto) 69 % (31-73) Lymphocytes (%) (Auto) 18 % (24-48) Monocytes (%) (Auto) 9 % (0-9) Eosinophils (%) (Auto) 3 % (0-3) Basophils (%) (Auto) 1 % (0-3) Neutrophils # (Auto) 4.5 x10^3uL (1.8-7.7) Lymphocytes # (Auto) 1.2 x10^3/uL (1.0-4.8) Monocytes # (Auto) 0.6 x10^3/uL (0.0-1.1) Eosinophils # (Auto) 0.2 x10^3/uL (0.0-0.7) Basophils # (Auto) 0.1 x10^3/uL (0.0-0.2) Sodium Level 142 mmol/L (136-145) Potassium Level 2.8 mmol/L (3.5-5.1) Chloride Level 101 mmol/L (98-107) Carbon Dioxide Level 30 mmol/L (21-32) Anion Gap 11 (6-14) Blood Urea Nitrogen 4 mg/dL (7-20) Creatinine 1.7 mg/dL (0.6-1.0) Estimated GFR (Cockcroft-Gault) 30.3 Glucose Level 140 mg/dL (70-99) Calcium Level 7.1 mg/dL (8.5-10.1) Microbiology 12/06/18 Urine Culture - Final, Complete 12/06/18 Urine Culture Result 1 (BOB) - Final, Complete Medications Current Medications Sodium Chloride 1,000 ml @ 1,000 mls/hr 1X ONCE IV Last administered on at 22:49; Start 12/06/18 at 23:00; Stop 12/06/18 at 23:59; Status DC Magnesium Sulfate 50 ml @ 25 mls/hr 1X ONCE IV Last administered on 12/06/18at 23:45; Start 12/06/18 at 23:45; Stop 12/07/18 at 01:44; Status DC Ceftriaxone Sodium (Rocephin) 1 gm 1X ONCE IVP Last administered on 12/06/18at 23:45; Start 12/06/18 at 23:45; Stop 12/06/18 at 23:46; Status DC Fluconazole (Diflucan) 100 mg 1X ONCE PO Last administered on 12/06/18at 23:45; Start 12/06/18 at 23:45; Stop 12/06/18 at 23:46; Status DC Ondansetron HCl (Zofran) 4 mg PRN Q8HRS PRN IV NAUSEA/VOMITING 1ST CHOICE Last administered on 12/07/18at 00:38; Start 12/07/18 at 00:30; Stop 12/08/18 at 00:29; Status DC Sodium Chloride 1,000 ml @ 100 mls/hr 1X ONCE IV Last administered on 02:05; Start 12/07/18 at 01:00; Stop 12/07/18 at 10:59; Status DC Levothyroxine Sodium (Synthroid) 75 mcg DAILY06 PO Last administered on 06:42; Start 12/07/18 at 06:00 Metoprolol Tartrate (Lopressor) 50 mg BID PO Last administered on 12/13/18 09: 53; Start 12/07/18 at 09:00 Senna/Docusate Sodium (Senna Plus) 1 tab DAILY PO Last administered on 09:52; Start 12/07/18 at 09:00 Simvastatin (Zocor) 20 mg HS PO Last administered on 12/12/18 20:44; Start 12/07 at 21:00 Lorazepam (Ativan) 0.5 mg PRN Q6HRS PRN PO ANXIETY / AGITATION Last administered on 12/12/18 20:43; Start 12/07/18 at 03:00 Sodium Chloride 1,000 ml @ 100 mls/hr Q10H IV Last administered on 12/11/18 06 :03; Start 12/07/18 at 06:00; Stop 12/11/18 at 09:26; Status DC Sodium Chloride 100 ml @ 30 mls/hr 1X ONCE IV Last administered on 12/07/18 10:25; Start 12/07/18 at 09:00; Stop 12/07/18 at 12:19; Status DC Magnesium Sulfate 50 ml @ 25 mls/hr 1X ONCE IV Last administered on 12/07/18 15:41; Start 12/07/18 at 14:15; Stop 12/07/18 at 16:14; Status DC Sodium Chloride 300 ml @ 0 mls/hr 1X ONCE IV Last administered on 12/07/18at 19: 12; Start 12/07/18 at 17:00; Stop 12/07/18 at 17:04; Status DC Non-Formulary Medication (Mometasone/ Formoterol (Dulera 100 Mcg/5 Mcg Inhaler) ) 2 puff BID IH ; Start 12/08/18 at 09:00; Status UNV Albuterol Sulfate (Ventolin Neb Soln) 2.5 mg RTQID NEB Last administered on 12/08at 08:04; Start 12/07/18 at 22:00; Stop 12/09/18 at 14:23; Status DC Budesonide (Pulmicort) 0.5 mg RTBID NEB Last administered on 12/08/18at 19:48; Start 12/07/18 at 22:00; Stop 12/09/18 at 14:23; Status DC Sodium Chloride 250 ml @ 30 mls/hr 1X ONCE IV Last administered on 12/08/18at 16:29; Start 12/08/18 at 13:00; Stop 12/08/18 at 21:19; Status DC Midazolam HCl (Versed) 2 mg STK-MED ONCE .ROUTE ; Start 12/09/18 at 09:46; Stop 12/09/18 at 09:47; Status DC Fentanyl Citrate (Fentanyl 2ml Vial) 100 mcg STK-MED ONCE .ROUTE ; Start at 09:47; Stop 12/09/18 at 09:48; Status DC Lidocaine/Sodium Bicarbonate (Buffered Lidocaine 1%) 3 ml STK-MED ONCE .ROUTE ; Start 12/09/18 at 10:00; Stop 12/09/18 at 10:01; Status DC Gelatin (Gelfoam Size 12-7mm) 1 each STK-MED ONCE .ROUTE ; Start 12/09/18 at 10: 00; Stop 12/09/18 at 10:01; Status DC Lidocaine/Sodium Bicarbonate (Buffered Lidocaine 1%) 3 ml STK-MED ONCE .ROUTE ; Start 12/09/18 at 10:09; Stop 12/09/18 at 10:10; Status DC Lidocaine/Sodium Bicarbonate (Buffered Lidocaine 1%) 3 ml 1X ONCE IJ Last administered on 12/09/18at 10:44; Start 12/09/18 at 10:45; Stop 12/09/18 at 10:46; Status DC Midazolam HCl (Versed) 2 mg 1X ONCE IV Last administered on 12/09/18at 10:44; Start 12/09/18 at 10:45; Stop 12/09/18 at 10:46; Status DC Fentanyl Citrate (Fentanyl 2ml Vial) 100 mcg 1X ONCE IV Last administered on at 10:44; Start 12/09/18 at 10:45; Stop 12/09/18 at 10:46; Status DC Sodium Chloride 1,000 ml @ 1,000 mls/hr Q1H PRN IV hypotension; Start 12/09/18 at 11:00; Stop 12/09/18 at 16:59; Status DC Sodium Chloride (Normal Saline Flush) 10 ml 1X PRN PRN IV AP catheter pack; Start 12/09/18 at 11:00; Stop 12/10/18 at 10:59; Status DC Sodium Chloride (Normal Saline Flush) 10 ml 1X PRN PRN IV [employer] catheter pack; Start 12/09/18 at 11:00; Stop 12/10/18 at 10:59; Status DC Sodium Chloride 1,000 ml @ 400 mls/hr Q2H30M PRN IV PATENCY; Start 12/09/18 at 11:00; Stop 12/09/18 at 22:59; Status DC Info (PHARMACY MONITORING -- do not chart) 1 each PRN DAILY PRN MC SEE COMMENTS ; Start 12/09/18 at 13:30; Stop 12/10/18 at 17:23; Status DC Info (PHARMACY MONITORING -- do not chart) 1 each PRN DAILY PRN MC SEE COMMENTS ; Start 12/09/18 at 13:30; Status UNV Non-Formulary Medication 1 ea BID INH Last administered on 12/13/18at 09:00; Start 12/09/18 at 21:00 Sodium Chloride 1,000 ml @ 1,000 mls/hr Q1H PRN IV hypotension; Start 12/10/18 at 08:39; Stop 12/10/18 at 14:38; Status DC Diphenhydramine HCl (Benadryl) 25 mg 1X PRN PRN IV ITCHING; Start 12/10/18 at 08 :45; Stop 12/11/18 at 08:44; Status DC Diphenhydramine HCl (Benadryl) 25 mg 1X PRN PRN IV ITCHING; Start 12/10/18 at 08 :45; Stop 12/11/18 at 08:44; Status DC Sodium Chloride 1,000 ml @ 400 mls/hr Q2H30M PRN IV PATENCY; Start 12/10/18 at 08:39; Stop 12/10/18 at 20:38; Status DC Info (PHARMACY MONITORING -- do not chart) 1 each PRN DAILY PRN MC SEE COMMENTS ; Start 12/10/18 at 08:45 Potassium Chloride (Klor-Con) 20 meq 1X ONCE PO Last administered on 12/11/18at 09:45; Start 12/11/18 at 10:00; Stop 12/11/18 at 10:01; Status DC Potassium Chloride (Klor-Con) 20 meq 1X ONCE PO Last administered on 12/12/18at 14:42; Start 12/12/18 at 14:30; Stop 12/12/18 at 14:31; Status DC Potassium Chloride (Klor-Con) 40 meq 1X ONCE PO Last administered on 12/13/18at 09:53; Start 12/13/18 at 09:45; Stop 12/13/18 at 09:46; Status DC Active Scripts Active Reported Dulera 100 Mcg/5 Mcg Inhaler (Mometasone/Formoterol) 13 Gm Hfa.aer.ad 2 Puff IH BID Metoprolol Tartrate 50 Mg Tablet 50 Mg PO BID Simvastatin 20 Mg Tablet 20 Mg PO HS Levothyroxine Sodium 75 Mcg Tablet 75 Mcg PO DAILYAC Senokot-S Tablet (Sennosides/Docusate Sodium) 1 Each Tablet 1 Each PO DAILY Vitals/I & O Vital Sign - Last 24 Hours 12/12/18 12/12/18 12/12/18 12/12/18 14:26 19:59 20:26 20:44 Temp 98.5 98.4 98.5 98.4 Pulse 73 82 82 Resp 18 18 B/P (MAP) 127/57 (80) 140/78 (98) 140/78 Pulse Ox 96 95 O2 Delivery Room Air Room Air Room Air 12/13/18 12/13/18 12/13/18 12/13/18 02:56 06:55 09:53 10:32 Temp 98.6 98.5 98.0 98.6 98.5 98.0 Pulse 70 64 64 75 Resp 18 18 19 B/P (MAP) 139/63 (88) 144/66 (92) 144/66 140/52 (81) Pulse Ox 90 93 93 O2 Delivery Room Air Room Air Room Air Intake and Output 12/12/18 12/12/18 12/13/18 14:59 22:59 06:59 Intake Total 1040 ml 1140 ml Output Total 1300 ml 1650 ml 1750 ml Balance -260 ml -510 ml -1750 ml AMANDA IRBY III DO Dec 13, 2018 11:32
--- NOTE | 2018-12-13 12:00 | NUR ---
Kelly, nursing steel pan form placing supervisor spoke with IR and they agreed to pull out the temporary dialysis catheter at the bedside. Catheter removed without complications and pt tolerated without complaints.
[2018-12-13] MEDS: LORazepam 0.5 MG TABLET PO PRN (12:57)
--- NOTE | 2018-12-13 19:12 | DS ---
DATE OF DISCHARGE: 12/13/2018 ADMISSION DIAGNOSIS: Acute renal failure. DISCHARGE DIAGNOSES: Resolving acute renal failure, probably secondary to LEYLA inhibitor and hydrochlorothiazide combination drug. CONSULTS: Dr. Batres. PROCEDURES: 1. Dialysis x 3. 2. Temporary dialysis catheter placement. 3. Renal biopsy. HOSPITAL COURSE: The patient is a pleasant middle-aged female who presented with acute renal failure. At first, we were not clear what could be going on. She denied taking any new drugs prescribed. She denied having previous history of renal failure. Her sodium was surprisingly critically low as well into the 119 range. Her creatinine was as high as 6. We admitted her and over the next few days, we discovered that she had been taking her mom's combination drug of lisinopril and hydrochlorothiazide. She brought the drug in, the box had been for several years. We were convinced this was probably causing her renal failure. We consulted Nephrology. Since the patient was anuric and her creatinine was so high, we had to go ahead and dialyze her. Now over the past couple of days, her creatinine has come down precipitously, it is down to 1.7 and she has not dialyzed in a few days. Once again, we are sure that the lisinopril was most likely causing her disease. We did do a renal biopsy, the results are pending. Clinically, the patient is doing great. This morning, I examined her. Her heart tones were normal and her lungs were clear. We plan to discharge if okay with Nephrology and have her see her doctor in a few weeks. DISPOSITION: Home. ACTIVITY: As tolerated. DIET: Low sodium. MEDICATIONS: Please see the MRAD. We did tell her please do not take any LEYLA inhibitors or diuretics. TOTAL TIME: 31 minutes. AMANDA IRBY DO DR: MARGY/amie JOB#: [id number] / [id number]
--- NOTE | 2018-12-15 15:06 | PATHOLOGY ---
[facility] Accession Number: [id number] . 01 Material submitted: . kidney - LEFT RENAL BIOPSY. Modifiers: left . 01 Clinical history: . Renal failure and low NA. . 02 Diagnosis: Special studies report received from [facility], [address] [place] [address], [facility] [address] [address], on case [id number], labeled with their number [id number], dated 12/10/2018. . Specimen submitted: By Ronn Mobley MD For Kidney, biopsy . DIAGNOSIS: . Acute Tubular Injury. See Comment. . Comment: Ischemic and toxic forms of tubular injury should be considered. No evidence of immune complex-mediated or paraprotein-related renal disease is identified. See table below for summary or chronicity findings: . Chronicity Summary Total Glomeruli- 12 Global Glomerulosclerosis- 0 Segmental Sclerosis- Absent Interstitial Fibrosis- Absent Tubular Atrophy- Absent Arterial Intimal Fibrosis- Absent Arteriolar Hyalinosis- Absent . . Clinical History: The patient is a 63-year-old female who was treated for UTI last week and on investigation was found to have elevated creatinine. Past medical history is significant for hypertension. Hemoglobin is 12.9. Creatinine is 4.1. . Gross Description: Received from [facility] via [facility] are two foreign specimen bottles; one bottle contains formalin and the other contains Venkatesh's fixative. The bottles are labeled with the patient's name (Samantha Addison) and outside number (Accession No. [id number]). . Received in formalin is one piece of tissue measuring approximately 1.2 x 0.1 x 0.1 cm (gan, dissected). One piece is submitted for electron microscopy and the remainder of the tissue is submitted in its entirety for light microscopy. . Received in Venkatesh's fixative is one piece of tissue measuring approximately 1.2 x 0.1 x 0.1 cm (gan, curled, bloody). The specimen is submitted in its entirety for immunofluorescence microscopy. . Microscopic Description: LIGHT MICROSCOPY: . Tissue submitted for light microscopic examination is represented by approximately 60% cortex and 40% medulla. There are eight glomeruli present, one of which are globally sclerotic. The glomeruli appear normal in size and cellularity with patent capillary lumina and glomerular basement membrane of normal thickness. There is no evidence of endocapillary proliferation, fibrinoid necrosis, or crescent formation. The tubules display changes of diffuse tubular injury characterized by luminal ectasia, cytoplasmic simplification, and prominent nucleoli. No atypical casts are identified. There is no significant tubular atrophy, interstitial fibrosis, interstitial inflammation, or vascular disease. Congo red stain for amyloid is negative. Toluidine blue-stained section for electron microscopy shows three glomeruli, none of which are globally sclerotic. . Standard of care requirements for proper analysis of renal biopsies mandates serial sections, and PAS, Walker silver, trichrome and SMMT stains at multiple levels. PAS stains are used to evaluate various aspects of the glomerular, tubular, and vascular basement membranes. Walker silver stains are used to evaluate thickening, reduplication, "spiking" or "bubbling" of the glomerular basement membrane. Toluidine blue stained sections highlight glomerular basement membranes and demonstrates unusual types of deposits. It also reveals details of tubular epithelial cells and aids in the analysis of vascular lesions. Joy trichrome stains are used to evaluate interstitial fibrosis and basement membrane deposits. The SMMT stain helps evaluate basement membrane changes, immune deposits and tubulointerstitial scarring. Controls are routinely run on all special stains and are verified for acceptability. A review of the technical quality of routine slides is made before results are reported. . . IMMUNOFLUORESCENCE: The sections are stained for IgG, IgM, IgA, C3, C1q, albumin, fibrinogen, kappa and lambda light chains. One intact glomerulus is present for evaluation without scerlosis. All stains are negative in the single glomerulus examined. There is no significant extraglomerular staining. Crockett and lambda stain equally throughout the tubulointerstitium. . ELECTRON MICROSCOPY: One block is prepared. Ultrastructural evaluation of glomerulus reveals basement membranes which are uniform and are of normal thickness. Glomerular capillary loops are patent. No immune-type electron-dense deposits are present along the glomerular basement membranes or within the mesangium. There is mild segmental epithelial foot process effacement. The tubular basement membranes are unremarkable. . Special procedures including immunofluorescence and electron microscopy correlate with the light microscopy findings. . Note: Some of the tests reported here may have been developed and performance characteristics determined by [facility]. They have not been cleared or approved by the U.S. Food and Drug Administration (FDA). The FDA does not require this test to go through premarket FDA review. This test is used for clinical purposes. It should not be regarded as investigational or for research. [facility] is certified under the Clinical Laboratory Improvement Amendments of 1988 (CLIA) as qualified to perform high complexity clinical laboratory testing. . Physician/Physician's office called on 12/10/2018 at 3:15 PM Central. . *I have reviewed the clinical history, the pertinent gross findings, all microscopic materials, discussed the case with the clinician when appropriate, and have rendered the final diagnosis. . . Final Diagnosis performed by Ward Dillard M.D. Electronically signed 12/10/2018 5:28:17 PM . . A complete copy of the report is on file. . Professional and technical services performed by [facility] at [address] [place] [address], [address], [facility] [place]. . (AMJ 12/14/2018) AZJ/12/14/2018 . 02 Electronically signed: . Wes Mclean MD, Pathologist NPI- [id number] . 01 Gross description: . Received in two containers, formalin and Venkatesh's solution, both labeled "Azael, Samantha, left renal BX" are two cylindrical, red-gan soft tissue cores measuring 1.0 x 0.1 cm each. The specimen is forwarded to [facility] for further processing. (SK; 12/09/2018) SYC/SYC . 02 Pathologist provided ICD-10: N19 . 02 CPT . 129940 Specimen Comment: A courtesy copy of this report has been sent to Specimen Comment: [phone], , , . Specimen Comment: Report sent to ,DR MOBLEY,DR RIFDR UDAY VELEZ Performed at: 01 [facility] [address], [place], [place] [id number] MD Lino Cantu MD Phone: [phone] Performed at: 02 [facility] [address] [place], [place] [id number] MD Wes Mclean MD Phone: [phone]
== END 2018-12-13 13:20 | disposition home or self-care (01) | DRG 683 ==
LOC: ER 21:05 → 6 SOUTH 12-07 00:10
PROVIDERS: ADMIT Internal Medicine; ATTEND Internal Medicine
PROC: 02HV33Z Insertion of Infusion Device into Superior Vena Cava, Percutaneous Approach (ICD-10-PCS; principal; 2018-12-09)
PROC: B5181ZA Fluoroscopy of Superior Vena Cava using Low Osmolar Contrast, Guidance (ICD-10-PCS; 2018-12-09)
PROC: B548ZZA Ultrasonography of Superior Vena Cava, Guidance (ICD-10-PCS; 2018-12-09)
PROC: 0TB13ZX Excision of Left Kidney, Percutaneous Approach, Diagnostic (ICD-10-PCS; 2018-12-09)
PROC: 5A1D70Z Performance of Urinary Filtration, Intermittent, Less than 6 Hours Per Day (ICD-10-PCS; 2018-12-09)
PROC: 5A1D70Z Performance of Urinary Filtration, Intermittent, Less than 6 Hours Per Day (ICD-10-PCS; 2018-12-10)
DX: N17.9 Acute kidney failure, unspecified (principal); B37.41 Candidal cystitis and urethritis; E87.1 Hypo-osmolality and hyponatremia; I47.1 Supraventricular tachycardia; E83.42 Hypomagnesemia; E78.00 Pure hypercholesterolemia, unspecified; I10 Essential (primary) hypertension; E03.9 Hypothyroidism, unspecified; F41.9 Anxiety disorder, unspecified; E78.5 Hyperlipidemia, unspecified; E87.6 Hypokalemia; T46.4X5A Adverse effect of angiotensin-converting-enzyme inhibitors, initial encounter; Y92.89 Other specified places as the place of occurrence of the external cause; Z88.5 Allergy status to narcotic agent; Z82.49 Family history of ischemic heart disease and other diseases of the circulatory system
CPT/HCPCS: 36415; 36556; 50200; 76770; 76937; 76942; 77001; 80048; 80053; 81001; 82436; 83735; 83930; 83935; 84100; 84133; 84295; 84300; 84443; 85025; 85610; 86704; 86706; 87086; 87340; 87517; 94640; 94760; 96361; 96365; 96375; 99152; A4215; C1892; J0696; J2250; J2405; J3010; J3475; J3490; J7030; J7613; J7626; 97116; 99291-25